=== PATIENT | female | born 1960 | race American Indian/Alaskan Native ===

== ENCOUNTER 2017-09-08 15:45 | Inpatient (IN) | payer MEDICAID ==
[2017-09-08 15:45] VITALS: BMI 30.4
--- NOTE | 2017-09-08 17:28 | C.PDOC ---
History Of Present Illness <Rachel Rodriges - Last Filed: 09/08/17 19:10> <Joslyn Montana - Last Filed: 09/08/17 22:25> 57 y/o female, with history of metastatic breast cancer for intermittent dizziness, headache, abdominal distension, vomiting, poor appetite, and generalized weakness. Patient states that her Oncologist sent her to the ER for evaluation. (Rachel Rodriges) History Per: Patient History/Exam Limitations: no limitations Onset/Duration Of Symptoms: Days Current Symptoms Are (Timing): Still Present Severity: Moderate <Rachel Rodriges - Last Filed: 09/08/17 19:10> <Joslyn Montana - Last Filed: 09/08/17 22:25> Time Seen by Provider: 09/08/17 17:11 Chief Complaint (Nursing): Abdominal Pain Past Medical History Reviewed: Historical Data, Nursing Documentation, Vital Signs - Medical History PMH: Anxiety, Depression, Fractures (RT.INDEX FINGER NO SURGERY), Gastritis, HTN Surgical History: Endoscopy Family History: States: No Known Family Hx - Social History Hx Alcohol Use: No Hx Substance Use: No - Immunization History Hx Tetanus Toxoid Vaccination: No Hx Influenza Vaccination: No Hx Pneumococcal Vaccination: No <Rachel Rodriges - Last Filed: 09/08/17 19:10> Vital Signs: Last Vital Signs Temp 98.2 F 09/08/17 16:41 Pulse 125 H 09/08/17 16:41 Resp 20 09/08/17 16:41 BP 154/83 H 09/08/17 16:41 Pulse Ox 97 09/08/17 19:10 Review Of Systems Except As Marked, All Systems Reviewed And Found Negative. Constitutional: Positive for: Weakness. Negative for: Fever, Chills Gastrointestinal: Positive for: Vomiting Neurological: Positive for: Headache, Dizziness <Rachel Rodriges - Last Filed: 09/08/17 19:10> Physical Exam - Physical Exam Appears: Non-toxic, Chronically Ill Skin: Normal Color, Warm Head: Atraumatic, Normacephalic Eye(s): bilateral: Normal Inspection Nose: Normal Oral Mucosa: Moist Neck: Supple Chest: Symmetrical Cardiovascular: Rhythm Regular Respiratory: Normal Breath Sounds, No Accessory Muscle Use, No Rales, No Rhonchi , No Wheezing Gastrointestinal/Abdominal: Normal Exam, Soft, Tenderness (mild tenderness in lower abdomen), Distention Extremity: Normal ROM Neurological/Psych: Oriented x3, Normal Speech, Normal Motor, Normal Sensation <Rachel Rodriges - Last Filed: 09/08/17 19:10> ED Course And Treatment - Laboratory Results Result Diagrams: 18 18:39 0218 18:39 O2 Sat by Pulse Oximetry: 97 (RA) Pulse Ox Interpretation: Normal - Radiology CXR: Interpreted by Me, Viewed By Me CXR Interpretation: Yes: No Acute Disease Progress Note: CXR, CT-Head and CT-Abd/Pelv. have been ordered. Patient will be admitted to hospital. <Rachel Rodriges - Last Filed: 09/08/17 19:10> - Laboratory Results Result Diagrams: 09/08/17 18:39 02 18:39 - CT Scan/US CT head Other Rad Studies (CT/US): Read By Radiologist, Radiology Report Reviewed CT/US Interpretation: EXAM: CT Head Without Intravenous Contrast. CLINICAL HISTORY: 57 years old, female; Pain; Headache; Headache not specified; Patient HX: H/o breast ca; Additional. info: Headache/nausea. TECHNIQUE: Axial computed tomography images of the head/brain without intravenous contrast. All CT scans at. this facility use one or more dose reduction techniques, viz.: automated exposure control; ma/kV. adjustment per patient size (including targeted exams where dose is matched to indication; i.e. head);. or iterative reconstruction technique. COMPARISON: No relevant prior studies available. FINDINGS: Brain: Old bilateral lacunar infarcts. Hypodensity in the white matter consistent with chronic small. vessel disease. No intracranial mass, mass effect, or midline shift. No hemorrhage. Ventricles: Unremarkable. No ventriculomegaly. Bones/joints: Unremarkable. No acute fracture. Soft tissues : Unremarkable. Sinuses: Unremarkable as visualized. No acute sinusitis. Mastoid air cells: Unremarkable as visualized. No mastoid effusion. IMPRESSION : No acute intracranial abnormality Ct abd/pelvis Other Rad Studies (CT/US): Read By Radiologist, Radiology Report Reviewed CT/US Interpretation: EXAM: CT Abdomen and Pelvis With Intravenous Contrast. CLINICAL HISTORY: 57 years old, female; Pain; Abdominal pain; Generalized; Additional info: Abd pain/poor appetite, h/o. breast ca. TECHNIQUE: Axial computed tomography images of the abdomen and pelvis with intravenous contrast. All CT. scans at this facility use one or more dose reduction techniques, viz. : automated exposure control;. ma/kV adjustment per patient size (including targeted exams where dose is matched to indication; i.e. head); or iterative reconstruction technique. Coronal and sagittal reformatted images were created and reviewed. CONTRAST: 100 mL of omnipaque 300 administered intravenously. COMPARISON: CT - IR NEEDLE BX LIVER PERC 2015-08-18 12:21. FINDINGS: Lower thorax: Trace left pleural effusion. Mild cardiomegaly. Nonspecific thickening of the distal. esophagus. Subsegmental atelectasis left lung base. ABDOMEN: Liver: Hepatomegaly. Markedly heterogeneous liver with nodular contour suggestive of cirrhosis. Multiple hypodense areas within the liver. Cannot exclude underlying metastatic lesions. Gallbladder and bile ducts: Gallbladder not definitely visualized. No ductal dilation. Pancreas: Unremarkable. No mass. No ductal dilation. Spleen: Unremarkable. No splenomegaly. Adrenals: Right adrenal gland is 2.5 CM indeterminate left adrenal mass. Kidneys and ureters: Moderate right hydronephrosis. Tiny bilateral renal cortical cysts. Stomach and bowel: Stomach is unremarkable. No small bowel obstruction. Large amount retained. stool in colon. Appendix: No findings to suggest acute appendicitis. PELVIS: Bladder: Unremarkable. No mass. Reproductive: Hysterectomy. ABDOMEN and PELVIS: Intraperitoneal space: Small amount of perihepatic ascites. Trace pelvic ascites. No free air. Bones/joints: Diffuse sclerotic osseous metastases. No acute fracture. No dislocation. Soft tissues: Diffuse subcutaneous edema. Vasculature: Atherosclerotic vascular disease. No abdominal aortic aneurysm. Lymph nodes: Unremarkable. No enlarged lymph nodes. Tubes, lines and devices: Catheter tip in superior vena cava. Other findings : Stranding of the mesenteric fat. IMPRESSION: 1. Hepatomegaly. Markedly heterogeneous liver with nodular contour suggestive of cirrhosis. Multiple hypodense areas within the liver. Cannot exclude underlying metastatic lesions. 2. Constipation. 3. Moderate right hydronephrosis. 4. Indeterminate left adrenal mass. 5. Diffuse osseous metastases. <Joslyn Montana - Last Filed: 09/08/17 22:25> Disposition - Disposition Disposition Time: 19:09 <Rachel Rodriges - Last Filed: 09/08/17 19:10> <Joslyn Montana - Last Filed: 09/08/17 22:25> - Disposition Disposition: HOSPITALIZED Condition: FAIR Forms: [facility] ([place]) - Clinical Impression Clinical Impression: Abdominal pain, Vomiting, Nausea, Headache, Metastatic breast cancer - PA / BOOKKEEPING ASSISTANT / Resident Statement MD/DO has reviewed & agrees with the documentation as recorded. - Scribe Statement The provider has reviewed the documentation as recorded by the Scribe <Rachel Rodriges - Last Filed: 09/08/17 19:10> <Joslyn Montana - Last Filed: 09/08/17 22:25> - Scribe Statement Vijaya Ann Provider Attestation All medical record entries made by the Scribe were at my direction and personally dictated by me. I have reviewed the chart and agree that the record accurately reflects my personal performance of the history, physical exam, medical decision making, and the department course for this patient. I have also personally directed, reviewed, and agree with the discharge instructions and disposition. (Rachel Rodriges) Physician Patient Turnover Patient Signed Over To: Joslyn Montana Handoff Comments: Ct abd/pelvis and head CT pending <Rachel Rodriges - Last Filed: 09/08/17 19:10>
[2017-09-08] MEDS ORDERED: Sodium Chloride 0.9% 500 ML IV STA (17:29)
[2017-09-08] MEDS ORDERED: Iohexol 240 (50 ml) PO STA (17:29)
[2017-09-08] MEDS ORDERED: Sodium Chloride 0.9% 500 ML IV ONE (18:11)
[2017-09-08] MEDS ORDERED: Iohexol 240 (50 ml) ONE (18:11)
[2017-09-08 18:52] LABS: SQUAMOUS EPITHIAL 1 /hpf (0-5); URINE BACTERIA OCC (<OCC); URINE BILIRUBIN NEGATIVE (NEGATIVE); URINE BLOOD NEGATIVE (NEGATIVE); URINE CLARITY Clear (Clear); URINE COLOR Amber (YELLOW); URINE GLUCOSE (UA) 1+ mg/dL (Normal); URINE LEUKOCYTE ESTERASE NEG Leu/uL (Negative); URINE PROTEIN 1+ mg/dL (NEGATIVE)
[2017-09-08 18:54] LABS: HEMOGLOBIN 10.7 g/dL (11.0-16.0); MEAN CELL VOLUME 93.4 fL (81.0-99.0); MEAN CORPUSCULAR HEMOGLOBIN 31.8 pg (27.0-31.0); MEAN PLATELET VOLUME 9.4 fL (7.2-11.7); PLATELET COUNT 175 K/uL (130-400); RBC 3.37 Mil/uL (3.80-5.20); RED CELL DISTRIBUTION WIDTH 15.4 % (11.5-14.5); WHITE BLOOD COUNT 5.4 K/uL (4.8-10.8)
[2017-09-08 19:07] LABS: ALB/GLOB RATIO 0.6 (1.0-2.1); ALBUMIN 2.9 g/dL (3.5-5.0); ALT/SGPT 108 U/L (9-52); AST/SGOT 491 U/L (14-36); BLOOD UREA NITROGEN 19 mg/dL (7-17); CALCIUM 8.3 mg/dl (8.6-10.4); GFR AFRICAN-AMERICAN > 60; GFR NON-AFRICAN AMERICAN > 60
[2017-09-08] MEDS ORDERED: Iohexol 300 100 ML IJ ONE (19:41)
[2017-09-08 20:04] LABS: LYMPH # 0.3 K/uL (1.0-4.3); MONO # 0.1 K/uL (0.0-0.8)
[2017-09-08 20:15] LABS: ANISOCYTOSIS SLIGHT; HYPOCHROMIC SLIGHT; LYMPHOCYTE 4 % (20-40); MONOCYTE 3 % (0-10); NEUTROPHIL 93 % (50-75); NUCLEATED RED BLOOD CELL 1 % (0-0); PLATELET ESTIMATE NORMAL (NORMAL); POIKILOCYTOSIS SLIGHT; TARGET CELLS SLIGHT; TOTAL CELLS COUNTED 100
--- NOTE | 2017-09-08 20:56 | CT ---
EXAM: CT Head Without Intravenous Contrast CLINICAL HISTORY: 57 years old, female; Pain; Headache; Headache not specified; Patient HX: H/o breast ca; Additional info: Headache/nausea TECHNIQUE: Axial computed tomography images of the head/brain without intravenous contrast. All CT scans at this facility use one or more dose reduction techniques, viz.: automated exposure control; ma/kV adjustment per patient size (including targeted exams where dose is matched to indication; i.e. head); or iterative reconstruction technique. COMPARISON: No relevant prior studies available. FINDINGS: Brain: Old bilateral lacunar infarcts. Hypodensity in the white matter consistent with chronic small vessel disease. No intracranial mass, mass effect, or midline shift. No hemorrhage. Ventricles: Unremarkable. No ventriculomegaly. Bones/joints: Unremarkable. No acute fracture. Soft tissues: Unremarkable. Sinuses: Unremarkable as visualized. No acute sinusitis. Mastoid air cells: Unremarkable as visualized. No mastoid effusion. IMPRESSION: No acute intracranial abnormality.
--- NOTE | 2017-09-08 21:16 | CT ---
EXAM: CT Abdomen and Pelvis With Intravenous Contrast CLINICAL HISTORY: 57 years old, female; Pain; Abdominal pain; Generalized; Additional info: Abd pain/poor appetite, h/o breast ca TECHNIQUE: Axial computed tomography images of the abdomen and pelvis with intravenous contrast. All CT scans at this facility use one or more dose reduction techniques, viz.: automated exposure control; ma/kV adjustment per patient size (including targeted exams where dose is matched to indication; i.e. head); or iterative reconstruction technique. Coronal and sagittal reformatted images were created and reviewed. CONTRAST: 100 mL of omnipaque 300 administered intravenously. COMPARISON: CT - IR NEEDLE BX LIVER PERC 2015-08-18 12:21 FINDINGS: Lower thorax: Trace left pleural effusion. Mild cardiomegaly. Nonspecific thickening of the distal esophagus. Subsegmental atelectasis left lung base. ABDOMEN: Liver: Hepatomegaly. Markedly heterogeneous liver with nodular contour suggestive of cirrhosis. Multiple hypodense areas within the liver. Cannot exclude underlying metastatic lesions. Gallbladder and bile ducts: Gallbladder not definitely visualized. No ductal dilation. Pancreas: Unremarkable. No mass. No ductal dilation. Spleen: Unremarkable. No splenomegaly. Adrenals: Right adrenal gland is 2.5 CM indeterminate left adrenal mass. Kidneys and ureters: Moderate right hydronephrosis. Tiny bilateral renal cortical cysts. Stomach and bowel: Stomach is unremarkable. No small bowel obstruction. Large amount retained stool in colon. Appendix: No findings to suggest acute appendicitis. PELVIS: Bladder: Unremarkable. No mass. Reproductive: Hysterectomy. ABDOMEN and PELVIS: Intraperitoneal space: Small amount of perihepatic ascites. Trace pelvic ascites. No free air. Bones/joints: Diffuse sclerotic osseous metastases. No acute fracture. No dislocation. Soft tissues: Diffuse subcutaneous edema. Vasculature: Atherosclerotic vascular disease. No abdominal aortic aneurysm. Lymph nodes: Unremarkable. No enlarged lymph nodes. Tubes, lines and devices: Catheter tip in superior vena cava. Other findings: Stranding of the mesenteric fat. IMPRESSION: 1. Hepatomegaly. Markedly heterogeneous liver with nodular contour suggestive of cirrhosis. Multiple hypodense areas within the liver. Cannot exclude underlying metastatic lesions. 2. Constipation. 3. Moderate right hydronephrosis. 4. Indeterminate left adrenal mass. 5. Diffuse osseous metastases. 6. Remainder of findings as above.
[2017-09-08] MEDS: Sodium Chloride 0.9% 1,000 ML IV SCH (22:41)
[2017-09-08] MEDS ORDERED: cefTRIAXone IV 1 gm in Dextros 50 ML IVPB ONE (22:46)
--- NOTE | 2017-09-09 08:22 | RAD ---
HISTORY: SOB COMPARISON: None available. TECHNIQUE: Chest PA and lateral FINDINGS: LUNGS: Right sided MediPort extends to the cavoatrial junction. No focal consolidation. Please note that chest x-ray has limited sensitivity for the detection of pulmonary masses. PLEURA: No significant pleural effusion identified. No definite pneumothorax . CARDIOVASCULAR: Heart size appears within normal limits. OSSEOUS STRUCTURES: Degenerative changes. VISUALIZED UPPER ABDOMEN: Unremarkable. OTHER FINDINGS: None. IMPRESSION: Right-sided MediPort. Elevation of the left hemidiaphragm.
[2017-09-09] MEDS: Sodium Chloride 0.9% 1,000 ML IV SCH ×2 (12:45→16:25)
--- NOTE | 2017-09-09 16:42 | CP.PCM.CON ---
History of Present Illness - History of Present Illness History of Present Illness: 57 yo woman with history of metastatic breast cancer, with clinical and radiologic evidence of disease progression, presenting with abdominal pain, decreased appetite, diarrhea and generalized weakness. She has CAT scans showing disease progression in the liver with increasing tumor markers. PMHx- diagnosed in 2013 with T1cN1 left breast cancer,ER+,ID-,[id number] negative, s/p mastectomy, underwent chemotherapy followed by hormonal therapy. She was found to have increased tumor markers, while on Tamoxifen, CAT scan showing liver mets, biopsy positive for metastatic breast cancer. She was started on chemotherapy, then on hormonal therapy, currently back on chemo Past Patient History - Past Medical History & Family History Past Medical History?: Yes - Past Social History Smoking Status: Light Smoker < 10 Cigarettes Daily - CARDIAC Hx Hypertension: Yes - PULMONARY Hx Respiratory Disorders: No - NEUROLOGICAL Hx Neurological Disorder: Yes HX Cerebrovascular Accident: Yes - HEENT Hx HEENT Problems: No - RENAL Hx Chronic Kidney Disease: No - ENDOCRINE/METABOLIC Hx Endocrine Disorders: No - HEMATOLOGICAL/ONCOLOGICAL Hx Blood Disorders: Yes Hx Blood Transfusions: Yes Hx Blood Transfusion Reaction: No Hx Cancer: Yes (BREAST LEFT) Hx Chemotherapy: Yes Hx Metastesis: Yes (LIVER) - INTEGUMENTARY Hx Dermatological Problems: Yes Other/Comment: SCARS FROM ANN IN CHILDHOOD/ABDOMEN - MUSCULOSKELETAL/RHEUMATOLOGICAL Hx Falls: No - GASTROINTESTINAL Hx Bowel Surgery: Yes Hx Colostomy: Yes (reversed) Hx Gastritis: Yes - GENITOURINARY/GYNECOLOGICAL Hx Genitourinary Disorders: Yes Hx Reproductive Disorders: Yes - PSYCHIATRIC Hx Substance Use: No - SURGICAL HISTORY Hx Surgeries: Yes Hx Hysterectomy: Yes Hx Mastectomy: Yes (LEFT) Other/Comment: liver biopsy. portacath insertion 07/2015 - ANESTHESIA Hx Anesthesia: Yes Hx Anesthesia Reactions: No Hx Malignant Hyperthermia: No Meds Allergies/Adverse Reactions: Allergies Allergy/AdvReac Type Severity Reaction Status Date / Time No Known Allergies Allergy Verified 08/15/15 09:57 - Medications Medications: Current Medications Docusate Sodium (Colace) 100 mg PO BID [facility] Ceftriaxone Sodium 1 gm/ (Sodium Chloride) 100 mls @ 100 mls/hr IVPB DAILY [facility] Last Admin: 09/09/17 10:09 Dose: 100 mls/hr Sodium Chloride (Sodium Chloride 0.9%) 1,000 mls @ 40 mls/hr IV .Q24H [facility] Magnesium Hydroxide (Milk Of Magnesia) 30 ml PO HS [facility] Pantoprazole Sodium (Protonix Inj) 40 mg IVP DAILY [facility] Pneumococcal Polyvalent Vaccine (Pneumovax 23 Vaccine) 0.5 ml IM .ONCE ONE Stop: 09/11/17 10:01 Results - Vital Signs Recent Vital Signs: Last Vital Signs Temp 98.7 F 09/09/17 08:00 Pulse 98 H 09/09/17 08:00 Resp 20 09/09/17 08:00 BP 129/76 09/09/17 08:00 Pulse Ox 95 09/09/17 08:00 - Labs Result Diagrams: 09/08/17 18:39 09/08/17 18:39 Labs: Laboratory Results - last 24 hr 09/08/17 09/08/17 09/08/17 18:39 18:39 18:39 WBC 5.4 RBC 3.37 L Hgb 10.7 L Hct 31.5 L MCV 93.4 D MCH 31.8 H MCHC 34.0 RDW 15.4 H Plt Count 175 MPV 9.4 Neut % (Auto) 93.0 H Lymph % (Auto) 5.0 L [place] % (Auto) 2.0 Eos % (Auto) 0.0 Baso % (Auto) 0.0 Neut # (Auto) 5.0 Lymph # (Auto) 0.3 L [place] # (Auto) 0.1 Eos # (Auto) 0.0 Baso # (Auto) 0.0 Neutrophils % (Manual) 93 H Lymphocytes % (Manual) 4 L Monocytes % (Manual) 3 Nucleated RBC % 1 H Platelet Estimate Normal Hypochromasia (manual) Slight Poikilocytosis (manual Slight Anisocytosis (manual) Slight Target Cells Slight Sodium 135 Potassium 5.0 Chloride 103 Carbon Dioxide 21 L Anion Gap 16 BUN 19 H Creatinine 0.8 Est GFR ( Amer) > 60 Est GFR (Non-Af Amer) > 60 Random Glucose 171 H Calcium 8.3 L Total Bilirubin 3.2 H AST 491 H ALT 108 H D Alkaline Phosphatase 197 H Total Protein 7.6 Albumin 2.9 L D Globulin 4.7 H Albumin/Globulin Ratio 0.6 L Urine Color Pamela Urine Clarity Clear Urine pH 5.0 Ur Specific [place] 1.027 Urine Protein 1+ H Urine Glucose (UA) 1+ Urine Ketones Trace Urine Blood Negative Urine Nitrate Negative Urine Bilirubin Negative Urine Urobilinogen 4.0 H Ur Leukocyte Esterase Neg Urine WBC (Auto) 3 Urine RBC (Auto) 2 Ur Squamous Epith Cells 1 Urine Bacteria Occ H Assessment & Plan (1) Metastatic breast cancer Assessment and Plan: 57 yo woman with metastatic breast cancer, CAT scan and tumor markers showing disease progression. Agree with IVF, symptom management. Pain meds, treatment of constipation,, Venous Doppler of lower extremities. Will also discuss with patient and family about disease progression and overall prognosis Status: Acute
[2017-09-09] MEDS: Docusate-Senna 50 mg-8.6 mg Tab PO SCH (17:54)
--- NOTE | 2017-09-09 18:39 | CP.PCM.HP ---
Past Patient History - Past Medical History & Family History Past Medical History?: Yes - Past Social History Smoking Status: Light Smoker < 10 Cigarettes Daily - CARDIAC Hx Hypertension: Yes - PULMONARY Hx Respiratory Disorders: No - NEUROLOGICAL Hx Neurological Disorder: Yes HX Cerebrovascular Accident: Yes - HEENT Hx HEENT Problems: No - RENAL Hx Chronic Kidney Disease: No - ENDOCRINE/METABOLIC Hx Endocrine Disorders: No - HEMATOLOGICAL/ONCOLOGICAL Hx Blood Disorders: Yes Hx Blood Transfusions: Yes Hx Blood Transfusion Reaction: No Hx Cancer: Yes (BREAST LEFT) Hx Chemotherapy: Yes Hx Metastesis: Yes (LIVER) - INTEGUMENTARY Hx Dermatological Problems: Yes Other/Comment: SCARS FROM ANN IN CHILDHOOD/ABDOMEN - MUSCULOSKELETAL/RHEUMATOLOGICAL Hx Falls: No - GASTROINTESTINAL Hx Bowel Surgery: Yes Hx Colostomy: Yes (reversed) Hx Gastritis: Yes - GENITOURINARY/GYNECOLOGICAL Hx Genitourinary Disorders: Yes Hx Reproductive Disorders: Yes - PSYCHIATRIC Hx Substance Use: No - SURGICAL HISTORY Hx Surgeries: Yes Hx Hysterectomy: Yes Hx Mastectomy: Yes (LEFT) Other/Comment: liver biopsy. portacath insertion 07/2015 - ANESTHESIA Hx Anesthesia: Yes Hx Anesthesia Reactions: No Hx Malignant Hyperthermia: No Meds Allergies/Adverse Reactions: Allergies Allergy/AdvReac Type Severity Reaction Status Date / Time No Known Allergies Allergy Verified 08/15/15 09:57 Physical Exam - Constitutional Appears: Well - Head Exam Head Exam: ATRAUMATIC, NORMAL INSPECTION, NORMOCEPHALIC - Eye Exam Eye Exam: EOMI, Normal appearance, PERRL Pupil Exam: NORMAL ACCOMODATION, PERRL - ENT Exam ENT Exam: Mucous Membranes Moist, Normal Exam - Neck Exam Neck exam: Positive for: Normal Inspection - Respiratory Exam Respiratory Exam: Decreased Breath Sounds - Cardiovascular Exam Cardiovascular Exam: REGULAR RHYTHM, +S1, +S2 - GI/Abdominal Exam GI & Abdominal Exam: Diminished Bowel Sounds, Soft - Rectal Exam Rectal Exam: Deferred Results - Vital Signs Recent Vital Signs: Last Vital Signs Temp 98.0 F 09/09/17 15:24 Pulse 104 H 09/09/17 15:24 Resp 20 09/09/17 15:24 BP 129/83 09/09/17 15:24 Pulse Ox 95 09/09/17 15:24 - Labs Result Diagrams: 09/08/17 18:39 09/08/17 18:39 Labs: Laboratory Results - last 24 hr 09/08/17 09/08/1709/08/18 18:39 18:39 18:39 WBC 5.4 RBC 3.37 L Hgb 10.7 L Hct 31.5 L MCV 93.4 D MCH 31.8 H MCHC 34.0 RDW 15.4 H Plt Count 175 MPV 9.4 Neut % (Auto) 93.0 H Lymph % (Auto) 5.0 L [place] % (Auto) 2.0 Eos % (Auto) 0.0 Baso % (Auto) 0.0 Neut # (Auto) 5.0 Lymph # (Auto) 0.3 L [place] # (Auto) 0.1 Eos # (Auto) 0.0 Baso # (Auto) 0.0 Neutrophils % (Manual) 93 H Lymphocytes % (Manual) 4 L Monocytes % (Manual) 3 Nucleated RBC % 1 H Platelet Estimate Normal Hypochromasia (manual) Slight Poikilocytosis (manual Slight Anisocytosis (manual) Slight Target Cells Slight Sodium 135 Potassium 5.0 Chloride 103 Carbon Dioxide 21 L Anion Gap 16 BUN 19 H Creatinine 0.8 Est GFR ( Amer) > 60 Est GFR (Non-Af Amer) > 60 Random Glucose 171 H Calcium 8.3 L Total Bilirubin 3.2 H AST 491 H ALT 108 H D Alkaline Phosphatase 197 H Total Protein 7.6 Albumin 2.9 L D Globulin 4.7 H Albumin/Globulin Ratio 0.6 L Urine Color Pamela Urine Clarity Clear Urine pH 5.0 Ur Specific [place] 1.027 Urine Protein 1+ H Urine Glucose (UA) 1+ Urine Ketones Trace Urine Blood Negative Urine Nitrate Negative Urine Bilirubin Negative Urine Urobilinogen 4.0 H Ur Leukocyte Esterase Neg Urine WBC (Auto) 3 Urine RBC (Auto) 2 Ur Squamous Epith Cells 1 Urine Bacteria Occ H
[2017-09-09] MEDS: Magnesium Hydroxide Susp 30 ml UD PO SCH (22:00)
--- NOTE | 2017-09-09 23:13 | CARD ---
APPROVED REPORT EKG Measurement Heart [id number] <Conclusion> Sinus tachycardia Otherwise normal ECG
[2017-09-10] MEDS: Docusate-Senna 50 mg-8.6 mg Tab PO SCH ×2 (09:43→18:02)
[2017-09-10] MEDS: Sodium Chloride 0.9% 1,000 ML IV SCH (16:25)
--- NOTE | 2017-09-10 17:57 | CP.PCM.PN ---
Subjective - Date & Time of Evaluation Date of Evaluation: 09/10/17 Time of Evaluation: 09:00 - Subjective Subjective: clinically same Objective - Vital Signs/Intake and Output Vital Signs (last 24 hours): Temp Pulse Resp BP Pulse Ox 98.3 F 101 H 20 129/69 97 09/10/17 15:15 09/10/17 15:15 09/10/17 15:15 09/10/17 15:15 09/10/17 15:15 Intake and Output: 09/10/17 09/10/17 06:59 18:59 Intake Total 460 440 Balance 460 440 - Medications Medications: Current Medications Docusate Sodium (Colace) 100 mg PO BID [facility] Last Admin: 09/10/17 09:23 Dose: 100 mg Ceftriaxone Sodium 1 gm/ (Sodium Chloride) 100 mls @ 100 mls/hr IVPB DAILY [facility] Last Admin: 09/10/17 10:30 Dose: 100 mls/hr Sodium Chloride (Sodium Chloride 0.9%) 1,000 mls @ 40 mls/hr IV .Q24H [facility] Last Admin: 09/09/17 16:25 Dose: 40 mls/hr Magnesium Hydroxide (Milk Of Magnesia) 30 ml PO HS [facility] Last Admin: 09/09/17 22:00 Dose: 30 ml Pantoprazole Sodium (Protonix Inj) 40 mg IVP DAILY [facility] Last Admin: 09/10/17 09:24 Dose: 40 mg Pneumococcal Polyvalent Vaccine (Pneumovax 23 Vaccine) 0.5 ml IM .ONCE ONE Stop: 09/11/17 10:01 Senna/Docusate Sodium (Senokot S 50 Mg-8.6 Mg) 1 tab PO BID [facility] Last Admin: 09/10/17 09:43 Dose: 1 tab - Labs Labs: 09/08/17 18:39 09/08/17 18:39 - Constitutional Appears: Well - Head Exam Head Exam: ATRAUMATIC, NORMAL INSPECTION, NORMOCEPHALIC - Eye Exam Eye Exam: EOMI, Normal appearance, PERRL Pupil Exam: NORMAL ACCOMODATION, PERRL - ENT Exam ENT Exam: Mucous Membranes Moist, Normal Exam - Neck Exam Neck Exam: Full ROM, Normal Inspection. absent: Lymphadenopathy - Respiratory Exam Respiratory Exam: Decreased Breath Sounds - Cardiovascular Exam Cardiovascular Exam: REGULAR RHYTHM, +S1, +S2 - GI/Abdominal Exam GI & Abdominal Exam: Soft, Diminished Bowel Sounds - Rectal Exam Rectal Exam: Deferred
[2017-09-10] MEDS: Magnesium Hydroxide Susp 30 ml UD PO SCH (21:56)
[2017-09-11 03:00] LABS: BASO # 0.2 K/uL (0.0-0.2); BASO % 2.2 % (0.0-2.0); HEMOGLOBIN 10.1 g/dL (11.0-16.0); LYMPH # 1.7 K/uL (1.0-4.3); LYMPH % 17.5 % (20.0-40.0); MEAN CELL VOLUME 92.8 fL (81.0-99.0); MEAN CORPUSCULAR HEMOGLOBIN 31.2 pg (27.0-31.0); MEAN CORPUSCULAR HGB CONC 33.6 g/dL (33.0-37.0); MEAN PLATELET VOLUME 8.2 fL (7.2-11.7); MONO # 0.1 K/uL (0.0-0.8); MONO % 0.7 % (0.0-10.0); NEUT # 7.8 K/uL (1.8-7.0); NEUT % 79.6 % (50.0-75.0); RBC 3.24 Mil/uL (3.80-5.20); RED CELL DISTRIBUTION WIDTH 14.8 % (11.5-14.5); WHITE BLOOD COUNT 9.8 K/uL (4.8-10.8)
[2017-09-11 03:17] LABS: ALB/GLOB RATIO 0.6 (1.0-2.1); ALBUMIN 2.3 g/dL (3.5-5.0); ALT/SGPT 173 U/L (9-52); AST/SGOT 593 U/L (14-36); BLOOD UREA NITROGEN 28 mg/dL (7-17); CALCIUM 7.3 mg/dl (8.6-10.4); GFR AFRICAN-AMERICAN > 60; GFR NON-AFRICAN AMERICAN 57; PLATELET COUNT 92 K/uL (130-400)
--- NOTE | 2017-09-11 03:30 | CP.PCM.PN ---
Subjective - Date & Time of Evaluation Date of Evaluation: 09/11/17 Time of Evaluation: 03:21 - Subjective Subjective: House Doctor paged for AMS 57F with PMHx of Metastatic Breast Cancer with evidence of disease progression ( currently FULL CODE) currently being managed and treated with Heme/Onc. As per nurse, on admission patient was AAOx3 and verbal. Over the past two days she has become more altered, decrease in appetite and overall she appears more restless. Patient is not responding to my questions, she replies yes when her named is called. She continues to move in bed, restless. Vitals: 150/80, 138, 99.8 rectal temp, 99 on 2L NC Assessment and Plan: AMS CBC, CMP, Mag, Phos, EKG (sinus tachy- no arrythmia noted), UA, Urine Culture , CXR Head CT Abdominal US (elevated t.bili and transaminitis) Labs revealed increasing transaminitis - will hold Rocephin for now. Elin Kirk DO, PGY-1 Objective - Vital Signs/Intake and Output Vital Signs (last 24 hours): Temp Pulse Resp BP Pulse Ox 98.2 F 101 H 20 140/87 94 L 09/11/17 00:00 09/10/17 15:15 09/11/17 00:00 09/11/17 00:00 09/11/17 00:00 Intake and Output: 09/10/17 09/11/17 18:59 06:59 Intake Total 440 100 Balance 440 100 - Medications Medications: Current Medications Docusate Sodium (Colace) 100 mg PO BID [facility] Last Admin: 09/10/17 18:01 Dose: 100 mg Ceftriaxone Sodium 1 gm/ (Sodium Chloride) 100 mls @ 100 mls/hr IVPB DAILY [facility] Last Admin: 09/10/17 10:30 Dose: 100 mls/hr Sodium Chloride (Sodium Chloride 0.9%) 1,000 mls @ 40 mls/hr IV .Q24H [facility] Last Admin: 09/10/17 16:25 Dose: 40 mls/hr Magnesium Hydroxide (Milk Of Magnesia) 30 ml PO HS [facility] Last Admin: 09/10/17 21:56 Dose: 30 ml Pantoprazole Sodium (Protonix Inj) 40 mg IVP DAILY [facility] Last Admin: 09/10/17 09:24 Dose: 40 mg Pneumococcal Polyvalent Vaccine (Pneumovax 23 Vaccine) 0.5 ml IM .ONCE ONE Stop: 09/11/17 10:01 Senna/Docusate Sodium (Senokot S 50 Mg-8.6 Mg) 1 tab PO BID [facility] Last Admin: 09/10/17 18:02 Dose: 1 tab - Labs Labs: 09/11/17 02:54 09/11/17 02:54
--- NOTE | 2017-09-11 04:20 | CT ---
EXAM: CT Head Without Intravenous Contrast CLINICAL HISTORY: 57 years old, female; Signs and symptoms; Altered mental status/memory loss; Additional info: AMS TECHNIQUE: Axial computed tomography images of the head/brain without intravenous contrast. All CT scans at this facility use one or more dose reduction techniques, viz.: automated exposure control; ma/kV adjustment per patient size (including targeted exams where dose is matched to indication; i.e. head); or iterative reconstruction technique. COMPARISON: CT - HEAD W/O CONTRAST 2017-09-08 19:51 FINDINGS: Brain: Mild atrophy. No intracranial hemorrhage. No mass. Few scattered foci of decreased attenuation within periventricular/subcortical white matter. Probable chronic infarcts about basal ganglia/internal capsules. No definite edema. Ventricles: No hydrocephalus. Bones/joints: No acute fracture. Soft tissues: Unremarkable. Vasculature: Mild atherosclerotic disease of intracranial arteries. Sinuses: No acute sinusitis. Mastoid air cells: No mastoid effusion. Orbits: Unremarkable as visualized. IMPRESSION: 1. Nonspecific white matter changes. Acute infarction may be CT occult within first 24 hours. If a focal deficit persists, consider followup CT or MRI for further evaluation. 2. Incidental/non-acute findings are described above.
[2017-09-11 04:57] LABS: BANDS 8 % (0-2); LYMPHOCYTE 9 % (20-40); NEUTROPHIL 83 % (50-75); PLATELET ESTIMATE DECREASED (NORMAL); TOTAL CELLS COUNTED 100
[2017-09-11 05:03] LABS: MONOCYTE 0 % (0-10)
--- NOTE | 2017-09-11 08:59 | RAD ---
HISTORY: AMS COMPARISON: Comparison is made with 09/08/2017 FINDINGS: LUNGS: No evidence of new infiltrate or consolidation in the lungs. PLEURA: No significant pleural effusion identified, no pneumothorax apparent. CARDIOVASCULAR: Normal. OSSEOUS STRUCTURES: No significant abnormalities. VISUALIZED UPPER ABDOMEN: Normal. OTHER FINDINGS: Right-sided Infusaport is again seen in place. IMPRESSION: No active disease. No significant interval change.
[2017-09-11] MEDS ORDERED: Pneumococcal 23-Valent Vaccine IM ONE (10:00)
[2017-09-11] MEDS ORDERED: Influenza Vaccine 60 mcg/0.5 mL SYR (4YR UP) IM ONE (10:05)
[2017-09-11] MEDS: Docusate-Senna 50 mg-8.6 mg Tab PO SCH ×2 (10:58→18:30)
--- NOTE | 2017-09-11 12:11 | US ---
HISTORY: elevated t.bili, transaminitis COMPARISON: Comparison is made to the previous CT dated 09/08/2017 TECHNIQUE: Sonographic evaluation of the right upper quadrant of the abdomen. FINDINGS: LIVER: Measures 20.9 cm in length. Heterogeneous increased echogenicity of the liver parenchyma. Nodular appearance of the liver is again noted. There are scattered small lesions in the liver demonstrate slight increased echogenicity compared to the rest of the liver. The differential consideration includes nodular regeneration of the liver parenchyma versus liver metastasis. Cirrhotic configuration of the liver is also noted. . GALLBLADDER: The gallbladder was not visualized in this exam. COMMON BILE DUCT: Measures 4.2 mm. No stones. No dilatation. PANCREAS: The pancreas was not well visualized in this study due to overlying bowel gas. RIGHT KIDNEY: Measures 9.9 x 4.9 x 5.7 cm in length. There is mild right hydronephrosis noted. This suspicious for nonobstructing calculus at the lower pole of the right kidney measures 0.7 x 0.6 x 0.7 centimeter. There is cortical cyst seen at the upper pole measures 0.5 x 0.6 x 0.5 centimeter. AORTA: Not well visualized due to overlying bowel gas. IVC: Not well visualized due to overlying bowel gas. OTHER FINDINGS: Trace of fluid noted at the upper abdomen. IMPRESSION: Limited study due to patient condition. Moderately enlarged markedly heterogeneous liver demonstrates nodular appearance and marked heterogeneous echotexture with patchy foci of slightly high echogenicity. Findings may represent advanced cirrhosis with nodular regeneration of the liver parenchyma. The possibility of scattered small tumors/metastasis is not totally excluded. Mild right hydronephrosis. Nonvisualization of the gallbladder. Small/ trace free fluid in the abdomen. The pancreas obscured by overlying bowel gas.
--- NOTE | 2017-09-11 13:03 | CP.PCM.CON ---
History of Present Illness - History of Present Illness History of Present Illness: CONSULT DICTATED BILATERAL CEREBRAL DYSFUNCTION ??METASTATIC PROCESS Vs POST ICTAL - NON CONVULSIVE SEIZURE ?METABOLIC Vs TOXIC ENCEPHALOPATHY MRI/EEG/IV HYDRATION /SZ PRECAUTION Past Patient History - Past Medical History & Family History Past Medical History?: Yes - Past Social History Smoking Status: Light Smoker < 10 Cigarettes Daily - CARDIAC Hx Hypertension: Yes - PULMONARY Hx Respiratory Disorders: No - NEUROLOGICAL HX Cerebrovascular Accident: Yes - HEENT Hx HEENT Problems: No - RENAL Hx Chronic Kidney Disease: No - ENDOCRINE/METABOLIC Hx Endocrine Disorders: No - HEMATOLOGICAL/ONCOLOGICAL Hx Blood Disorders: Yes Hx Blood Transfusions: Yes Hx Blood Transfusion Reaction: No Hx Cancer: Yes (BREAST LEFT) Hx Chemotherapy: Yes Hx Metastesis: Yes (LIVER) - INTEGUMENTARY Hx Dermatological Problems: Yes Other/Comment: SCARS FROM ANN IN CHILDHOOD/ABDOMEN - MUSCULOSKELETAL/RHEUMATOLOGICAL Hx Falls: No - GASTROINTESTINAL Hx Bowel Surgery: Yes Hx Colostomy: Yes (reversed) Hx Gastritis: Yes - GENITOURINARY/GYNECOLOGICAL Hx Genitourinary Disorders: Yes Hx Reproductive Disorders: Yes - PSYCHIATRIC Hx Substance Use: No - SURGICAL HISTORY Hx Surgeries: Yes Hx Hysterectomy: Yes Hx Mastectomy: Yes (LEFT) Other/Comment: liver biopsy. portacath insertion 07/2015 - ANESTHESIA Hx Anesthesia: Yes Hx Anesthesia Reactions: No Hx Malignant Hyperthermia: No Meds Allergies/Adverse Reactions: Allergies Allergy/AdvReac Type Severity Reaction Status Date / Time No Known Allergies Allergy Verified 08/15/15 09:57 - Medications Medications: Current Medications Docusate Sodium (Colace) 100 mg PO BID [facility] Last Admin: 09/11/17 10:58 Dose: 100 mg Sodium Chloride (Sodium Chloride 0.9%) 1,000 mls @ 40 mls/hr IV .Q24H [facility] Last Admin: 09/10/17 16:25 Dose: 40 mls/hr Magnesium Hydroxide (Milk Of Magnesia) 30 ml PO HS [facility] Last Admin: 09/10/17 21:56 Dose: 30 ml Pantoprazole Sodium (Protonix Inj) 40 mg IVP DAILY [facility] Last Admin: 09/11/17 10:58 Dose: 40 mg Senna/Docusate Sodium (Senokot S 50 Mg-8.6 Mg) 1 tab PO BID [facility] Last Admin: 09/11/17 10:58 Dose: 1 tab Results - Vital Signs Recent Vital Signs: Last Vital Signs Temp 98 F 09/11/17 07:42 Pulse 89 09/11/17 07:42 Resp 20 09/11/17 07:42 BP 133/87 09/11/17 07:42 Pulse Ox 96 09/11/17 07:42 - Labs Result Diagrams: 09/11/17 02:54 09/11/17 02:54 Labs: Laboratory Results - last 24 hr 09/11/17 09/11/17 02:54 02:54 WBC 9.8 D RBC 3.24 L Hgb 10.1 L Hct 30.0 L MCV 92.8 MCH 31.2 H MCHC 33.6 RDW 14.8 H Plt Count 92 L D MPV 8.2 Neut % (Auto) 79.6 H Lymph % (Auto) 17.5 L [place] % (Auto) 0.7 Eos % (Auto) 0.0 Baso % (Auto) 2.2 H Neut # (Auto) 7.8 H Lymph # (Auto) 1.7 [place] # (Auto) 0.1 Eos # (Auto) 0.0 Baso # (Auto) 0.2 Neutrophils % (Manual) 83 H Band Neutrophils % 8 H Lymphocytes % (Manual) 9 L Monocytes % (Manual) 0 Platelet Estimate Decreased L Sodium 139 Potassium 4.3 Chloride 109 H Carbon Dioxide 15 L Anion Gap 19 BUN 28 H Creatinine 1.0 Est GFR ( Amer) > 60 Est GFR (Non-Af Amer) 57 Random Glucose 141 H Calcium 7.3 L Phosphorus 3.4 Magnesium 2.0 Total Bilirubin 5.3 H AST 593 H D ALT 173 H D Alkaline Phosphatase 165 H Total Protein 6.3 Albumin 2.3 L D Globulin 4.0 H Albumin/Globulin Ratio 0.6 L
--- NOTE | 2017-09-11 13:14 | CP.PCM.CON ---
<Dilcia Hawkins - Last Filed: 09/11/17 13:14> History of Present Illness - History of Present Illness History of Present Illness: GI Fellow PGY4 Consult Note This is a 57 yo woman with history of metastatic breast cancer, with clinical and radiologic evidence of disease progression, presenting with abdominal pain, decreased appetite, diarrhea and generalized weakness. GI was consulted for elevated LFTs. Pt initially on admission was AAOx3 but had an acute decline with AMS and is now unable to answer questions and confused. CT shows metastatic lesion in the liver with hepatomegaly. Pt was diagnosed in 2013 with T1cN1 left breast cancer,ER+,[id number]-,[id number] negative, s/p mastectomy, underwent chemotherapy followed by hormonal therapy. She was found to have increased tumor markers, while on Tamoxifen, CAT scan showing liver mets, biopsy positive for metastatic breast cancer.She was started on chemotherapy, then on hormonal therapy, currently back on chemo. At the time of evaluation pt is AMS and hx from EMR and nursing. ROS: unable to be obtained 2/2 AMS PMHX: As stated in HPI PSHX: unable to be obtained 2/2 AMS FHx: unable to be obtained 2/2 AMS SHx: unable to be obtained 2/2 AMS Past Patient History - Past Medical History & Family History Past Medical History?: Yes - Past Social History Smoking Status: Light Smoker < 10 Cigarettes Daily - CARDIAC Hx Hypertension: Yes - PULMONARY Hx Respiratory Disorders: No - NEUROLOGICAL HX Cerebrovascular Accident: Yes - HEENT Hx HEENT Problems: No - RENAL Hx Chronic Kidney Disease: No - ENDOCRINE/METABOLIC Hx Endocrine Disorders: No - HEMATOLOGICAL/ONCOLOGICAL Hx Blood Disorders: Yes Hx Blood Transfusions: Yes Hx Blood Transfusion Reaction: No Hx Cancer: Yes (BREAST LEFT) Hx Chemotherapy: Yes Hx Metastesis: Yes (LIVER) - INTEGUMENTARY Hx Dermatological Problems: Yes Other/Comment: SCARS FROM ANN IN CHILDHOOD/ABDOMEN - MUSCULOSKELETAL/RHEUMATOLOGICAL Hx Falls: No - GASTROINTESTINAL Hx Bowel Surgery: Yes Hx Colostomy: Yes (reversed) Hx Gastritis: Yes - GENITOURINARY/GYNECOLOGICAL Hx Genitourinary Disorders: Yes Hx Reproductive Disorders: Yes - PSYCHIATRIC Hx Substance Use: No - SURGICAL HISTORY Hx Surgeries: Yes Hx Hysterectomy: Yes Hx Mastectomy: Yes (LEFT) Other/Comment: liver biopsy. portacath insertion 07/2015 - ANESTHESIA Hx Anesthesia: Yes Hx Anesthesia Reactions: No Hx Malignant Hyperthermia: No Meds Allergies/Adverse Reactions: Allergies Allergy/AdvReac Type Severity Reaction Status Date / Time No Known Allergies Allergy Verified 08/15/15 09:57 - Medications Medications: Current Medications Docusate Sodium (Colace) 100 mg PO BID [facility] Last Admin: 09/11/17 10:58 Dose: 100 mg Sodium Chloride (Sodium Chloride 0.9%) 1,000 mls @ 40 mls/hr IV .Q24H [facility] Last Admin: 09/10/17 16:25 Dose: 40 mls/hr Dextrose/Sodium Chloride (Dextrose 5%/0.45% Ns 1000 Ml) 1,000 mls @ 80 mls/hr IV .[id number] [facility] Lactulose (Enulose) 20 gm PO BID [facility] Lactulose (Enulose) 200 gm [place] BID ONE Stop: 09/11/17 13:12 Lorazepam (Ativan) 1 mg IVP ONCE ONE Stop: 09/12/17 15:01 Magnesium Hydroxide (Milk Of Magnesia) 30 ml PO HS [facility] Last Admin: 09/10/17 21:56 Dose: 30 ml Pantoprazole Sodium (Protonix Inj) 40 mg IVP DAILY [facility] Last Admin: 09/11/17 10:58 Dose: 40 mg Rifaximin (Xifaxan) 550 mg PO BID [facility] Senna/Docusate Sodium (Senokot S 50 Mg-8.6 Mg) 1 tab PO BID [facility] Last Admin: 09/11/17 10:58 Dose: 1 tab Physical Exam - Constitutional Appears: Confused - Head Exam Head Exam: ATRAUMATIC, NORMAL INSPECTION, NORMOCEPHALIC - Eye Exam Eye Exam: Normal appearance - ENT Exam ENT Exam: Mucous Membranes Moist, Normal Exam - Neck Exam Neck exam: Positive for: Normal Inspection - Respiratory Exam Respiratory Exam: Clear to Auscultation Bilateral, NORMAL BREATHING PATTERN - Cardiovascular Exam Cardiovascular Exam: Tachycardia - GI/Abdominal Exam GI & Abdominal Exam: Normal Bowel Sounds, Organomegaly, Soft. absent: Distended , Guarding, Tenderness - Extremities Exam Extremities exam: Positive for: full ROM - Back Exam Back exam: NORMAL INSPECTION - Neurological Exam Additional comments: AMS - Psychiatric Exam Psychiatric exam: Depressed - Skin Skin Exam: Dry, Intact, Normal Color, Warm Results - Vital Signs Recent Vital Signs: Last Vital Signs Temp 98 F 09/11/17 07:42 Pulse 89 09/11/17 07:42 Resp 20 09/11/17 07:42 BP 133/87 09/11/17 07:42 Pulse Ox 96 09/11/17 07:42 - Labs Result Diagrams: 09/11/17 02:54 09/11/17 02:54 Labs: Laboratory Results - last 24 hr 09/11/17 09/11/17 02:54 02:54 WBC 9.8 D RBC 3.24 L Hgb 10.1 L Hct 30.0 L MCV 92.8 MCH 31.2 H MCHC 33.6 RDW 14.8 H Plt Count 92 L D MPV 8.2 Neut % (Auto) 79.6 H Lymph % (Auto) 17.5 L [place] % (Auto) 0.7 Eos % (Auto) 0.0 Baso % (Auto) 2.2 H Neut # (Auto) 7.8 H Lymph # (Auto) 1.7 [place] # (Auto) 0.1 Eos # (Auto) 0.0 Baso # (Auto) 0.2 Neutrophils % (Manual) 83 H Band Neutrophils % 8 H Lymphocytes % (Manual) 9 L Monocytes % (Manual) 0 Platelet Estimate Decreased L Sodium 139 Potassium 4.3 Chloride 109 H Carbon Dioxide 15 L Anion Gap 19 BUN 28 H Creatinine 1.0 Est GFR ( Amer) > 60 Est GFR (Non-Af Amer) 57 Random Glucose 141 H Calcium 7.3 L Phosphorus 3.4 Magnesium 2.0 Total Bilirubin 5.3 H AST 593 H D ALT 173 H D Alkaline Phosphatase 165 H Total Protein 6.3 Albumin 2.3 L D Globulin 4.0 H Albumin/Globulin Ratio 0.6 L Assessment & Plan - Assessment and Plan (Free Text) Assessment: This is a 57yF with pmhx of metastatic breast cancer with AMS. 1. Elevated LFTs, metatstic liver lesion, cholestatsis 2. AMS 2/2 liver lesions vs brain mets 3. Metastatic Breast Ca Plan: -Continue supportive care -Start lactulose po and via rectum for 2-3 BM daily to see if improved AMS -Rifaxamin bid for AMS -Neurology cs -MRI of brain to r/o brain lesions -If concern for obstructive jaundice can consider further imaging and possible stent placement, will monitor clinical course <Daniel Granados - Last Filed: 09/11/17 14:34> Meds - Medications Medications: Current Medications Docusate Sodium (Colace) 100 mg PO BID [facility] Last Admin: 09/11/17 10:58 Dose: 100 mg Sodium Chloride (Sodium Chloride 0.9%) 1,000 mls @ 40 mls/hr IV .Q24H [facility] Last Admin: 09/10/17 16:25 Dose: 40 mls/hr Dextrose/Sodium Chloride (Dextrose 5%/0.45% Ns 1000 Ml) 1,000 mls @ 80 mls/hr IV .[id number] [facility] Last Admin: 09/11/17 14:20 Dose: 80 mls/hr Lactulose (Enulose) 20 gm PO BID [facility] Lactulose (Enulose) 200 gm [place] BID ONE Stop: 09/11/17 13:12 Lorazepam (Ativan) 1 mg IVP ONCE ONE Stop: 09/12/17 15:01 Magnesium Hydroxide (Milk Of Magnesia) 30 ml PO HS [facility] Last Admin: 09/10/17 21:56 Dose: 30 ml Pantoprazole Sodium (Protonix Inj) 40 mg IVP DAILY [facility] Last Admin: 09/11/17 10:58 Dose: 40 mg Rifaximin (Xifaxan) 550 mg PO BID [facility] Senna/Docusate Sodium (Senokot S 50 Mg-8.6 Mg) 1 tab PO BID [facility] Last Admin: 09/11/17 10:58 Dose: 1 tab Results - Vital Signs Recent Vital Signs: Last Vital Signs Temp 98 F 09/11/17 07:42 Pulse 89 09/11/17 07:42 Resp 20 09/11/17 07:42 BP 133/87 09/11/17 07:42 Pulse Ox 96 09/11/17 07:42 - Labs Result Diagrams: 09/11/17 02:54 09/11/17 02:54 Labs: Laboratory Results - last 24 hr 09/11/17 09/11/17 02:54 02:54 WBC 9.8 D RBC 3.24 L Hgb 10.1 L Hct 30.0 L MCV 92.8 MCH 31.2 H MCHC 33.6 RDW 14.8 H Plt Count 92 L D MPV 8.2 Neut % (Auto) 79.6 H Lymph % (Auto) 17.5 L [place] % (Auto) 0.7 Eos % (Auto) 0.0 Baso % (Auto) 2.2 H Neut # (Auto) 7.8 H Lymph # (Auto) 1.7 [place] # (Auto) 0.1 Eos # (Auto) 0.0 Baso # (Auto) 0.2 Neutrophils % (Manual) 83 H Band Neutrophils % 8 H Lymphocytes % (Manual) 9 L Monocytes % (Manual) 0 Platelet Estimate Decreased L Sodium 139 Potassium 4.3 Chloride 109 H Carbon Dioxide 15 L Anion Gap 19 BUN 28 H Creatinine 1.0 Est GFR ( Amer) > 60 Est GFR (Non-Af Amer) 57 Random Glucose 141 H Calcium 7.3 L Phosphorus 3.4 Magnesium 2.0 Total Bilirubin 5.3 H AST 593 H D ALT 173 H D Alkaline Phosphatase 165 H Total Protein 6.3 Albumin 2.3 L D Globulin 4.0 H Albumin/Globulin Ratio 0.6 L Attending/Attestation - Attestation I have personally seen and examined this patient.: Yes I have fully participated in the care of the patient.: Yes I have reviewed all pertinent clinical information: Yes Notes (Text): 09/11/17 14:33 57 year female with h/o metastatic breast cancer admitted with AMS and jaundice. 1. Jaundice 2. Liver metastases 3. Altered mental status Plan: -check ammonia -start lactulose/rfiaxamin -recommend neuro c/s -jaundice likely due to liver mets -supportive care
--- NOTE | 2017-09-11 13:46 | CP.PCM.PN ---
Subjective - Date & Time of Evaluation Date of Evaluation: 09/11/17 Time of Evaluation: 09:00 - Subjective Subjective: clinically same Objective - Vital Signs/Intake and Output Vital Signs (last 24 hours): Temp Pulse Resp BP Pulse Ox 98 F 89 20 133/87 96 09/11/17 07:42 09/11/17 07:42 09/11/17 07:42 09/11/17 07:42 09/11/17 07:42 Intake and Output: 09/11/17 09/11/17 06:59 18:59 Intake Total 100 Balance 100 - Medications Medications: Current Medications Docusate Sodium (Colace) 100 mg PO BID [facility] Last Admin: 09/11/17 10:58 Dose: 100 mg Sodium Chloride (Sodium Chloride 0.9%) 1,000 mls @ 40 mls/hr IV .Q24H [facility] Last Admin: 09/10/17 16:25 Dose: 40 mls/hr Dextrose/Sodium Chloride (Dextrose 5%/0.45% Ns 1000 Ml) 1,000 mls @ 80 mls/hr IV .[id number] [facility] Lactulose (Enulose) 20 gm PO BID [facility] Lactulose (Enulose) 200 gm [place] BID ONE Stop: 09/11/17 13:12 Lorazepam (Ativan) 1 mg IVP ONCE ONE Stop: 09/12/17 15:01 Magnesium Hydroxide (Milk Of Magnesia) 30 ml PO HS [facility] Last Admin: 09/10/17 21:56 Dose: 30 ml Pantoprazole Sodium (Protonix Inj) 40 mg IVP DAILY [facility] Last Admin: 09/11/17 10:58 Dose: 40 mg Rifaximin (Xifaxan) 550 mg PO BID [facility] Senna/Docusate Sodium (Senokot S 50 Mg-8.6 Mg) 1 tab PO BID [facility] Last Admin: 09/11/17 10:58 Dose: 1 tab - Labs Labs: 09/11/17 02:54 09/11/17 02:54 - Constitutional Appears: Well - Head Exam Head Exam: ATRAUMATIC, NORMAL INSPECTION, NORMOCEPHALIC - Eye Exam Eye Exam: EOMI, Normal appearance, PERRL Pupil Exam: NORMAL ACCOMODATION, PERRL - ENT Exam ENT Exam: Mucous Membranes Moist, Normal Exam - Neck Exam Neck Exam: Full ROM, Normal Inspection. absent: Lymphadenopathy - Respiratory Exam Respiratory Exam: Decreased Breath Sounds - Cardiovascular Exam Cardiovascular Exam: REGULAR RHYTHM, +S1, +S2 - GI/Abdominal Exam GI & Abdominal Exam: Soft, Diminished Bowel Sounds - Rectal Exam Rectal Exam: Deferred
[2017-09-11] MEDS: Dextrose 5%/0.45% NS 1,000 ML IV SCH (14:20)
[2017-09-11 16:32] LABS: PLATELET COUNT 88 K/uL (130-400)
[2017-09-11 16:48] LABS: INR 2.5
[2017-09-11 16:54] LABS: PROTHROMBIN TIME 29.3 SECONDS (9.7-12.2)
[2017-09-11 17:06] LABS: FREE T4 1.48 ng/dL (0.78-2.19); PROLACTIN 7.8 ng/mL (3.0-18.9)
[2017-09-11] MEDS: Sodium Chloride 0.9% 1,000 ML IV SCH (17:44)
[2017-09-11] MEDS: Magnesium Hydroxide Susp 30 ml UD PO SCH (22:00)
--- NOTE | 2017-09-12 01:18 | CON ---
DATE: 09/11/2017 ATTENDING PHYSICIAN: Joyce Wilson MD ROOM#: 352, bed B. REASON FOR CONSULTATION: Change in mental status. CHIEF COMPLAINT: The patient was admitted with a history of GI discomfort manifesting with abdominal pain, decreased appetite and diarrhea, with generalized weakness. During the hospitalization, the patient was found to have change in mental status. From neurological point of view, I was called in to evaluate her for further management. HISTORY OF PRESENT ILLNESS: Ms. Ty Menendez is a 57-year-old right-handed -[place] thinly built female, presenting with a change in mental status during her hospitalization. No history of fall, no history of trauma, no history of involuntary movements being witnessed or documented. No similar episodes did happen in the past. PAST MEDICAL HISTORY: Significant for metastatic breast cancer, being diagnosed in 2013, status post chemotherapy and followed by hormonal therapy at present. PERSONAL HISTORY: She still smokes 10 cigarettes per day. No history of alcohol use. ALLERGIES: NO KNOWN ALLERGIES. REVIEW OF SYSTEMS: A 12-point systems being reviewed; from neuro, change in mental status. MEDICATIONS: Ativan, Colace, IV fluids, Amylase, Protonix, Milk of Magnesia, rifampin. PHYSICAL EXAMINATION: VITAL SIGNS: Blood pressure 133/87, mean artery pressure of 102, respiratory rate 16, temperature 98 degrees Fahrenheit, pulse rate 89 and regular. GENERAL: The patient is verbally nonresponsive. Eyes are open. Mouth spontaneously, left more than her right side. NECK: Supple. No meningismus. HEART: Heart sounds, tachycardia. EXTREMITIES: Increased tone on her right, more than her left side. NEUROLOGIC: Mental status examination, patient is verbally mute. Cranial nerve examination, not responds to visual threat, purposeful eyes opening and closing. Pupils reactive to light, rolling conjugate gaze noted. No lateral gaze, nystagmus. No primary gaze lateralization. No facial sensory deficit. No facial asymmetry. Hearing seems to be intact. Motor Examination: As stated above, moves the left more than her right side. Deep vein reflexes are absent. Plantars are upgoing on both sides. Sensory: Responds to pain, left more than her right side. Responds to pain symmetrically on her left more than her right side. Coordination and gait deferred at this time. WORKUP: 1. CT of the head reviewed by me, both the CAT scan shows multiple hyperlucent area. At one area, hypertensive area also noted. Considering the history of metastatic and breast cancers, the patient should have MRA of the brain to rule out metastatic process versus ischemic process. 2. The patient's change in mental status could be all related to either it could be ischemic process, or metastatic process versus Owen's paralysis continue as postictal phenomenon. 3. The patient should have been worked for metabolic rearrangement versus toxic encephalopathy, secondary to her abnormal liver function CHECK AMMONIA . RECOMMENDATIONS: 1. The patient should have MRI of the brain with and without gadolinium to rule out metastatic process or ischemic process. 2. Electroencephalogram. 3. Fall precaution. 4. Blood workup as per the order. 5. The patient should be not to be on getting sedatives. 6. The patient's condition had been discussed with the nurse. The patient will follow closely with you. Mo Doan MD MTDD
[2017-09-12] MEDS: Dextrose 5%/0.45% NS 1,000 ML IV SCH ×3 (01:45→14:15)
[2017-09-12 07:26] LABS: BASO # 0.1 K/uL (0.0-0.2); BASO % 1.8 % (0.0-2.0); EOS % 0.1 % (0.0-4.0); HEMOGLOBIN 9.7 g/dL (11.0-16.0); LYMPH # 0.9 K/uL (1.0-4.3); MEAN CELL VOLUME 90.9 fL (81.0-99.0); MEAN CORPUSCULAR HEMOGLOBIN 31.5 pg (27.0-31.0); MEAN CORPUSCULAR HGB CONC 34.6 g/dL (33.0-37.0); MEAN PLATELET VOLUME 8.8 fL (7.2-11.7); MONO # 0.1 K/uL (0.0-0.8); MONO % 2.2 % (0.0-10.0); NEUT # 5.3 K/uL (1.8-7.0); NEUT % 81.9 % (50.0-75.0); NRBC % 0.1 % (0.0-2.0); RBC 3.07 Mil/uL (3.80-5.20); WHITE BLOOD COUNT 6.5 K/uL (4.8-10.8)
[2017-09-12 07:46] LABS: ALB/GLOB RATIO 0.6 (1.0-2.1); ALBUMIN 2.3 g/dL (3.5-5.0); ALT/SGPT 204 U/L (9-52); AST/SGOT 645 U/L (14-36); BLOOD UREA NITROGEN 29 mg/dL (7-17); CALCIUM 7.3 mg/dl (8.6-10.4); GFR AFRICAN-AMERICAN > 60; GFR NON-AFRICAN AMERICAN > 60
--- NOTE | 2017-09-12 08:12 | CP.PCM.PN ---
<CorysureshDomingo - Last Filed: 09/12/17 10:50> Subjective - Date & Time of Evaluation Date of Evaluation: 09/12/17 Time of Evaluation: 06:50 - Subjective Subjective: PGY5 GI Fellow Progress Note Patient seen and examined bedside this morning. The patient opens her eyes but does not track with any meaningful sense. She is not responding to any questions or following any commands. As she is in the position and will not readjust for examination, my exam is limited. Did have large BM following lactulose enema administration. 12 system ROS cannot be completed given AMS. Objective - Vital Signs/Intake and Output Vital Signs (last 24 hours): Temp Pulse Resp BP Pulse Ox 98.3 F 100 H 20 131/76 97 09/12/17 06:00 09/12/17 06:00 09/12/17 06:00 09/12/17 06:00 09/12/17 06:00 Intake and Output: 09/12/17 09/12/17 06:59 18:59 Intake Total 1630 Output Total 2 Balance 1628 - Medications Medications: Current Medications Docusate Sodium (Colace) 100 mg PO BID [facility] Last Admin: 09/11/17 18:28 Dose: Not Given Dextrose/Sodium Chloride (Dextrose 5%/0.45% Ns 1000 Ml) 1,000 mls @ 80 mls/hr IV .[id number] [facility] Last Admin: 09/12/17 05:25 Dose: 80 mls/hr Lactulose (Enulose) 200 gm NV Q1H [facility] Stop: 09/12/17 12:16 Lorazepam (Ativan) 1 mg IVP ONCE ONE Stop: 09/12/17 15:01 Magnesium Hydroxide (Milk Of Magnesia) 30 ml PO HS [facility] Last Admin: 09/11/17 22:00 Dose: Not Given Pantoprazole Sodium (Protonix Inj) 40 mg IVP DAILY [facility] Last Admin: 09/11/17 10:58 Dose: 40 mg Rifaximin (Xifaxan) 550 mg PO BID [facility] Last Admin: 09/11/17 18:30 Dose: Not Given Senna/Docusate Sodium (Senokot S 50 Mg-8.6 Mg) 1 tab PO BID [facility] Last Admin: 09/11/17 18:30 Dose: Not Given - Labs Labs: 09/12/17 07:23 09/12/17 07:06 PT 29.3 SECONDS (9.7-12.2) H 09/11/17 16:28 INR 2.5 09/11/17 16:28 APTT 36 SECONDS (21-34) H 09/11/17 16:28 - Constitutional Appears: Agitated, Confused, Chronically Ill - Eye Exam Eye Exam: PERRL - ENT Exam ENT Exam: Mucous Membranes Dry - Respiratory Exam Respiratory Exam: Clear to Ausculation Bilateral. absent: Rales, Rhonchi, Wheezes - Cardiovascular Exam Cardiovascular Exam: Tachycardia, REGULAR RHYTHM, +S1, +S2 - GI/Abdominal Exam GI & Abdominal Exam: Firm, Normal Bowel Sounds. absent: Distended, Guarding, Rigid, Soft, Tenderness, Organomegaly Additional comments: surgical scarring noted on abdomen, though no history noted - Extremities Exam Extremities Exam: Normal Inspection. absent: Pedal Edema - Neurological Exam Neurological Exam: Altered - Skin Skin Exam: Dry, Warm Assessment and Plan - Assessment and Plan (Free Text) Assessment: Patient is a 57yo female with PMHx significant for metastatic breast cancer to liver/bone who presented to the hospital with abdominal pain, generalized malaise, jaundice and developed altered mentation. -Altered mental status -Breast cancer with metastases to liver/bone -Jaundice 2/2 declining intrinsic liver function as a complication of liver metastases Plan: -Worsening liver function in setting of advanced metastatic disease -Continue Rifaxamin 550mg PO BID if patient can tolerate PO -Lactulose 200g NV Q1H until patient has 2-3 BM, then change to BID -Neurologic work up ongoing - CT head noted, MRI brain and EEG ordered -Recommend NPO given patient mentation -Consider placement of NGT and tube feeding for now -Supportive care and discussions on goals of care to be decided <Alex Rey - Last Filed: 09/12/17 17:06> Objective - Vital Signs/Intake and Output Vital Signs (last 24 hours): Temp Pulse Resp BP Pulse Ox 98.8 F 128 H 20 138/85 95 09/12/17 15:34 09/12/17 15:34 09/12/17 15:34 09/12/17 15:34 09/12/17 15:34 Intake and Output: 09/12/17 09/12/17 06:59 18:59 Intake Total 1630 Output Total 2 Balance 1628 - Medications Medications: Current Medications Docusate Sodium (Colace) 100 mg PO BID [facility] Last Admin: 09/12/17 09:26 Dose: Not Given Dextrose/Sodium Chloride (Dextrose 5%/0.45% Ns 1000 Ml) 1,000 mls @ 80 mls/hr IV .[id number] [facility] Last Admin: 09/12/17 14:15 Dose: 80 mls/hr Lactulose (Enulose) 200 gm NV BID [facility] Stop: 09/14/17 18:01 Pantoprazole Sodium (Protonix Inj) 40 mg IVP DAILY [facility] Last Admin: 09/12/17 09:27 Dose: 40 mg Rifaximin (Xifaxan) 550 mg PO BID [facility] Last Admin: 09/12/17 09:28 Dose: Not Given Senna/Docusate Sodium (Senokot S 50 Mg-8.6 Mg) 1 tab PO BID [facility] Last Admin: 09/12/17 09:27 Dose: Not Given - Labs Labs: 09/12/17 07:23 09/12/17 07:06 PT 29.3 SECONDS (9.7-12.2) H 09/11/17 16:28 INR 2.5 09/11/17 16:28 APTT 36 SECONDS (21-34) H 09/11/17 16:28 Attending/Attestation - Attestation I have personally seen and examined this patient.: Yes I have fully participated in the care of the patient.: Yes I have reviewed all pertinent clinical information, including history, physical exam and plan: Yes Notes (Text): 09/12/17 17:04 Patient seen at bedside with family present. In a nutshell this is a 57 yo female with PMHx significant for metastatic breast cancer to liver/bone who presented to the hospital with abdominal pain, generalized malaise, jaundice and developed altered mentation. On lactulose for advanced disease to liver although this is unlikely HE. Recommend NPO and NGT placement for feeding. Goals of care discussions with the family. Neurologic work up ongoing - CT head noted, MRI brain and EEG ordered. Supportive care
[2017-09-12] MEDS: Docusate-Senna 50 mg-8.6 mg Tab PO SCH ×2 (09:27→17:58)
--- NOTE | 2017-09-12 11:42 | PN ---
DATE: 09/12/2017 TIME OF EVALUATION: 06:05 a.m. NEUROLOGICAL PROBLEM: Toxic and superimposed metabolic encephalopathy versus metastatic process. PHYSICAL EXAMINATION: VITAL SIGNS: Blood pressure 135/83, mean arterial pressure 100, respiratory rate 16, temperature afebrile. NEUROLOGIC: The patient is lethargic. Eyes are partially opened. Moves all 4 extremities purposefully. Verbally mute. Tone is increased in all 4 extremities. Deep tendon reflexes are absent. Plantars are equivocal in response. WORKUP: Ammonia level was 102. The patient was given lactulose. The patient did bowel movement twice.Her blood workup shows WBC 9.8, hemoglobin 10.1, hematocrit 30.0, platelets 88. PT 29.3, PTT 36 with the INR 2.05. Her C-reactive protein is 15, phosphorus 22.3, magnesium 2.3, calcium 7.3. RECOMMENDATIONS: 1. Continue lactulose to bring down ammonia level. 2. Electroencephalogram to rule out triphasic waves with seizure activities. 3. MRI of the brain if stable to rule out metastatic process. 4. The patient will be followed by wire tinner due to control of her ammonia level. 5. The patient will be followed from neurologic point of view. Mo Doan MD MTDD
--- NOTE | 2017-09-12 12:51 | CP.PCM.CON ---
History of Present Illness - History of Present Illness History of Present Illness: Palliative consultation requested by Jason LY for goals of care discussion due to poor prognosis Patient is 57 years old female sent to the hospital from doctor's office with intermittent dizziness, headache, abdominal distention, vomiting, and poor appetite. In ED patient was found to be with ammonia level of 102, total bili oh beats 6.4, ESR 33, platelets a the, hemoglobin 9.7, and white blood count 6.5. CAT scan abdomen/pelvis was significant for liver cirrhosis and diffuse osseus mets. Past medical history, metastatic breast cancer diagnosed 2013, status post left mastectomy, status post chemotherapy, hormonal therapy Social history, lives alone, no children, 3 sisters, nieces and a diffuse, light smoker, smokes 10 cigarettes a day Family history, parents , father from lung cancer Review of Systems - Review of Systems All systems: reviewed and no additional remarkable complaints except Review of Systems: Review of systems obtained from nursing. Nursing patient remained lethargic, unable to take by mouth fluids/food, incontinent of bowel and bladder, sleeps most of the time. Past Patient History - Past Medical History & Family History Past Medical History?: Yes - Past Social History Smoking Status: Light Smoker < 10 Cigarettes Daily - CARDIAC Hx Hypertension: Yes - PULMONARY Hx Respiratory Disorders: No - NEUROLOGICAL HX Cerebrovascular Accident: Yes - HEENT Hx HEENT Problems: No - RENAL Hx Chronic Kidney Disease: No - ENDOCRINE/METABOLIC Hx Endocrine Disorders: No - HEMATOLOGICAL/ONCOLOGICAL Hx Blood Disorders: Yes Hx Blood Transfusions: Yes Hx Blood Transfusion Reaction: No Hx Cancer: Yes (BREAST LEFT) Hx Chemotherapy: Yes Hx Metastesis: Yes (LIVER) - INTEGUMENTARY Hx Dermatological Problems: Yes Other/Comment: SCARS FROM ANN IN CHILDHOOD/ABDOMEN - MUSCULOSKELETAL/RHEUMATOLOGICAL Hx Falls: No - GASTROINTESTINAL Hx Bowel Surgery: Yes Hx Colostomy: Yes (reversed) Hx Gastritis: Yes - GENITOURINARY/GYNECOLOGICAL Hx Genitourinary Disorders: Yes Hx Reproductive Disorders: Yes - PSYCHIATRIC Hx Substance Use: No - SURGICAL HISTORY Hx Surgeries: Yes Hx Hysterectomy: Yes Hx Mastectomy: Yes (LEFT) Other/Comment: liver biopsy. portacath insertion 07/2015 - ANESTHESIA Hx Anesthesia: Yes Hx Anesthesia Reactions: No Hx Malignant Hyperthermia: No Meds Allergies/Adverse Reactions: Allergies Allergy/AdvReac Type Severity Reaction Status Date / Time No Known Allergies Allergy Verified 08/15/15 09:57 - Medications Medications: Current Medications Docusate Sodium (Colace) 100 mg PO BID [facility] Last Admin: 09/12/17 09:26 Dose: Not Given Dextrose/Sodium Chloride (Dextrose 5%/0.45% Ns 1000 Ml) 1,000 mls @ 80 mls/hr IV .[id number] [facility] Last Admin: 09/12/17 05:25 Dose: 80 mls/hr Lactulose (Enulose) 200 gm RI Q1H [facility] Stop: 09/12/17 14:01 Lorazepam (Ativan) 1 mg IVP ONCE ONE Stop: 09/12/17 15:01 Pantoprazole Sodium (Protonix Inj) 40 mg IVP DAILY [facility] Last Admin: 09/12/17 09:27 Dose: 40 mg Rifaximin (Xifaxan) 550 mg PO BID [facility] Last Admin: 09/12/17 09:28 Dose: Not Given Senna/Docusate Sodium (Senokot S 50 Mg-8.6 Mg) 1 tab PO BID [facility] Last Admin: 09/12/17 09:27 Dose: Not Given Physical Exam - Constitutional Appears: Chronically Ill - Head Exam Head Exam: ATRAUMATIC, NORMAL INSPECTION, NORMOCEPHALIC - Eye Exam Eye Exam: EOMI, Normal appearance, PERRL Pupil Exam: NORMAL ACCOMODATION, PERRL - ENT Exam ENT Exam: Mucous Membranes Dry - Neck Exam Neck exam: Positive for: Normal Inspection - Respiratory Exam Respiratory Exam: Decreased Breath Sounds, NORMAL BREATHING PATTERN - Cardiovascular Exam Cardiovascular Exam: Tachycardia, REGULAR RHYTHM - GI/Abdominal Exam GI & Abdominal Exam: Distended, Firm Additional comments: On lactulose, incontinent of bowel - Rectal Exam Rectal Exam: Deferred - Extremities Exam Extremities exam: Positive for: pedal edema - Back Exam Back exam: NORMAL INSPECTION - Neurological Exam Neurological exam: Altered Additional comments: Lethargic, doesn't interact, doesn't answer questions - Psychiatric Exam Psychiatric exam: Depressed, Flat Affect - Skin Skin Exam: Dry, Intact, Normal Color, Warm Results - Vital Signs Recent Vital Signs: Last Vital Signs Temp 98.3 F 09/12/17 08:00 Pulse 115 H 09/12/17 08:00 Resp 20 09/12/17 08:00 BP 132/75 09/12/17 08:00 Pulse Ox 95 09/12/17 08:00 - Labs Result Diagrams: 09/12/17 07:23 09/12/17 07:06 Labs: Laboratory Results - last 24 hr 09/11/17 09/11/17 09/11/17 16:28 16:28 16:28 WBC RBC Hgb Hct MCV MCH MCHC RDW Plt Count MPV Neut % (Auto) Lymph % (Auto) [place] % (Auto) Eos % (Auto) Baso % (Auto) Neut # (Auto) Lymph # (Auto) [place] # (Auto) Eos # (Auto) Baso # (Auto) ESR PT INR APTT Sodium Potassium Chloride Carbon Dioxide Anion Gap BUN Creatinine Est GFR ( Amer) Est GFR (Non-Af Amer) Random Glucose Calcium Phosphorus 2.3 L Magnesium 2.3 Total Bilirubin AST ALT Alkaline Phosphatase Ammonia 102 H C-React Prot High Sens Total Protein Albumin Globulin Albumin/Globulin Ratio Procalcitonin 5.52 H Free T4 TSH 3rd Generation Prolactin 7.8 09/11/17 09/11/17 09/11/17 16:28 16:28 16:28 WBC RBC Hgb Hct MCV MCH MCHC RDW Plt Count 88 L MPV Neut % (Auto) Lymph % (Auto) [place] % (Auto) Eos % (Auto) Baso % (Auto) Neut # (Auto) Lymph # (Auto) [place] # (Auto) Eos # (Auto) Baso # (Auto) ESR 33 H PT 29.3 H INR 2.5 APTT 36 H Sodium Potassium Chloride Carbon Dioxide Anion Gap BUN Creatinine Est GFR ( Amer) Est GFR (Non-Af Amer) Random Glucose Calcium Phosphorus Magnesium Total Bilirubin AST ALT Alkaline Phosphatase Ammonia C-React Prot High Sens > 15.00 H Total Protein Albumin Globulin Albumin/Globulin Ratio Procalcitonin Free T4 1.48 TSH 3rd Generation 0.31 L Prolactin 09/12/17 09/12/17 09/12/17 07:06 07:06 07:23 WBC 6.5 RBC 3.07 L Hgb 9.7 L Hct 27.9 L MCV 90.9 MCH 31.5 H MCHC 34.6 RDW 15.0 H Plt Count 80 L MPV 8.8 Neut % (Auto) 81.9 H Lymph % (Auto) 14.0 L [place] % (Auto) 2.2 Eos % (Auto) 0.1 Baso % (Auto) 1.8 Neut # (Auto) 5.3 Lymph # (Auto) 0.9 L [place] # (Auto) 0.1 Eos # (Auto) 0.0 Baso # (Auto) 0.1 ESR PT INR APTT Sodium 141 Potassium 3.4 L Chloride 109 H Carbon Dioxide 28 Anion Gap 9 L BUN 29 H Creatinine 0.8 Est GFR ( Amer) > 60 Est GFR (Non-Af Amer) > 60 Random Glucose 162 H Calcium 7.3 L Phosphorus Magnesium Total Bilirubin 6.4 H AST 645 H ALT 204 H Alkaline Phosphatase 160 H Ammonia 81 H D C-React Prot High Sens Total Protein 6.2 L Albumin 2.3 L Globulin 3.9 Albumin/Globulin Ratio 0.6 L Procalcitonin Free T4 TSH 3rd Generation Prolactin Assessment & Plan - Assessment and Plan (Free Text) Assessment: Palliative consult There is no advanced directive on chart, PPS 10% I reviewed medical records, all diagnostic studies, examining patient in the bed , and failed family meeting for gallstones Discussion Patient seen and examined in bed, alert, lethargic, keeps eyes closed, doesn't interact, doesn't obey simple commands, doesn't answer short questions. Per nursing patient has been sleeping most of the time and remains lethargic. Blood sounds diminished, breathing shallow. Status post left mastectomy. Heart in sinus tach, 115. Abdomen is highly distended, decreased bowel sounds, patient did not react to pain when abdomen examined. There is a mild edema to lower extremities. Patient is able to freely move upper and lower extremities. Family meeting shouts attended patient's 3 sisters and one niece. I reviewed patient's clinical presentation and related those findings to do patient's main diagnosis of cancer. Family stated being fully aware of patient's very complex diagnosis. The oldest sister Ms. Bautista said that she has seen patient fighting the cancer for the last 4 years and she believes patient just became to seek to do so any longer. I elicited that the expectations of care. The family is concerned with patient' s comfort and nutrition. I reassured the family that the patient had not shown signs of pain. Risk of aspiration due to lethargy discussed with the family. Family stated understanding. All 3 sisters were very interested in IV hydration in the wanted patient to be given fluids through the IVs. Goals for end-of-life care discussed. I discussed the poor prognosis and the issues related to quality of life for this patient. Family agreed, but believes without IV hydration patient will be starved to . Family would like all all deny any measures to be continued to promote patient's comfort. They are aware that the is most likely imminent, and refer patient is being treated conservatively until the end. I offered information about hospice care. Family agreed that it would be most likely their final decision . As patient believes along at home, family would like patient to be transferred to the long term. They are not able to provide support at home. Family would like Dr. Juanita Wilson continue to follow the patient at the long term. Code status discussed. Also introduced. Family chose DNR DNI. This was sat with Jese LY. Impression * Chronically ill patient * Lethargy * Poor nutrition * Incontinence due to altered mental status secondary to elevated ammonia * Patient has no capacity of decision making, patient's 3 sisters are advocating for patient * Family chose DNR DNI * Family prefers transfer to the long term as there is no support at home for the patient Suggestions * Promote safety, continue her lactulose by mouth * Would keep patient nothing by mouth while lethargic * IV hydration * Promote skin integrity * Check ammonia level with tomorrow's blood * I agree with DNR/DNI computing services director and rn case manager hospice to the discuss with the family possibility for long term placement. Family wants to talk to Doctor juanita Wilson before decion on hospice made.
--- NOTE | 2017-09-12 13:19 | CP.PCM.PN ---
Subjective - Date & Time of Evaluation Date of Evaluation: 09/12/17 Time of Evaluation: 13:15 - Subjective Subjective: PROGRESS NOTE. Attending: BING FUNG Pt seen and examined at bedside. No acute distress. ROS unobtainable due to pt' s mental status. sister present. Palliative consult pending. Objective - Vital Signs/Intake and Output Vital Signs (last 24 hours): Temp Pulse Resp BP Pulse Ox 98.3 F 115 H 20 132/75 95 09/12/17 08:00 09/12/17 08:00 09/12/17 08:00 09/12/17 08:00 09/12/17 08:00 Intake and Output: 09/12/17 09/12/17 06:59 18:59 Intake Total 1630 Output Total 2 Balance 1628 - Medications Medications: Current Medications Docusate Sodium (Colace) 100 mg PO BID [facility] Last Admin: 09/12/17 09:26 Dose: Not Given Dextrose/Sodium Chloride (Dextrose 5%/0.45% Ns 1000 Ml) 1,000 mls @ 80 mls/hr IV .[id number] [facility] Last Admin: 09/12/17 05:25 Dose: 80 mls/hr Lactulose (Enulose) 200 gm [place] BID [facility] Stop: 09/14/17 18:01 Lorazepam (Ativan) 1 mg IVP ONCE ONE Stop: 09/12/17 15:01 Pantoprazole Sodium (Protonix Inj) 40 mg IVP DAILY [facility] Last Admin: 09/12/17 09:27 Dose: 40 mg Rifaximin (Xifaxan) 550 mg PO BID [facility] Last Admin: 09/12/17 09:28 Dose: Not Given Senna/Docusate Sodium (Senokot S 50 Mg-8.6 Mg) 1 tab PO BID [facility] Last Admin: 09/12/17 09:27 Dose: Not Given - Labs Labs: 09/12/17 07:23 09/12/17 07:06 PT 29.3 SECONDS (9.7-12.2) H 09/11/17 16:28 INR 2.5 09/11/17 16:28 APTT 36 SECONDS (21-34) H 09/11/17 16:28 - Constitutional Appears: Non-toxic, No Acute Distress, Chronically Ill - Head Exam Head Exam: ATRAUMATIC, NORMAL INSPECTION, NORMOCEPHALIC - Eye Exam Eye Exam: EOMI - ENT Exam ENT Exam: Mucous Membranes Moist - Neck Exam Neck Exam: Full ROM, Normal Inspection - Respiratory Exam Respiratory Exam: absent: Respiratory Distress - Cardiovascular Exam Cardiovascular Exam: +S1, +S2 - GI/Abdominal Exam GI & Abdominal Exam: Soft, Normal Bowel Sounds. absent: Tenderness - Extremities Exam Extremities Exam: Full ROM, Normal Inspection - Neurological Exam Neurological Exam: Altered - Psychiatric Exam Additional comments: unable to assess- AMS - Skin Skin Exam: Dry, Intact, Normal Color, Warm Assessment and Plan - Assessment and Plan (Free Text) Assessment: This is a 57 yo female with 1. Metastatic breast cancer -pt has altered mental status -head CT negative -MRI pending -EEG pending -neurology consult. recs appreciated. -heme/onc consult. recs appreciated. -continue D5 1/2 NS -urine culture negative -NPO secondary to altered mentation 2. Encephalopathy -GI consult. recs appreciated. -continue lactulose -continue rifaximin -continue milk of mag 3. GI/DVT ppx -continue protonix -continue scds -palliative care consult discussed with DR FUNG
--- NOTE | 2017-09-12 17:07 | CP.PCM.PN ---
Subjective - Date & Time of Evaluation Date of Evaluation: 09/12/17 Time of Evaluation: 08:40 - Subjective Subjective: clinically same Objective - Vital Signs/Intake and Output Vital Signs (last 24 hours): Temp Pulse Resp BP Pulse Ox 98.8 F 128 H 20 138/85 95 09/12/17 15:34 09/12/17 15:34 09/12/17 15:34 09/12/17 15:34 09/12/17 15:34 Intake and Output: 09/12/17 09/12/17 06:59 18:59 Intake Total 1630 Output Total 2 Balance 1628 - Medications Medications: Current Medications Docusate Sodium (Colace) 100 mg PO BID [facility] Last Admin: 09/12/17 09:26 Dose: Not Given Dextrose/Sodium Chloride (Dextrose 5%/0.45% Ns 1000 Ml) 1,000 mls @ 80 mls/hr IV .[id number] [facility] Last Admin: 09/12/17 14:15 Dose: 80 mls/hr Lactulose (Enulose) 200 gm [place] BID [facility] Stop: 09/14/17 18:01 Pantoprazole Sodium (Protonix Inj) 40 mg IVP DAILY [facility] Last Admin: 09/12/17 09:27 Dose: 40 mg Rifaximin (Xifaxan) 550 mg PO BID [facility] Last Admin: 09/12/17 09:28 Dose: Not Given Senna/Docusate Sodium (Senokot S 50 Mg-8.6 Mg) 1 tab PO BID [facility] Last Admin: 09/12/17 09:27 Dose: Not Given - Labs Labs: 09/12/17 07:23 09/12/17 07:06 PT 29.3 SECONDS (9.7-12.2) H 09/11/17 16:28 INR 2.5 09/11/17 16:28 APTT 36 SECONDS (21-34) H 09/11/17 16:28 - Constitutional Appears: Well - Head Exam Head Exam: ATRAUMATIC, NORMAL INSPECTION, NORMOCEPHALIC - Eye Exam Eye Exam: EOMI, Normal appearance, PERRL Pupil Exam: NORMAL ACCOMODATION, PERRL - ENT Exam ENT Exam: Mucous Membranes Moist, Normal Exam - Neck Exam Neck Exam: Full ROM, Normal Inspection. absent: Lymphadenopathy - Respiratory Exam Respiratory Exam: Decreased Breath Sounds - Cardiovascular Exam Cardiovascular Exam: REGULAR RHYTHM, +S1, +S2 - GI/Abdominal Exam GI & Abdominal Exam: Soft, Diminished Bowel Sounds - Rectal Exam Rectal Exam: Deferred
[2017-09-13] MEDS: Dextrose 5%/0.45% NS 1,000 ML IV SCH ×3 (02:45→15:46)
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
[2017-09-13 07:52] LABS: BASO % 0.8 % (0.0-2.0); EOS % 0.2 % (0.0-4.0); HEMOGLOBIN 9.4 g/dL (11.0-16.0); LYMPH # 1.3 K/uL (1.0-4.3); LYMPH % 36.2 % (20.0-40.0); MEAN CELL VOLUME 90.7 fL (81.0-99.0); MEAN CORPUSCULAR HEMOGLOBIN 31.1 pg (27.0-31.0); MEAN CORPUSCULAR HGB CONC 34.2 g/dL (33.0-37.0); MEAN PLATELET VOLUME 9.8 fL (7.2-11.7); MONO # 0.4 K/uL (0.0-0.8); NEUT # 1.9 K/uL (1.8-7.0); NEUT % 52.8 % (50.0-75.0); NRBC % 0.6 % (0.0-2.0); RBC 3.03 Mil/uL (3.80-5.20); RED CELL DISTRIBUTION WIDTH 14.8 % (11.5-14.5); WHITE BLOOD COUNT 3.6 K/uL (4.8-10.8)
[2017-09-13 08:21] LABS: ALB/GLOB RATIO 0.6 (1.0-2.1); ALBUMIN 2.2 g/dL (3.5-5.0); ALT/SGPT 205 U/L (9-52); AST/SGOT 640 U/L (14-36); BLOOD UREA NITROGEN 23 mg/dL (7-17); CALCIUM 7.3 mg/dl (8.6-10.4); GFR AFRICAN-AMERICAN > 60; GFR NON-AFRICAN AMERICAN > 60
--- NOTE | 2017-09-13 09:23 | CP.PCM.PN ---
Subjective - Date & Time of Evaluation Date of Evaluation: 09/13/17 Time of Evaluation: 09:20 - Subjective Subjective: Progress note. ATTENDING: BING FUNG MD Pt seen and examined at bedside. Pt is not verbal. ROS is unobtainable. May transition to hospice care depending on family wishes. GI, neuro, cardio following. Objective - Vital Signs/Intake and Output Vital Signs (last 24 hours): Temp Pulse Resp BP Pulse Ox 98.7 F 110 H 20 124/77 97 09/13/17 08:37 09/13/17 08:37 09/13/17 08:37 09/13/17 08:37 09/13/17 08:37 Intake and Output: 09/13/17 09/13/17 06:59 18:59 Intake Total 1280 Balance 1280 - Medications Medications: Current Medications Docusate Sodium (Colace) 100 mg PO BID [facility] Last Admin: 09/12/17 17:58 Dose: Not Given Dextrose/Sodium Chloride (Dextrose 5%/0.45% Ns 1000 Ml) 1,000 mls @ 80 mls/hr IV .[id number] [facility] Last Admin: 09/13/17 05:37 Dose: 80 mls/hr Lactulose (Enulose) 200 gm [place] BID [facility] Stop: 09/14/17 18:01 Last Admin: 09/12/17 19:49 Dose: 200 gm Pantoprazole Sodium (Protonix Inj) 40 mg IVP DAILY [facility] Last Admin: 09/12/17 09:27 Dose: 40 mg Rifaximin (Xifaxan) 550 mg PO BID [facility] Last Admin: 09/12/17 17:58 Dose: Not Given Senna/Docusate Sodium (Senokot S 50 Mg-8.6 Mg) 1 tab PO BID [facility] Last Admin: 09/12/17 17:58 Dose: Not Given - Labs Labs: 09/13/17 07:16 09/13/17 08:07 PT 29.3 SECONDS (9.7-12.2) H 09/11/17 16:28 INR 2.5 09/11/17 16:28 APTT 36 SECONDS (21-34) H 09/11/17 16:28 - Constitutional Appears: Chronically Ill - Head Exam Head Exam: ATRAUMATIC, NORMAL INSPECTION, NORMOCEPHALIC - ENT Exam ENT Exam: Mucous Membranes Dry - Neck Exam Neck Exam: Full ROM, Normal Inspection - Respiratory Exam Respiratory Exam: absent: Respiratory Distress - Cardiovascular Exam Cardiovascular Exam: Tachycardia, +S1, +S2 - GI/Abdominal Exam GI & Abdominal Exam: Soft, Normal Bowel Sounds. absent: Tenderness - Extremities Exam Extremities Exam: Full ROM, Normal Inspection - Neurological Exam Neurological Exam: Altered. absent: Alert, Normal Gait, Oriented x3 - Psychiatric Exam Additional comments: Unable to assess - Skin Skin Exam: Dry, Intact, Normal Color, Warm Assessment and Plan - Assessment and Plan (Free Text) Assessment: This is a 57 yo female with 1. Metastatic breast cancer -pt has altered mental status -may be mets to brain -initial head CT negative -repeat head CT on 09/11 shows non specific white matter changes -MRI pending -EEG pending -neurology consult. recs appreciated. -heme/onc consult. recs appreciated. -continue D5 07/26 NS -urine culture negative -NPO secondary to altered mentation 2. Encephalopathy- metabolic vs toxic -MRI pending -EEG pending -r/o non convulsive seizure -seizure precautions -fall precautions -GI consult. recs appreciated. -neurology consult. DR RIBERA. recs appreciated. -continue lactulose MD -continue rifaximin -continue milk of mag 3. hyperammonemia -will recheck level again today -continue lactulose -continue rifaximin -GI consult as above. 4. Tachycardia -initial ekg showed sinus tach -pt tachy again this morning -cardiology consult. recs appreciated. DR DIAZ. -will order d dimer 5. Low TSH -TSH low -T4 normal -T3 pending -may be causing/contributing to tachycardia -endocrinology consult. recs appreciated. 5. GI/DVT ppx -continue protonix -continue scds -palliative care consult- pt may transition to hospice care depending on wishes of family discussed with DR FUNG
[2017-09-13] MEDS: Docusate-Senna 50 mg-8.6 mg Tab PO SCH ×2 (09:25→17:52)
--- NOTE | 2017-09-13 11:20 | CP.PCM.CON ---
<Nhi Pino - Last Filed: 09/13/17 13:01> History of Present Illness - History of Present Illness History of Present Illness: Cardiology consult note for Dr. Guthrie: Cardiology was consulted for tachycardia. 57 yo woman with history of metastatic breast cancer, with clinical and radiological evidence of disease progression, presented with abdominal pain, decreased appetite, diarrhea and generalized weakness. Patient is with poor prognosis. The family has been meeting with palliative care discussing hospice care. Patient noted at times to be tachycardic. Patient is non verbal. Unable to obtain ROS. Review of Systems - Review of Systems Systems not reviewed;Unavailable: Acuity of Condition Past Patient History - Past Medical History & Family History Past Medical History?: Yes - Past Social History Smoking Status: Light Smoker < 10 Cigarettes Daily - CARDIAC Hx Hypertension: Yes - PULMONARY Hx Respiratory Disorders: No - NEUROLOGICAL HX Cerebrovascular Accident: Yes - HEENT Hx HEENT Problems: No - RENAL Hx Chronic Kidney Disease: No - ENDOCRINE/METABOLIC Hx Endocrine Disorders: No - HEMATOLOGICAL/ONCOLOGICAL Hx Blood Disorders: Yes Hx Blood Transfusions: Yes Hx Blood Transfusion Reaction: No Hx Cancer: Yes (BREAST LEFT) Hx Chemotherapy: Yes Hx Metastesis: Yes (LIVER) - INTEGUMENTARY Hx Dermatological Problems: Yes Other/Comment: SCARS FROM ANN IN CHILDHOOD/ABDOMEN - MUSCULOSKELETAL/RHEUMATOLOGICAL Hx Falls: No - GASTROINTESTINAL Hx Bowel Surgery: Yes Hx Colostomy: Yes (reversed) Hx Gastritis: Yes - GENITOURINARY/GYNECOLOGICAL Hx Genitourinary Disorders: Yes Hx Reproductive Disorders: Yes - PSYCHIATRIC Hx Substance Use: No - SURGICAL HISTORY Hx Surgeries: Yes Hx Hysterectomy: Yes Hx Mastectomy: Yes (LEFT) Other/Comment: liver biopsy. portacath insertion 07/2015 - ANESTHESIA Hx Anesthesia: Yes Hx Anesthesia Reactions: No Hx Malignant Hyperthermia: No Meds Allergies/Adverse Reactions: Allergies Allergy/AdvReac Type Severity Reaction Status Date / Time No Known Allergies Allergy Verified 08/15/15 09:57 - Medications Medications: Current Medications Docusate Sodium (Colace) 100 mg PO BID [facility] Last Admin: 09/13/17 09:22 Dose: Not Given Dextrose/Sodium Chloride (Dextrose 5%/0.45% Ns 1000 Ml) 1,000 mls @ 80 mls/hr IV .[id number] [facility] Last Admin: 09/13/17 05:37 Dose: 80 mls/hr Lactulose (Enulose) 200 gm [place] BID [facility] Stop: 09/14/17 18:01 Last Admin: 09/13/17 09:25 Dose: 200 gm Pantoprazole Sodium (Protonix Inj) 40 mg IVP DAILY [facility] Last Admin: 09/13/17 09:22 Dose: 40 mg Rifaximin (Xifaxan) 550 mg PO BID [facility] Last Admin: 09/13/17 09:25 Dose: Not Given Senna/Docusate Sodium (Senokot S 50 Mg-8.6 Mg) 1 tab PO BID [facility] Last Admin: 09/13/17 09:25 Dose: Not Given Physical Exam - Constitutional Appears: Chronically Ill - Head Exam Head Exam: ATRAUMATIC, NORMAL INSPECTION - Eye Exam Eye Exam: EOMI - Respiratory Exam Respiratory Exam: Clear to Auscultation Bilateral, NORMAL BREATHING PATTERN. absent: Accessory Muscle Use, Rales, Rhonchi, Wheezes, Respiratory Distress - Cardiovascular Exam Cardiovascular Exam: Tachycardia, REGULAR RHYTHM, +S1, +S2 - GI/Abdominal Exam GI & Abdominal Exam: Normal Bowel Sounds, Soft Results - Vital Signs Recent Vital Signs: Last Vital Signs Temp 98.7 F 09/13/17 08:37 Pulse 110 H 09/13/17 08:37 Resp 20 09/13/17 08:37 BP 124/77 09/13/17 08:37 Pulse Ox 97 09/13/17 08:37 - Labs Result Diagrams: 09/13/17 07:16 09/13/17 08:07 Labs: Laboratory Results - last 24 hr 09/13/17 09/13/17 09/13/17 07:16 08:07 09:53 WBC 3.6 L RBC 3.03 L Hgb 9.4 L Hct 27.5 L MCV 90.7 MCH 31.1 H MCHC 34.2 RDW 14.8 H Plt Count 84 L MPV 9.8 Neut % (Auto) 52.8 Lymph % (Auto) 36.2 [place] % (Auto) 10.0 Eos % (Auto) 0.2 Baso % (Auto) 0.8 Neut # (Auto) 1.9 Lymph # (Auto) 1.3 [place] # (Auto) 0.4 Eos # (Auto) 0.0 Baso # (Auto) 0.0 Sodium 143 Potassium 3.2 L Chloride 111 H Carbon Dioxide 25 Anion Gap 10 BUN 23 H Creatinine 0.8 Est GFR ( Amer) > 60 Est GFR (Non-Af Amer) > 60 Random Glucose 137 H Calcium 7.3 L Total Bilirubin 7.1 H AST 640 H ALT 205 H Alkaline Phosphatase 156 H Ammonia 48 H D Total Protein 5.9 L Albumin 2.2 L Globulin 3.7 Albumin/Globulin Ratio 0.6 L Assessment & Plan - Assessment and Plan (Free Text) Assessment: Tachycardia Suggest DVT prophylaxis Will start Metorpolol 12.5 mg PO BID Patient with poor prognosis given current condition, family is to decide on hospice care Suggest DDimer and/or further imaging to rule out PE if family would like further workup - pt high risk for PE due to cancer Discussed with Dr. Guthrie <Roberto Guthrie - Last Filed: 09/13/17 23:14> Meds - Medications Medications: Current Medications Docusate Sodium (Colace) 100 mg PO BID [facility] Last Admin: 09/13/17 17:52 Dose: Not Given Enoxaparin Sodium (Lovenox) 40 mg [place] DAILY [facility] Last Admin: 09/13/17 13:31 Dose: 40 mg Dextrose/Sodium Chloride (Dextrose 5%/0.45% Ns 1000 Ml) 1,000 mls @ 80 mls/hr IV .[id number] [facility] Last Admin: 09/13/17 15:46 Dose: 80 mls/hr Potassium Chloride (Potassium Chloride 20 Meq/100 Ml) 20 meq in 100 mls @ 50 mls/hr IVPB Q2 [facility] Stop: 09/13/17 23:59 Last Admin: 09/13/17 22:07 Dose: 50 mls/hr Lactulose (Enulose) 200 gm [place] BID [facility] Stop: 09/14/17 18:01 Last Admin: 09/13/17 19:00 Dose: 200 gm Metoprolol Tartrate (Lopressor) 12.5 mg PO BID [facility] Last Admin: 09/13/17 17:52 Dose: Not Given Pantoprazole Sodium (Protonix Inj) 40 mg IVP DAILY [facility] Last Admin: 09/13/17 09:22 Dose: 40 mg Rifaximin (Xifaxan) 550 mg PO BID [facility] Last Admin: 09/13/17 17:52 Dose: Not Given Senna/Docusate Sodium (Senokot S 50 Mg-8.6 Mg) 1 tab PO BID [facility] Last Admin: 09/13/17 17:52 Dose: Not Given Results - Vital Signs Recent Vital Signs: Last Vital Signs Temp 98.5 F 09/13/17 16:14 Pulse 116 H 09/13/17 16:14 Resp 20 09/13/17 16:14 BP 113/72 09/13/17 16:14 Pulse Ox 96 09/13/17 16:14 - Labs Result Diagrams: 09/13/17 07:16 09/13/17 08:07 Labs: Laboratory Results - last 24 hr 09/11/17 09/13/17 09/13/17 16:28 07:16 08:07 WBC 3.6 L RBC 3.03 L Hgb 9.4 L Hct 27.5 L MCV 90.7 MCH 31.1 H MCHC 34.2 RDW 14.8 H Plt Count 84 L MPV 9.8 Neut % (Auto) 52.8 Lymph % (Auto) 36.2 [place] % (Auto) 10.0 Eos % (Auto) 0.2 Baso % (Auto) 0.8 Neut # (Auto) 1.9 Lymph # (Auto) 1.3 [place] # (Auto) 0.4 Eos # (Auto) 0.0 Baso # (Auto) 0.0 D-Dimer, Quantitative Sodium 143 Potassium 3.2 L Chloride 111 H Carbon Dioxide 25 Anion Gap 10 BUN 23 H Creatinine 0.8 Est GFR ( Amer) > 60 Est GFR (Non-Af Amer) > 60 Random Glucose 137 H Calcium 7.3 L Ionized Calcium 4.5 L Total Bilirubin 7.1 H AST 640 H ALT 205 H Alkaline Phosphatase 156 H Ammonia Total Protein 5.9 L Albumin 2.2 L Globulin 3.7 Albumin/Globulin Ratio 0.6 L Total T3 09/13/17 09/13/17 09/13/17 09:53 12:31 12:31 WBC RBC Hgb Hct MCV MCH MCHC RDW Plt Count MPV Neut % (Auto) Lymph % (Auto) [place] % (Auto) Eos % (Auto) Baso % (Auto) Neut # (Auto) Lymph # (Auto) [place] # (Auto) Eos # (Auto) Baso # (Auto) D-Dimer, Quantitative > 5250 H Sodium Potassium Chloride Carbon Dioxide Anion Gap BUN Creatinine Est GFR ( Amer) Est GFR (Non-Af Amer) Random Glucose Calcium Ionized Calcium Total Bilirubin AST ALT Alkaline Phosphatase Ammonia 48 H D Total Protein Albumin Globulin Albumin/Globulin Ratio Total T3 0.843 L Assessment & Plan - Assessment and Plan (Free Text) Plan: Patient seen and evaluated with the medical billing and coding instructor Plan of care as documented
--- NOTE | 2017-09-13 11:48 | PN ---
DATE: 09/13/2017. NEUROLOGIC PROBLEM: Toxic and metabolic encephalopathy with metastatic disease. PHYSICAL EXAMINATION: VITAL SIGNS: Blood pressure 110/72, mean artery pressure of 84, respiratory rate 16, temperature afebrile. NEUROLOGIC: The patient responds to verbally calling her name. She knows she is in the hospital. She moves both upper and lower extremities. Rest of the examination is unchanged. The patient's clinical presentation is somewhat improved. Her ammonia level was somewhat decreased, still it is in high range. The rest of the workup including MRI of the brain and electroencephalogram all still in progress. Continue the present management. Overall prognosis is poor. Mo Doan MD
[2017-09-13] MEDS: Enoxaparin 40 mg Syringe SC SCH (13:31)
[2017-09-13] MEDS ORDERED: Iodixanol 320 MG/ML 100 ML BOTTLE IV ONE (15:49)
--- NOTE | 2017-09-13 16:20 | CP.PCM.PN ---
Subjective - Date & Time of Evaluation Date of Evaluation: 09/13/17 Time of Evaluation: 07:40 - Subjective Subjective: clinically same Objective - Vital Signs/Intake and Output Vital Signs (last 24 hours): Temp Pulse Resp BP Pulse Ox 98.5 F 116 H 20 113/72 96 09/13/17 16:14 09/13/17 16:14 09/13/17 16:14 09/13/17 16:14 09/13/17 16:14 Intake and Output: 09/13/17 09/13/17 06:59 18:59 Intake Total 1280 Balance 1280 - Medications Medications: Current Medications Docusate Sodium (Colace) 100 mg PO BID [facility] Last Admin: 09/13/17 09:22 Dose: Not Given Enoxaparin Sodium (Lovenox) 40 mg [place] DAILY [facility] Last Admin: 09/13/17 13:31 Dose: 40 mg Dextrose/Sodium Chloride (Dextrose 5%/0.45% Ns 1000 Ml) 1,000 mls @ 80 mls/hr IV .[id number] [facility] Last Admin: 09/13/17 15:46 Dose: 80 mls/hr Potassium Chloride (Potassium Chloride 20 Meq/100 Ml) 20 meq in 100 mls @ 50 mls/hr IVPB ONCE ONE Stop: 09/13/17 16:20 Last Admin: 09/13/17 14:42 Dose: 50 mls/hr Lactulose (Enulose) 200 gm [place] BID [facility] Stop: 09/14/17 18:01 Last Admin: 09/13/17 09:25 Dose: 200 gm Metoprolol Tartrate (Lopressor) 12.5 mg PO BID [facility] Last Admin: 09/13/17 11:33 Dose: Not Given Pantoprazole Sodium (Protonix Inj) 40 mg IVP DAILY [facility] Last Admin: 09/13/17 09:22 Dose: 40 mg Rifaximin (Xifaxan) 550 mg PO BID [facility] Last Admin: 09/13/17 09:25 Dose: Not Given Senna/Docusate Sodium (Senokot S 50 Mg-8.6 Mg) 1 tab PO BID [facility] Last Admin: 09/13/17 09:25 Dose: Not Given - Labs Labs: 09/13/17 07:16 09/13/17 08:07 PT 29.3 SECONDS (9.7-12.2) H 09/11/17 16:28 INR 2.5 09/11/17 16:28 APTT 36 SECONDS (21-34) H 09/11/17 16:28 - Constitutional Appears: Well - Head Exam Head Exam: ATRAUMATIC, NORMAL INSPECTION, NORMOCEPHALIC - Eye Exam Eye Exam: EOMI, Normal appearance, PERRL Pupil Exam: NORMAL ACCOMODATION, PERRL - ENT Exam ENT Exam: Mucous Membranes Moist, Normal Exam - Neck Exam Neck Exam: Full ROM, Normal Inspection. absent: Lymphadenopathy - Respiratory Exam Respiratory Exam: Decreased Breath Sounds - Cardiovascular Exam Cardiovascular Exam: REGULAR RHYTHM, +S1, +S2 - GI/Abdominal Exam GI & Abdominal Exam: Soft, Diminished Bowel Sounds - Rectal Exam Rectal Exam: Deferred
[2017-09-14] MEDS: Dextrose 5%/0.45% NS 1,000 ML IV SCH ×2 (03:45→11:07)
[2017-09-14 06:20] LABS: BASO % 0.3 % (0.0-2.0); EOS % 0.1 % (0.0-4.0); LYMPH % 39.2 % (20.0-40.0); MEAN CELL VOLUME 90.9 fL (81.0-99.0); MEAN CORPUSCULAR HEMOGLOBIN 31.3 pg (27.0-31.0); MEAN CORPUSCULAR HGB CONC 34.4 g/dL (33.0-37.0); MEAN PLATELET VOLUME 9.9 fL (7.2-11.7); MONO # 0.6 K/uL (0.0-0.8); MONO % 24.3 % (0.0-10.0); NEUT # 0.9 K/uL (1.8-7.0); NEUT % 36.1 % (50.0-75.0); NRBC % 5.9 % (0.0-2.0); PLATELET COUNT 63 K/uL (130-400); RBC 2.88 Mil/uL (3.80-5.20); RED CELL DISTRIBUTION WIDTH 14.9 % (11.5-14.5); WHITE BLOOD COUNT 2.5 K/uL (4.8-10.8)
[2017-09-14 06:33] LABS: ALB/GLOB RATIO 0.6 (1.0-2.1); ALBUMIN 2.1 g/dL (3.5-5.0); ALT/SGPT 182 U/L (9-52); AST/SGOT 527 U/L (14-36); BLOOD UREA NITROGEN 20 mg/dL (7-17); CALCIUM 7.1 mg/dl (8.6-10.4); GFR AFRICAN-AMERICAN > 60; GFR NON-AFRICAN AMERICAN > 60
--- NOTE | 2017-09-14 06:43 | CON ---
DATE: 09/13/2017. ENDOCRINOLOGY CONSULTATION LOCATION: Room 359. HISTORY OF PRESENT ILLNESS: This is a 57-year-old female with known history of metastatic breast carcinoma, admitted here with generalized body weakness and supervening diffuse abdominal pain with loose watery diarrhea and is now being referred for evaluation of abnormal thyroid function studies. PAST MEDICAL HISTORY: As mentioned above, history of metastatic breast carcinoma with liver and bone metastasis as noted. She was initially diagnosed with left breast cancer in 2013 and underwent mastectomy with subsequent chemo and hormonal therapy and currently is back to chemotherapy at this time, history of hypertension and dyslipidemia. FAMILY HISTORY: Positive for hypertension and heart disease. SOCIAL HISTORY: The patient admits to smoking, smoking half a pack a day for some years now. No other substance use. REVIEW OF SYSTEMS: Admits to generalized body weakness with suboptimal energy level and increasing generalized malaise with easy fatigability and tiredness, also admits to episodic dizziness and lightheadedness, worse on the day of admission. She admits also to bifrontal headaches as noted. No chest pains or palpitations, but admits to progressive shortness of breath, especially on exertion. Her oral intake has been very poor and suboptimal with nausea, dyspepsia and marked anorexia and subsequent weight loss. She also has developed sudden onset of diffuse abdominal pain with loose watery diarrhea as noted. PHYSICAL EXAMINATION: GENERAL: This is an averagely built female in no apparent distress. VITAL SIGNS: Blood pressure of 130/80, pulse of 100 beats per minute, regular, temperature 99, respirations 20, height is 4 feet 9 inches, weight is 123 pounds. HEENT: Head normocephalic, eyes nonicteric with pink conjunctivae. Funduscopy is not possible at this time. Ears, nose, and throat otherwise normal. NECK: Supple. Salivary gland is normal size. No carotid bruits or cervical adenopathy. CARDIOPULMONARY: Shows adynamic precordium. S1 and S2 is rapid and regular. LUNGS: Clear to auscultation. ABDOMEN: Flat, soft with positive bowel sounds. EXTREMITIES: No peripheral edema, pulses are +2 bilaterally. LABORATORY DATA: Her chemistry showed a BUN of 23, sodium 143, potassium 3.2, chloride 111, CO2 25, glucose 137 and creatinine 0.8. Her liver transaminases are elevated with AST of 640, ALT of 205, and alkaline phosphatase of 166. Her ammonia level was initially done at 102 and the repeat today is 48. Her TSH is 0.31 with a free T4 of 1.48. Prolactin is 7.8. ASSESSMENT: This is a 57-year-old female with constitutional symptoms presenting here with diffuse abdominal pain and loose watery diarrhea with marked anorexia and now also being referred for evaluation of abnormal thyroid function studies. She remains clinically euthyroid and bichemically has evidence of early TSH suppression which could most likely be secondary to the so called acute sick euthyroid syndrome, although we have to exclude any underlying subclinical hyperthyroidism at this time, especially with aforementioned constitutional symptoms and also recent loose watery diarrhea. PLAN OF MANAGEMENT: We will obtain a comprehensive thyroid hormonal profile with a total and free T4 and TSH to be done tomorrow morning and a repeat TSH also will be undertaken with a thyroid stimulating immunoglobulin to exclude any underlying thyroid autoimmunity. We will obtain also a serum cortisol level to exclude any underlying adrenal metastasis. We will obtain serum chemistries and supplement accordingly as needed. We will follow with you. Diane Kuhn MD
[2017-09-14 08:37] LABS: BANDS 8 % (0-2); LYMPHOCYTE 37 % (20-40); MONOCYTE 23 % (0-10); NEUTROPHIL 32 % (50-75); TOTAL CELLS COUNTED 100
[2017-09-14 08:38] LABS: ANISOCYTOSIS SLIGHT; HYPOCHROMIC SLIGHT; PLATELET ESTIMATE DECREASED (NORMAL); POLYCHROMIC SLIGHT; TARGET CELLS MODERATE
[2017-09-14 08:39] LABS: BURR CELLS SLIGHT; TEARDROP CELLS SLIGHT
[2017-09-14] MEDS: Enoxaparin 40 mg Syringe SC SCH (09:33)
[2017-09-14] MEDS: Docusate-Senna 50 mg-8.6 mg Tab PO SCH ×2 (09:33→21:21)
--- NOTE | 2017-09-14 10:18 | CP.PCM.PN ---
<Nhi Pino - Last Filed: 09/14/17 13:02> Subjective - Date & Time of Evaluation Date of Evaluation: 09/14/17 Time of Evaluation: 09:00 - Subjective Subjective: Cardiology progress note for Dr. Guthrie: Patient seen and examined at bedside. Was awake but not verbal and unable to obtain ROS. Yesterday DDimer was ordered for tachycardia. CTA was ordered but unable to be done because patient does not have proper access. Nursing has attempted many times. Patient is still mildly tachcardic but no changes from yesterday. Objective - Vital Signs/Intake and Output Vital Signs (last 24 hours): Temp Pulse Resp BP Pulse Ox 98.5 F 104 H 20 100/58 L 97 09/14/17 08:59 09/14/17 08:59 09/14/17 08:59 09/14/17 08:59 09/14/17 08:59 Intake and Output: 09/14/17 09/14/17 06:59 18:59 Intake Total 1240 Balance 1240 - Medications Medications: Current Medications Docusate Sodium (Colace) 100 mg PO BID [facility] Last Admin: 09/14/17 09:33 Dose: Not Given Enoxaparin Sodium (Lovenox) 56 mg SC BID [facility] Dextrose/Sodium Chloride (Dextrose 5%/0.45% Ns 1000 Ml) 1,000 mls @ 80 mls/hr IV .[id number] [facility] Last Admin: 09/14/17 03:45 Dose: Not Given Lactulose (Enulose) 200 gm [place] BID [facility] Stop: 09/14/17 18:01 Last Admin: 09/13/17 19:00 Dose: 200 gm Metoprolol Tartrate (Lopressor) 12.5 mg PO BID [facility] Last Admin: 09/14/17 09:33 Dose: Not Given Pantoprazole Sodium (Protonix Inj) 40 mg IVP DAILY [facility] Last Admin: 09/14/17 09:33 Dose: 40 mg Rifaximin (Xifaxan) 550 mg PO BID [facility] Last Admin: 09/14/17 09:34 Dose: Not Given Senna/Docusate Sodium (Senokot S 50 Mg-8.6 Mg) 1 tab PO BID [facility] Last Admin: 09/14/17 09:33 Dose: Not Given - Labs Labs: 09/14/17 06:16 09/14/17 06:16 PT 29.3 SECONDS (9.7-12.2) H 09/11/17 16:28 INR 2.5 09/11/17 16:28 APTT 36 SECONDS (21-34) H 09/11/17 16:28 - Constitutional Appears: No Acute Distress, Chronically Ill - Respiratory Exam Respiratory Exam: Clear to Ausculation Bilateral. absent: Accessory Muscle Use , Respiratory Distress Additional comments: On NC - Cardiovascular Exam Cardiovascular Exam: Tachycardia, REGULAR RHYTHM, +S1, +S2 - GI/Abdominal Exam GI & Abdominal Exam: Soft, Normal Bowel Sounds - Extremities Exam Extremities Exam: Normal Inspection - Back Exam Back Exam: NORMAL INSPECTION - Neurological Exam Neurological Exam: Awake. absent: Alert, Oriented x3 - Skin Skin Exam: Normal Color. absent: Cyanosis Assessment and Plan - Assessment and Plan (Free Text) Assessment: Tachycardia CTA not able to be obtained due to poor access, CT can't access port for scan. Lung VQ ordered DDimer >5250 Lovenox 56mg SC BID Will start Metorpolol 12.5 mg PO BID - not being given because patient NPO per primary Patient with poor prognosis given current condition, family is to decide on hospice care Discussed with Dr. Guthrie <Roberto Guthrie - Last Filed: 09/14/17 23:04> Objective - Vital Signs/Intake and Output Vital Signs (last 24 hours): Temp Pulse Resp BP Pulse Ox 98.7 F 106 H 20 107/71 98 09/14/17 15:00 09/14/17 15:00 09/14/17 15:00 09/14/17 15:00 09/14/17 15:00 Intake and Output: 09/14/17 09/15/17 18:59 06:59 Intake Total 640 Balance 640 - Medications Medications: Current Medications Docusate Sodium (Colace) 100 mg PO BID [facility] Last Admin: 09/14/17 21:20 Dose: Not Given Enoxaparin Sodium (Lovenox) 56 mg SC BID [facility] Last Admin: 09/14/17 17:16 Dose: 56 mg Dextrose/Sodium Chloride (Dextrose 5%/0.45% Ns 1000 Ml) 1,000 mls @ 80 mls/hr IV .[id number] [facility] Last Admin: 09/14/17 11:07 Dose: 80 mls/hr Metoprolol Tartrate (Lopressor) 12.5 mg PO BID [facility] Last Admin: 09/14/17 21:21 Dose: Not Given Pantoprazole Sodium (Protonix Inj) 40 mg IVP DAILY [facility] Last Admin: 09/14/17 09:33 Dose: 40 mg Rifaximin (Xifaxan) 550 mg PO BID [facility] Last Admin: 09/14/17 21:21 Dose: Not Given Senna/Docusate Sodium (Senokot S 50 Mg-8.6 Mg) 1 tab PO BID [facility] Last Admin: 09/14/17 21:21 Dose: Not Given - Labs Labs: 09/14/17 06:16 09/14/17 06:16 PT 29.3 SECONDS (9.7-12.2) H 09/11/17 16:28 INR 2.5 09/11/17 16:28 APTT 36 SECONDS (21-34) H 09/11/17 16:28 Assessment and Plan - Assessment and Plan (Free Text) Plan: Patient seen and evaluated personally by la Plan of care d/w the medical billing coordinator and as documented
--- NOTE | 2017-09-14 12:27 | PN ---
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 PHYSICAL EXAMINATION GENERAL: The patient is obtunded, moves occasionally both upper and lower extremities, verbally nonresponsive. VITAL SIGNS: Blood pressure 108/76, mean artery pressure of 86, respiratory rate 18, temperature 97.9. The patient examination as stated, unchanged compared with my previous examination. The patient should have recommended testing including electroencephalogram, which has been pending. The patient's ammonia level brought down to 49. The patient also showed significant liver function abnormal findings, electrolyte imbalance and abnormal complete blood counts. The patient's overall prognosis is poor. Continue the supportive care. The patient might be a good candidate for hospice. Mo Doan MD
--- NOTE | 2017-09-14 13:53 | CP.PCM.PN ---
Subjective - Date & Time of Evaluation Date of Evaluation: 09/14/17 Time of Evaluation: 07:00 - Subjective Subjective: clinically same Objective - Vital Signs/Intake and Output Vital Signs (last 24 hours): Temp Pulse Resp BP Pulse Ox 98.5 F 104 H 20 100/58 L 97 09/14/17 08:59 09/14/17 08:59 09/14/17 08:59 09/14/17 08:59 09/14/17 08:59 Intake and Output: 09/14/17 09/14/17 06:59 18:59 Intake Total 1240 Balance 1240 - Medications Medications: Current Medications Docusate Sodium (Colace) 100 mg PO BID [facility] Last Admin: 09/14/17 09:33 Dose: Not Given Enoxaparin Sodium (Lovenox) 56 mg SC BID [facility] Dextrose/Sodium Chloride (Dextrose 5%/0.45% Ns 1000 Ml) 1,000 mls @ 80 mls/hr IV .[id number] [facility] Last Admin: 09/14/17 11:07 Dose: 80 mls/hr Lactulose (Enulose) 200 gm [place] BID [facility] Stop: 09/14/17 18:01 Last Admin: 09/14/17 11:09 Dose: 200 gm Metoprolol Tartrate (Lopressor) 12.5 mg PO BID [facility] Pantoprazole Sodium (Protonix Inj) 40 mg IVP DAILY [facility] Last Admin: 09/14/17 09:33 Dose: 40 mg Rifaximin (Xifaxan) 550 mg PO BID [facility] Last Admin: 09/14/17 09:34 Dose: Not Given Senna/Docusate Sodium (Senokot S 50 Mg-8.6 Mg) 1 tab PO BID [facility] Last Admin: 09/14/17 09:33 Dose: Not Given - Labs Labs: 09/14/17 06:16 09/14/17 06:16 PT 29.3 SECONDS (9.7-12.2) H 09/11/17 16:28 INR 2.5 09/11/17 16:28 APTT 36 SECONDS (21-34) H 09/11/17 16:28 - Constitutional Appears: Well - Head Exam Head Exam: ATRAUMATIC, NORMAL INSPECTION, NORMOCEPHALIC - Eye Exam Eye Exam: EOMI, Normal appearance, PERRL Pupil Exam: NORMAL ACCOMODATION, PERRL - ENT Exam ENT Exam: Mucous Membranes Moist, Normal Exam - Neck Exam Neck Exam: Full ROM, Normal Inspection. absent: Lymphadenopathy - Respiratory Exam Respiratory Exam: Decreased Breath Sounds - Cardiovascular Exam Cardiovascular Exam: REGULAR RHYTHM, +S1, +S2 - GI/Abdominal Exam GI & Abdominal Exam: Soft, Diminished Bowel Sounds - Rectal Exam Rectal Exam: Deferred
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
[2017-09-14] MEDS: Enoxaparin 60 mg Syringe SC SCH (17:16)
--- NOTE | 2017-09-14 17:47 | CP.PCM.CON ---
History of Present Illness - History of Present Illness History of Present Illness: Patient is a 57yo female with a PMH of left metastatic breast cancer with liver and bone metastases. Patient underwent chemo and hormonal therapy in 2013 and is now on chemotherapy. Patient also has a PMH of HTN and dyslipidemia. Patient smokes half pack per day. Patient presented to [facility] at the request of her PMD with complaints of intermittent dizziness, headache, abdominal distension, vomiting, poor appetite, and generalized weakness. Pulmonology service was consulted for shortness of breath and elevated D-dimer to rule out PE. At this time, patient was examined in bed. Patient nodded when asked if her breathing was okay. Patient on 3L oxygen. Patient is non-verbal, ROS could not be obtained. Patient lying comfortably in bed in no acute distress. Family has been meeting with palliative care to discuss hospice as clinical prognosis is poor. GI, neuro, cardio, endo following patient as well. D-dimer > 5250 ? CXR 09/11: no active disease. No significant interval change. Abdominal ultrasound 09/11: Limited study due to patient condition. Moderately enlarged markedly heterogeneous liver demonstrates nodular appearance and marked heterogeneous echotexture with patchy foci of slightly high echogenicity. Findings may represent advanced cirrhosis with nodular regeneration of the liver parenchyma. The possibility of scattered small tumors/ metastasis is not totally excluded. Mild right hydronephrosis. Nonvisualization of the gallbladder. Small/ trace free fluid in the abdomen. The pancreas obscured by overlying bowel gas. Abdomen/Pelvis CT 09/08: 1. Hepatomegaly. Markedly heterogeneous liver with nodular contour suggestive of cirrhosis. Multiple hypodense areas within the liver. Cannot exclude underlying metastatic lesions. 2. Constipation. 3. Moderate right hydronephrosis. 4. Indeterminate left adrenal mass. 5. Diffuse osseous metastases. Assessment/Plan 1. Elevated D-dimer - acute: VQ scan on lovenox, Echo 2. Shortness of breath - acute: supplemental oxygen therapy Past Patient History - Past Medical History & Family History Past Medical History?: Yes - Past Social History Smoking Status: Light Smoker < 10 Cigarettes Daily - CARDIAC Hx Hypertension: Yes - PULMONARY Hx Respiratory Disorders: No - NEUROLOGICAL HX Cerebrovascular Accident: Yes - HEENT Hx HEENT Problems: No - RENAL Hx Chronic Kidney Disease: No - ENDOCRINE/METABOLIC Hx Endocrine Disorders: No - HEMATOLOGICAL/ONCOLOGICAL Hx Blood Disorders: Yes Hx Blood Transfusions: Yes Hx Blood Transfusion Reaction: No Hx Cancer: Yes (BREAST LEFT) Hx Chemotherapy: Yes Hx Metastesis: Yes (LIVER) - INTEGUMENTARY Hx Dermatological Problems: Yes Other/Comment: SCARS FROM ANN IN CHILDHOOD/ABDOMEN - MUSCULOSKELETAL/RHEUMATOLOGICAL Hx Falls: No - GASTROINTESTINAL Hx Bowel Surgery: Yes Hx Colostomy: Yes (reversed) Hx Gastritis: Yes - GENITOURINARY/GYNECOLOGICAL Hx Genitourinary Disorders: Yes Hx Reproductive Disorders: Yes - PSYCHIATRIC Hx Substance Use: No - SURGICAL HISTORY Hx Surgeries: Yes Hx Hysterectomy: Yes Hx Mastectomy: Yes (LEFT) Other/Comment: liver biopsy. portacath insertion 07/2015 - ANESTHESIA Hx Anesthesia: Yes Hx Anesthesia Reactions: No Hx Malignant Hyperthermia: No Meds Allergies/Adverse Reactions: Allergies Allergy/AdvReac Type Severity Reaction Status Date / Time No Known Allergies Allergy Verified 08/15/15 09:57 - Medications Medications: Current Medications Docusate Sodium (Colace) 100 mg PO BID [facility] Last Admin: 09/14/17 09:33 Dose: Not Given Enoxaparin Sodium (Lovenox) 56 mg SC BID [facility] Last Admin: 09/14/17 17:16 Dose: 56 mg Dextrose/Sodium Chloride (Dextrose 5%/0.45% Ns 1000 Ml) 1,000 mls @ 80 mls/hr IV .[id number] [facility] Last Admin: 09/14/17 11:07 Dose: 80 mls/hr Lactulose (Enulose) 200 gm [place] BID [facility] Stop: 09/14/17 18:01 Last Admin: 09/14/17 17:12 Dose: 200 gm Metoprolol Tartrate (Lopressor) 12.5 mg PO BID [facility] Last Admin: 09/14/17 17:13 Dose: 12.5 mg Pantoprazole Sodium (Protonix Inj) 40 mg IVP DAILY [facility] Last Admin: 09/14/17 09:33 Dose: 40 mg Rifaximin (Xifaxan) 550 mg PO BID [facility] Last Admin: 09/14/17 09:34 Dose: Not Given Senna/Docusate Sodium (Senokot S 50 Mg-8.6 Mg) 1 tab PO BID [facility] Last Admin: 09/14/17 09:33 Dose: Not Given Results - Vital Signs Recent Vital Signs: Last Vital Signs Temp 98.7 F 09/14/17 15:00 Pulse 106 H 09/14/17 15:00 Resp 20 09/14/17 15:00 BP 107/71 09/14/17 15:00 Pulse Ox 98 09/14/17 15:00 - Labs Result Diagrams: 09/14/17 06:16 09/14/17 06:16 Labs: Laboratory Results - last 24 hr 09/14/17 09/14/17 09/14/17 06:16 06:16 06:16 WBC 2.5 L RBC 2.88 L Hgb 9.0 L Hct 26.2 L MCV 90.9 MCH 31.3 H MCHC 34.4 RDW 14.9 H Plt Count 63 L D MPV 9.9 Neut % (Auto) 36.1 L Lymph % (Auto) 39.2 Bonner % (Auto) 24.3 H Eos % (Auto) 0.1 Baso % (Auto) 0.3 Neut # (Auto) 0.9 L Lymph # (Auto) 1.0 Bonner # (Auto) 0.6 Eos # (Auto) 0.0 Baso # (Auto) 0.0 Neutrophils % (Manual) 32 L Band Neutrophils % 8 H Lymphocytes % (Manual) 37 Monocytes % (Manual) 23 H Platelet Estimate Decreased L Polychromasia Slight Hypochromasia (manual) Slight Anisocytosis (manual) Slight Target Cells Moderate Tear Drop Cells Slight Ji Cells Slight Sodium 144 Potassium 3.7 Chloride 113 H Carbon Dioxide 24 Anion Gap 10 BUN 20 H Creatinine 0.8 Est GFR ( Amer) > 60 Est GFR (Non-Af Amer) > 60 POC Glucose (mg/dL) Random Glucose 131 H Calcium 7.1 L Phosphorus 1.5 L Magnesium 1.9 Total Bilirubin 6.9 H AST 527 H ALT 182 H Alkaline Phosphatase 150 H Ammonia 49 H Total Protein 5.6 L Albumin 2.1 L Globulin 3.5 Albumin/Globulin Ratio 0.6 L Free T4 Thyroxine (T4) 6.00 TSH 3rd Generation 3.03 Cortisol AM Sample 09/14/17 09/14/17 09/14/17 06:16 06:50 07:37 WBC RBC Hgb Hct MCV MCH MCHC RDW Plt Count MPV Neut % (Auto) Lymph % (Auto) Bonner % (Auto) Eos % (Auto) Baso % (Auto) Neut # (Auto) Lymph # (Auto) Bonner # (Auto) Eos # (Auto) Baso # (Auto) Neutrophils % (Manual) Band Neutrophils % Lymphocytes % (Manual) Monocytes % (Manual) Platelet Estimate Polychromasia Hypochromasia (manual) Anisocytosis (manual) Target Cells Tear Drop Cells [place] Cells Sodium Potassium Chloride Carbon Dioxide Anion Gap BUN Creatinine Est GFR ( Amer) Est GFR (Non-Af Amer) POC Glucose (mg/dL) 128 H Random Glucose Calcium Phosphorus Magnesium Total Bilirubin AST ALT Alkaline Phosphatase Ammonia Total Protein Albumin Globulin Albumin/Globulin Ratio Free T4 1.24 Thyroxine (T4) TSH 3rd Generation Cortisol AM Sample 25.8 H
--- NOTE | 2017-09-14 20:30 | CP.PCM.PN ---
Subjective - Date & Time of Evaluation Date of Evaluation: 09/14/17 Time of Evaluation: 20:27 - Subjective Subjective: The patient remains lethargic, But is arousable and able to answer questions.poor PO intake, being evaluated by GI and Pulmonary. Plan- Terminal, advanced, metastatic breast cancer, will need to discuss hospice with family. Would not advise PEG placement, no evidence of improvement of QOL or OS. Objective - Vital Signs/Intake and Output Vital Signs (last 24 hours): Temp Pulse Resp BP Pulse Ox 98.7 F 106 H 20 107/71 98 09/14/17 15:00 09/14/17 15:00 09/14/17 15:00 09/14/17 15:00 09/14/17 15:00 Intake and Output: 09/14/17 09/15/17 18:59 06:59 Intake Total 640 Balance 640 - Medications Medications: Current Medications Docusate Sodium (Colace) 100 mg PO BID [facility] Last Admin: 09/14/17 09:33 Dose: Not Given Enoxaparin Sodium (Lovenox) 56 mg SC BID [facility] Last Admin: 09/14/17 17:16 Dose: 56 mg Dextrose/Sodium Chloride (Dextrose 5%/0.45% Ns 1000 Ml) 1,000 mls @ 80 mls/hr IV .[id number] [facility] Last Admin: 09/14/17 11:07 Dose: 80 mls/hr Metoprolol Tartrate (Lopressor) 12.5 mg PO BID [facility] Last Admin: 09/14/17 17:13 Dose: 12.5 mg Pantoprazole Sodium (Protonix Inj) 40 mg IVP DAILY [facility] Last Admin: 09/14/17 09:33 Dose: 40 mg Rifaximin (Xifaxan) 550 mg PO BID [facility] Last Admin: 09/14/17 09:34 Dose: Not Given Senna/Docusate Sodium (Senokot S 50 Mg-8.6 Mg) 1 tab PO BID [facility] Last Admin: 09/14/17 09:33 Dose: Not Given - Labs Labs: 09/14/17 06:16 09/14/17 06:16 PT 29.3 SECONDS (9.7-12.2) H 09/11/17 16:28 INR 2.5 09/11/17 16:28 APTT 36 SECONDS (21-34) H 09/11/17 16:28 Assessment and Plan (1) Metastatic breast cancer Status: Acute
--- NOTE | 2017-09-14 22:29 | PN ---
DATE: ENDOCRINOLOGY FOLLOWUP LOCATION: Room 359 SUBJECTIVE: This is a 57-year-old female with metastatic breast carcinoma presenting here with generalized body weakness and is being followed closely for metabolic management. She also presented here with diffuse abdominal pain and distention with marked anorexia and progressive weight loss as noted. LABORATORY DATA: Her repeat chemistries showed a BUN of 20, sodium 144, potassium 3.7, chloride is 113, CO2 of 24, glucose 131, and creatinine 0.8. Her repeat thyroid studies showed the T4 of 6.0 with the TSH of 3.03 and a free T4 of 1.24. Her serum cortisol level is 25.8. Her ammonia level is now 49 as noted with markedly elevated liver transaminases indicative of hepatic metastasis also at this time. ASSESSMENT AND PLAN: She remains clinically and biochemically euthyroid at this time to the so called acute sick euthyroid syndrome as noted. There is no indication at this time for any kind of thyroid pharmacotherapy and she is expected improvement of her biochemical indices as the clinical status improves accordingly. We will obtain serial chemistries and supplement accordingly as needed. We will follow with you. Diane Kuhn MD
[2017-09-15] MEDS: Dextrose 5%/0.45% NS 1,000 ML IV SCH ×4 (02:10→17:45)
[2017-09-15] MEDS: Enoxaparin 60 mg Syringe SC SCH ×2 (09:50→17:29)
[2017-09-15] MEDS: Docusate-Senna 50 mg-8.6 mg Tab PO SCH ×2 (09:51→17:29)
--- NOTE | 2017-09-15 13:01 | CP.PCM.PN ---
Subjective - Date & Time of Evaluation Date of Evaluation: 09/15/17 Time of Evaluation: 13:01 - Subjective Subjective: PGY2 Note for Dr. Juanita Potts; all management as per Dr. Juanita potts Patient seen and examined at bedside this AM; patient is chronically ill and terminally ill with breast cancer; she is begging for sips of water and looks extremely uncomfortable in bed; she offers no complaints other than requesting sips of water. Objective - Vital Signs/Intake and Output Vital Signs (last 24 hours): Temp Pulse Resp BP Pulse Ox 98.7 F 92 H 20 110/77 97 09/15/17 07:30 09/15/17 07:30 09/15/17 07:30 09/15/17 07:30 09/15/17 07:30 Intake and Output: 09/15/17 09/15/17 06:59 18:59 Intake Total 640 Balance 640 - Medications Medications: Current Medications Docusate Sodium (Colace) 100 mg PO BID [facility] Last Admin: 09/15/17 09:50 Dose: Not Given Enoxaparin Sodium (Lovenox) 56 mg SC BID [facility] Last Admin: 09/15/17 09:50 Dose: 56 mg Dextrose/Sodium Chloride (Dextrose 5%/0.45% Ns 1000 Ml) 1,000 mls @ 80 mls/hr IV .[id number] [facility] Last Admin: 09/15/17 04:45 Dose: Not Given Metoprolol Tartrate (Lopressor) 12.5 mg PO BID [facility] Last Admin: 09/15/17 09:50 Dose: Not Given Pantoprazole Sodium (Protonix Inj) 40 mg IVP DAILY [facility] Last Admin: 09/15/17 09:50 Dose: 40 mg Rifaximin (Xifaxan) 550 mg PO BID [facility] Last Admin: 09/15/17 09:51 Dose: Not Given Senna/Docusate Sodium (Senokot S 50 Mg-8.6 Mg) 1 tab PO BID [facility] Last Admin: 09/15/17 09:51 Dose: Not Given Vitamin A (Vitamin A & D Oint Ud Foilpak) 0.5 ea TOP Q4 [facility] - Labs Labs: 09/14/17 06:16 09/14/17 06:16 PT 29.3 SECONDS (9.7-12.2) H 09/11/17 16:28 INR 2.5 09/11/17 16:28 APTT 36 SECONDS (21-34) H 09/11/17 16:28 - Head Exam Additional comments: Head Exam: ATRAUMATIC, NORMAL INSPECTION, NORMOCEPHALIC, dry lips, begging for water - ENT Exam ENT Exam: Mucous Membranes Dry - Neck Exam Neck Exam: Full ROM, Normal Inspection - Respiratory Exam Respiratory Exam: absent: Respiratory Distress - Cardiovascular Exam Cardiovascular Exam: Tachycardia, +S1, +S2 - GI/Abdominal Exam GI & Abdominal Exam: Soft, Normal Bowel Sounds. absent: Tenderness - Extremities Exam Extremities Exam: Full ROM, Normal Inspection - Neurological Exam Neurological Exam: Altered. absent: Alert, Normal Gait, Oriented x3 - Psychiatric Exam Additional comments: Unable to assess - Skin Skin Exam: Dry, Intact, Normal Color, Warm Assessment and Plan - Assessment and Plan (Free Text) Assessment: This is a 57 yo female admitted for metastatic breast cancer, and now hospice evaluation 1. Metastatic breast cancer -pt has altered mental status -initial head CT negative -repeat head CT on 09/11 shows non specific white matter changes -neurology consult. recs appreciated. -heme/onc consult. recs appreciated. -continue D5 1/ NS -urine culture negative -NPO secondary to inability to swallow as per swallow eval -patient is DNI/DNR comfort care; awaiting hospice recs 2. Encephalopathy- metabolic vs toxic vs space occupying lesion -EEG pending -r/o non convulsive seizure -seizure precautions -fall precautions -GI consult. recs appreciated. -neurology consult. DR RIBERA. recs appreciated. -continue lactulose [place] -continue rifaximin -continue milk of mag 3. hyperammonemia;chronic -continue lactulose -continue rifaximin -GI consult as above. 4. Tachycardia; most likely 2/2 to pain -initial ekg showed sinus tach -pt tachy again this morning -cardiology consult. recs appreciated. DR DIAZ. 5. Low TSH -TSH low -T4 normal -T3 pending -may be causing/contributing to tachycardia -endocrinology consult. recs appreciated. 5. GI/DVT ppx -continue protonix -continue scds -palliative care consult- pt may transition to hospice care; pending their recs [place]: Poor; patient should be kept as comfortable as possible discussed with Dr. Juanita Potts; all management as per Dr. Juanita potts
--- NOTE | 2017-09-15 16:03 | CP.PCM.PN ---
Subjective - Date & Time of Evaluation Date of Evaluation: 09/15/17 Time of Evaluation: 10:00 Objective - Vital Signs/Intake and Output Vital Signs (last 24 hours): Temp Pulse Resp BP Pulse Ox 98.7 F 92 H 20 110/77 98 09/15/17 07:30 09/15/17 12:15 09/15/17 07:30 09/15/17 07:30 09/15/17 12:15 Intake and Output: 09/15/17 09/15/17 06:59 18:59 Intake Total 640 920 Balance 640 920 - Medications Medications: Current Medications Docusate Sodium (Colace) 100 mg PO BID [facility] Last Admin: 09/15/17 09:50 Dose: Not Given Enoxaparin Sodium (Lovenox) 56 mg SC BID [facility] Last Admin: 09/15/17 09:50 Dose: 56 mg Dextrose/Sodium Chloride (Dextrose 5%/0.45% Ns 1000 Ml) 1,000 mls @ 80 mls/hr IV .[id number] [facility] Last Admin: 09/15/17 14:03 Dose: 80 mls/hr Metoprolol Tartrate (Lopressor) 12.5 mg PO BID [facility] Last Admin: 09/15/17 09:50 Dose: Not Given Pantoprazole Sodium (Protonix Inj) 40 mg IVP DAILY [facility] Last Admin: 09/15/17 09:50 Dose: 40 mg Rifaximin (Xifaxan) 550 mg PO BID [facility] Last Admin: 09/15/17 09:51 Dose: Not Given Senna/Docusate Sodium (Senokot S 50 Mg-8.6 Mg) 1 tab PO BID [facility] Last Admin: 09/15/17 09:51 Dose: Not Given Vitamin A (Vitamin A & D Oint Ud Foilpak) 0.5 ea TOP Q4 [facility] - Labs Labs: 09/14/17 06:16 09/14/17 06:16 PT 29.3 SECONDS (9.7-12.2) H 09/11/17 16:28 INR 2.5 09/11/17 16:28 APTT 36 SECONDS (21-34) H 09/11/17 16:28 - Constitutional Appears: No Acute Distress - Head Exam Head Exam: ATRAUMATIC, NORMAL INSPECTION, NORMOCEPHALIC - Eye Exam Eye Exam: EOMI, Normal appearance, PERRL Pupil Exam: NORMAL ACCOMODATION, PERRL - ENT Exam ENT Exam: Mucous Membranes Moist - Neck Exam Neck Exam: Full ROM - Respiratory Exam Respiratory Exam: Decreased Breath Sounds - Cardiovascular Exam Cardiovascular Exam: REGULAR RHYTHM, +S1, +S2 - GI/Abdominal Exam GI & Abdominal Exam: Soft, Diminished Bowel Sounds - Rectal Exam Rectal Exam: Deferred - 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
[2017-09-15] MEDS: Vitamins A & D Oint UD Foilpak TOP SCH ×2 (17:30→21:47)
--- NOTE | 2017-09-15 18:44 | CP.PCM.PN ---
Subjective - Date & Time of Evaluation Date of Evaluation: 09/15/17 Time of Evaluation: 10:20 - Subjective Subjective: Patient seen and examined in bed. Patient resting comfortably, requesting water but is NPO. Patient able to converse today slightly. Patient states her breathing is so-so and complains of a cough and shortness of breath. Denies chest pain. Assessment/Plan 1. Shortness of breath - acute: supplemental oxygen therapy 2. Metastatic breast cancer - family considering hospice care 3. Continue supportive care Objective - Vital Signs/Intake and Output Vital Signs (last 24 hours): Temp Pulse Resp BP Pulse Ox 98 F 99 H 20 118/75 98 09/15/17 16:00 09/15/17 16:00 09/15/17 16:00 09/15/17 16:00 09/15/17 16:00 Intake and Output: 09/15/17 09/15/17 06:59 18:59 Intake Total 640 920 Balance 640 920 - Medications Medications: Current Medications Docusate Sodium (Colace) 100 mg PO BID [facility] Last Admin: 09/15/17 17:30 Dose: 100 mg Enoxaparin Sodium (Lovenox) 56 mg SC BID [facility] Last Admin: 09/15/17 17:29 Dose: 56 mg Dextrose/Sodium Chloride (Dextrose 5%/0.45% Ns 1000 Ml) 1,000 mls @ 80 mls/hr IV .[id number] [facility] Last Admin: 09/15/17 14:03 Dose: 80 mls/hr Metoprolol Tartrate (Lopressor) 12.5 mg PO BID [facility] Last Admin: 09/15/17 17:30 Dose: 12.5 mg Pantoprazole Sodium (Protonix Inj) 40 mg IVP DAILY [facility] Last Admin: 09/15/17 09:50 Dose: 40 mg Rifaximin (Xifaxan) 550 mg PO BID [facility] Last Admin: 09/15/17 17:30 Dose: 550 mg Senna/Docusate Sodium (Senokot S 50 Mg-8.6 Mg) 1 tab PO BID [facility] Last Admin: 09/15/17 17:29 Dose: 1 tab Vitamin A (Vitamin A & D Oint Ud Foilpak) 0.5 ea TOP Q4 [facility] Last Admin: 09/15/17 17:30 Dose: 0.5 ea - Labs Labs: 09/14/17 06:16 09/14/17 06:16 PT 29.3 SECONDS (9.7-12.2) H 09/11/17 16:28 INR 2.5 09/11/17 16:28 APTT 36 SECONDS (21-34) H 09/11/17 16:28
--- NOTE | 2017-09-15 23:04 | PN ---
DATE: ENDOCRINOLOGY FOLLOWUP NOTE LOCATION: Room 359. This is a 57-year-old female with metastatic breast carcinoma and now is being followed closely for metabolic management. She remains clinically euthyroid at this time and the repeat thyroid studies showed a T4 of 6.0 with a TSH of 3.03 and a free T4 of 1.24. The initial TSH suppression was most likely related to the so called acute sick euthyroid syndrome that improves accordingly over time as the clinical condition improves. The serum cortisol level is 25.8 mcg/dL. Her repeat chemistries showed a BUN of 20, sodium 144, potassium 3.7, chloride 113, CO2 of 24, glucose 131, creatinine 0.8. Her liver transaminases are elevated with the intercurrent metastatic involvement of the liver as noted thereof. Her ammonia level is improving with the latest level of 49, with initial value of over 100 upon admission. We will obtain serial chemistries and supplement accordingly as needed. There is no indication of this type or any kind of thyroid pharmacotherapy. We will obtain serial thyroid studies and observe the metabolic fluctuation and improvement thereof. We will follow with you. Diane Kuhn MD
[2017-09-16] MEDS: Vitamins A & D Oint UD Foilpak TOP SCH ×6 (00:05→22:48)
[2017-09-16] MEDS: Dextrose 5%/0.45% NS 1,000 ML IV SCH ×2 (05:19→20:18)
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
[2017-09-16] MEDS: Docusate-Senna 50 mg-8.6 mg Tab PO SCH ×2 (10:52→17:40)
[2017-09-16] MEDS: Enoxaparin 60 mg Syringe SC SCH ×2 (10:53→17:40)
[2017-09-16] MEDS ORDERED: Sodium Chloride 0.9% 500 ML IV ONE (15:55)
[2017-09-16] MEDS ORDERED: Albumin Human 25% (12.5 gm/50 ml) IV SCH (15:56)
--- NOTE | 2017-09-16 16:20 | CP.PCM.PN ---
Subjective - Date & Time of Evaluation Date of Evaluation: 09/16/17 Time of Evaluation: 07:20 - Subjective Subjective: clinically same Objective - Vital Signs/Intake and Output Vital Signs (last 24 hours): Temp Pulse Resp BP Pulse Ox 98.4 F 80 20 88/55 L 96 09/16/17 15:00 09/16/17 15:00 09/16/17 15:00 09/16/17 15:00 09/16/17 15:00 Intake and Output: 09/16/17 09/16/17 06:59 18:59 Intake Total 1240 Balance 1240 - Medications Medications: Current Medications Docusate Sodium (Colace) 100 mg PO BID [facility] Last Admin: 09/16/17 10:53 Dose: 100 mg Enoxaparin Sodium (Lovenox) 56 mg SC BID [facility] Last Admin: 09/16/17 10:53 Dose: 56 mg Dextrose/Sodium Chloride (Dextrose 5%/0.45% Ns 1000 Ml) 1,000 mls @ 80 mls/hr IV .[id number] [facility] Last Admin: 09/16/17 05:19 Dose: 80 mls/hr Sodium Chloride (Sodium Chloride 0.9%) 500 mls @ 1,000 mls/hr IV .Q30M [facility] Stop: 09/16/17 16:24 Albumin Human (Albumin Human 25% (12.5 Gm/50 Ml)) 50 mls @ 50 mls/hr IV Q6H [facility] Stop: 09/17/17 17:59 Metoprolol Tartrate (Lopressor) 12.5 mg PO BID [facility] Last Admin: 09/16/17 10:55 Dose: Not Given Pantoprazole Sodium (Protonix Inj) 40 mg IVP DAILY [facility] Last Admin: 09/16/17 10:53 Dose: 40 mg Rifaximin (Xifaxan) 550 mg PO BID [facility] Last Admin: 09/16/17 10:53 Dose: 550 mg Senna/Docusate Sodium (Senokot S 50 Mg-8.6 Mg) 1 tab PO BID [facility] Last Admin: 09/16/17 10:52 Dose: 1 tab Vitamin A (Vitamin A & D Oint Ud Foilpak) 0.5 ea TOP Q4 [facility] Last Admin: 09/16/17 12:36 Dose: 0.5 ea - Labs Labs: 09/14/17 06:16 09/14/17 06:16 PT 29.3 SECONDS (9.7-12.2) H 09/11/17 16:28 INR 2.5 09/11/17 16:28 APTT 36 SECONDS (21-34) H 09/11/17 16:28 - Constitutional Appears: Well - Head Exam Head Exam: ATRAUMATIC, NORMAL INSPECTION, NORMOCEPHALIC - Eye Exam Eye Exam: EOMI, Normal appearance, PERRL Pupil Exam: NORMAL ACCOMODATION, PERRL - ENT Exam ENT Exam: Mucous Membranes Moist, Normal Exam - Neck Exam Neck Exam: Full ROM, Normal Inspection. absent: Lymphadenopathy - Respiratory Exam Respiratory Exam: Decreased Breath Sounds - Cardiovascular Exam Cardiovascular Exam: REGULAR RHYTHM, +S1, +S2
--- NOTE | 2017-09-17 00:06 | PN ---
DATE: LOCATION: Room 359. SUBJECTIVE: This is a 57-year-old female with recent evaluation for metastatic breast carcinoma with liver and bone metastasis and is now being followed closely for metabolic management. She also remains clinically and biochemically euthyroid at this time. LABORATORY DATA: Her latest chemistries showed a BUN of 23, sodium 143, potassium 3.2, chloride 111, CO2 of 25, glucose 137, and creatinine 0.8. Her latest thyroid study showed T4 of 6.0 with a free T4 of 1.24, and a TSH of 3.03. PLAN: There is no indication at this time for any kind of thyroid pharmacotherapy. We will continue with the serial chemistries and supplement accordingly as needed. We will also obtain serial thyroid studies accordingly. We will follow. Diane Kuhn MD
[2017-09-17] MEDS: Vitamins A & D Oint UD Foilpak TOP SCH ×6 (04:00→21:51)
[2017-09-17] MEDS: Dextrose 5%/0.45% NS 1,000 ML IV SCH (06:45)
[2017-09-17] MEDS: Docusate-Senna 50 mg-8.6 mg Tab PO SCH ×2 (10:05→17:52)
[2017-09-17] MEDS: Enoxaparin 60 mg Syringe SC SCH ×2 (10:06→17:51)
--- NOTE | 2017-09-17 13:23 | PN ---
DATE: ENDOCRINOLOGY FOLLOWUP NOTE LOCATION: Room 359. SUBJECTIVE: This is a 57-year-old female with metastatic breast carcinoma and really already terminally ill at this time and is now being followed closely for metabolic management. She remains clinically and biochemically euthyroid at this time as noted. Her latest thyroid study showed a T4 of 6.0 with a TSH of 3.03 and a free T4 of 1.24. Her latest chemistry showed BUN of 20, sodium 144, potassium 3.7, chloride 113, CO2 24, glucose 131 and creatinine 0.8. Her serum cortisol level is 25.8. PLAN: So at this time, we will continue the present medical supportive management at this time as ordered. We will obtain serum chemistries and thyroid studies as indicated. We will follow with you. Diane Kuhn MD
--- NOTE | 2017-09-17 16:34 | CP.PCM.PN ---
Subjective - Date & Time of Evaluation Date of Evaluation: 09/17/17 Time of Evaluation: 07:20 - Subjective Subjective: clinically same Objective - Vital Signs/Intake and Output Vital Signs (last 24 hours): Temp Pulse Resp BP Pulse Ox 97.9 F 85 20 119/76 97 09/17/17 08:07 09/17/17 08:07 09/17/17 08:07 09/17/17 08:07 09/17/17 08:07 Intake and Output: 09/17/17 09/17/17 06:59 18:59 Intake Total 2170 780 Output Total 2 Balance 2170 778 - Medications Medications: Current Medications Docusate Sodium (Colace) 100 mg PO BID [facility] Last Admin: 09/17/17 10:06 Dose: 100 mg Enoxaparin Sodium (Lovenox) 56 mg SC BID [facility] Last Admin: 09/17/17 10:06 Dose: 56 mg Albumin Human (Albumin Human 25% (12.5 Gm/50 Ml)) 50 mls @ 50 mls/hr IV Q6H [facility] Stop: 09/17/17 17:59 Last Admin: 09/17/17 10:05 Dose: 50 mls/hr Metoprolol Tartrate (Lopressor) 12.5 mg PO BID [facility] Last Admin: 09/17/17 10:06 Dose: 12.5 mg Pantoprazole Sodium (Protonix Inj) 40 mg IVP DAILY [facility] Last Admin: 09/17/17 10:05 Dose: 40 mg Rifaximin (Xifaxan) 550 mg PO BID [facility] Last Admin: 09/17/17 10:05 Dose: 550 mg Senna/Docusate Sodium (Senokot S 50 Mg-8.6 Mg) 1 tab PO BID [facility] Last Admin: 09/17/17 10:05 Dose: 1 tab Vitamin A (Vitamin A & D Oint Ud Foilpak) 0.5 ea TOP Q4 [facility] Last Admin: 09/17/17 12:16 Dose: 0.5 ea - Labs Labs: 09/14/17 06:16 09/14/17 06:16 PT 29.3 SECONDS (9.7-12.2) H 09/11/17 16:28 INR 2.5 09/11/17 16:28 APTT 36 SECONDS (21-34) H 09/11/17 16:28 - Constitutional Appears: Well - Head Exam Head Exam: ATRAUMATIC, NORMAL INSPECTION, NORMOCEPHALIC - Eye Exam Eye Exam: EOMI, Normal appearance, PERRL Pupil Exam: NORMAL ACCOMODATION, PERRL - ENT Exam ENT Exam: Mucous Membranes Moist, Normal Exam - Neck Exam Neck Exam: Full ROM, Normal Inspection. absent: Lymphadenopathy - Respiratory Exam Respiratory Exam: Decreased Breath Sounds - Cardiovascular Exam Cardiovascular Exam: REGULAR RHYTHM, +S1, +S2 - GI/Abdominal Exam GI & Abdominal Exam: Soft, Diminished Bowel Sounds - Rectal Exam Rectal Exam: Deferred
[2017-09-18] MEDS: Vitamins A & D Oint UD Foilpak TOP SCH ×6 (00:15→20:45)
[2017-09-18] MEDS: Docusate-Senna 50 mg-8.6 mg Tab PO SCH ×2 (10:20→17:09)
[2017-09-18] MEDS: Enoxaparin 60 mg Syringe SC SCH ×2 (10:20→17:08)
--- NOTE | 2017-09-18 14:59 | CP.PCM.PN ---
Subjective - Date & Time of Evaluation Date of Evaluation: 09/18/17 Time of Evaluation: 07:20 - Subjective Subjective: clinically same Objective - Vital Signs/Intake and Output Vital Signs (last 24 hours): Temp Pulse Resp BP Pulse Ox 98 F 80 18 128/86 99 09/18/17 00:00 09/18/17 00:00 09/18/17 00:00 09/18/17 00:00 09/18/17 00:00 Intake and Output: 09/18/17 09/18/17 06:59 18:59 Intake Total 990 120 Balance 990 120 - Medications Medications: Current Medications Docusate Sodium (Colace) 100 mg PO BID [facility] Last Admin: 09/18/17 10:20 Dose: 100 mg Enoxaparin Sodium (Lovenox) 56 mg SC BID [facility] Last Admin: 09/18/17 10:20 Dose: 56 mg Dextrose/Sodium Chloride (Dextrose 5%/0.45% Ns 1000 Ml) 1,000 mls @ 80 mls/hr IV .[id number] [facility] Metoprolol Tartrate (Lopressor) 12.5 mg PO BID [facility] Last Admin: 09/18/17 10:20 Dose: 12.5 mg Pantoprazole Sodium (Protonix Inj) 40 mg IVP DAILY [facility] Last Admin: 09/18/17 10:20 Dose: 40 mg Rifaximin (Xifaxan) 550 mg PO BID [facility] Last Admin: 09/18/17 10:20 Dose: 550 mg Senna/Docusate Sodium (Senokot S 50 Mg-8.6 Mg) 1 tab PO BID [facility] Last Admin: 09/18/17 10:20 Dose: 1 tab Vitamin A (Vitamin A & D Oint Ud Foilpak) 0.5 ea TOP Q4 [facility] Last Admin: 09/18/17 12:15 Dose: 0.5 ea - Labs Labs: 09/14/17 06:16 09/14/17 06:16 PT 29.3 SECONDS (9.7-12.2) H 09/11/17 16:28 INR 2.5 09/11/17 16:28 APTT 36 SECONDS (21-34) H 09/11/17 16:28 - Constitutional Appears: Well - Head Exam Head Exam: ATRAUMATIC, NORMAL INSPECTION, NORMOCEPHALIC - Eye Exam Eye Exam: EOMI, Normal appearance, PERRL Pupil Exam: NORMAL ACCOMODATION, PERRL - ENT Exam ENT Exam: Mucous Membranes Moist, Normal Exam - Neck Exam Neck Exam: Full ROM, Normal Inspection. absent: Lymphadenopathy - Respiratory Exam Respiratory Exam: Decreased Breath Sounds - Cardiovascular Exam Cardiovascular Exam: REGULAR RHYTHM, +S1, +S2 - GI/Abdominal Exam GI & Abdominal Exam: Soft, Diminished Bowel Sounds - Rectal Exam Rectal Exam: Deferred
[2017-09-18] MEDS: Dextrose 5%/0.45% NS 1,000 ML IV SCH (15:01)
--- NOTE | 2017-09-18 17:53 | PN ---
LOCATION: Room 359. SUBJECTIVE: This is a 57-year-old female with metastatic breast carcinoma, awaiting hospice evaluation and transfer and is now being followed closely for metabolic management. She remains clinically and biochemically euthyroid at this time and also is terminally ill as noted otherwise. LABORATORY DATA: Her latest chemistries showed a BUN of 20, sodium 144, potassium 3.7, chloride 113, CO2 of 24, glucose 131, and creatinine 0.8. Her latest thyroid study showed a T4 of 6.0 with a TSH of 3.03 and a total T3 of 0.84 consistent with the so called acute sick euthyroid syndrome. There is no indication at this time for any kind of thyroid pharmacotherapy. We will repeat the thyroid studies in the morning and also repeat the chemistries and supplement accordingly as needed. We will follow with you. Diane Kuhn MD
[2017-09-18 19:01] LABS: TSI <89 % baseline (<140)
[2017-09-19] MEDS: Vitamins A & D Oint UD Foilpak TOP SCH ×6 (00:18→21:59)
[2017-09-19] MEDS: Dextrose 5%/0.45% NS 1,000 ML IV SCH ×2 (03:25→17:53)
[2017-09-19 06:48] LABS: BASO % 0.6 % (0.0-2.0); HEMOGLOBIN 9.5 g/dL (11.0-16.0); LYMPH # 1.4 K/uL (1.0-4.3); LYMPH % 24.8 % (20.0-40.0); MEAN CELL VOLUME 89.3 fL (81.0-99.0); MEAN CORPUSCULAR HEMOGLOBIN 30.8 pg (27.0-31.0); MEAN CORPUSCULAR HGB CONC 34.5 g/dL (33.0-37.0); MEAN PLATELET VOLUME 10.8 fL (7.2-11.7); MONO # 1.4 K/uL (0.0-0.8); MONO % 25.5 % (0.0-10.0); NEUT # 2.7 K/uL (1.8-7.0); NEUT % 49.1 % (50.0-75.0); NRBC % 0.9 % (0.0-2.0); PLATELET COUNT 74 K/uL (130-400); RBC 3.07 Mil/uL (3.80-5.20); RED CELL DISTRIBUTION WIDTH 15.6 % (11.5-14.5)
[2017-09-19 06:55] LABS: ALB/GLOB RATIO 0.7 (1.0-2.1); ALT/SGPT 105 U/L (9-52); AST/SGOT 245 U/L (14-36); BLOOD UREA NITROGEN 10 mg/dL (7-17); CALCIUM 6.7 mg/dl (8.6-10.4); GFR AFRICAN-AMERICAN > 60; GFR NON-AFRICAN AMERICAN > 60
[2017-09-19 06:56] LABS: WHITE BLOOD COUNT 5.5 K/uL (4.8-10.8)
[2017-09-19 07:10] LABS: T4 6.28 ug/dL (5.5-11.0)
[2017-09-19 08:58] LABS: BANDS 14 % (0-2); MYELOCYTE 1 % (0-0); TOTAL CELLS COUNTED 100
[2017-09-19 08:59] LABS: LYMPHOCYTE 30 % (20-40); MONOCYTE 23 % (0-10); NEUTROPHIL 32 % (50-75); PLATELET ESTIMATE DECREASED (NORMAL)
[2017-09-19 09:00] LABS: ANISOCYTOSIS SLIGHT; POIKILOCYTOSIS SLIGHT
[2017-09-19 09:01] LABS: BURR CELLS SLIGHT; HYPOCHROMIC SLIGHT; TARGET CELLS SLIGHT
[2017-09-19 09:02] LABS: LARGE PLATELETS PRESENT
[2017-09-19 09:03] LABS: GIANT PLATELETS PRESENT
[2017-09-19 09:07] LABS: OVALOCYTES SLIGHT
[2017-09-19] MEDS: Enoxaparin 60 mg Syringe SC SCH ×2 (10:24→17:50)
[2017-09-19] MEDS: Docusate-Senna 50 mg-8.6 mg Tab PO SCH ×2 (10:27→17:51)
--- NOTE | 2017-09-19 16:43 | RAD ---
HISTORY: r/o pneumonia COMPARISON: Chest x-ray performed 09/11/17. TECHNIQUE: Chest, one view. FINDINGS: Examination limited by habitus and patient obliquity. Right sided mediport tip extends to the cavoatrial junction. LUNGS: Mild pulmonary venous congestion. Left basilar atelectasis or infiltrate. Please note that chest x-ray has limited sensitivity for the detection of pulmonary masses. PLEURA: No significant pleural effusion identified. No definite pneumothorax . CARDIOVASCULAR: Heart size appears top normal. OSSEOUS STRUCTURES: Degenerative changes of the spine. VISUALIZED UPPER ABDOMEN: Unremarkable. OTHER FINDINGS: None. IMPRESSION: Mild pulmonary venous congestion. Left basilar atelectasis or infiltrate. Right sided mediport tip extends to the cavoatrial junction.
--- NOTE | 2017-09-19 20:04 | PN ---
DATE: ENDO FOLLOWUP NOTE Room 359 SUBJECTIVE: This is a 57-year-old female with metastatic breast carcinoma with clinical and metabolic deterioration as she is really terminally ill at this time awaiting hospice placement. Her glycemic levels are fluctuating, but improved, and the latest glucose level is 128 mg/dL. LABORATORY DATA: The latest chemistry showed a BUN of 10, sodium 136, potassium 2.8, chloride 109, CO2 of 22, glucose 124. Creatinine 0.7. She continues to have elevated liver transaminases as noted. Her repeat thyroid study showed a T4 of 6.28 with a TSH of 5.50 indicative of subclinical hypothyroidism. However, with her current medical and clinical condition, there is really no indication or urgency for levothyroxine replacement therapy as needed. We will obtain serum chemistries and supplement accordingly as needed. We will follow. Diane Kuhn MD
--- NOTE | 2017-09-19 20:39 | CP.PCM.PN ---
Subjective - Date & Time of Evaluation Date of Evaluation: 09/19/17 Objective - Vital Signs/Intake and Output Vital Signs (last 24 hours): Temp Pulse Resp BP Pulse Ox 98.7 F 92 H 20 115/77 97 09/19/17 16:05 09/19/17 16:05 09/19/17 16:05 09/19/17 16:05 09/19/17 16:05 - Medications Medications: Current Medications Docusate Sodium (Colace) 100 mg PO BID [facility] Last Admin: 09/19/17 17:56 Dose: 100 mg Enoxaparin Sodium (Lovenox) 56 mg SC BID [facility] Last Admin: 09/19/17 17:50 Dose: 56 mg Meropenem 500 mg/ Sodium (Chloride) 100 mls @ 100 mls/hr IVPB Q8 [facility] Dextrose/Sodium Chloride (Dextrose 5%/0.45% Ns 1000 Ml) 1,000 mls @ 50 mls/hr IV .Q20H [facility] Last Admin: 09/19/17 17:53 Dose: 50 mls/hr Metoprolol Tartrate (Lopressor) 12.5 mg PO BID [facility] Last Admin: 09/19/17 17:56 Dose: 12.5 mg Pantoprazole Sodium (Protonix Ec Tab) 40 mg PO DAILY [facility] Rifaximin (Xifaxan) 550 mg PO BID [facility] Last Admin: 09/19/17 17:51 Dose: 550 mg Senna/Docusate Sodium (Senokot S 50 Mg-8.6 Mg) 1 tab PO BID [facility] Last Admin: 09/19/17 17:51 Dose: 1 tab Vitamin A (Vitamin A & D Oint Ud Foilpak) 0.5 ea TOP Q4 [facility] Last Admin: 09/19/17 17:51 Dose: 0.5 ea - Labs Labs: 09/19/17 06:34 09/19/17 06:34 PT 29.3 SECONDS (9.7-12.2) H 09/11/17 16:28 INR 2.5 09/11/17 16:28 APTT 36 SECONDS (21-34) H 09/11/17 16:28
[2017-09-19] MEDS ORDERED: Sodium Phosphate 15 MMOLE in Sodium Chloride 0.9% 250 ML IVPB ONE (20:45)
[2017-09-19] MEDS: Magnesium Sulfate 1 gm in D5W 1 GM/100 ML BAG IVPB SCH ×2 (21:57→22:45)
[2017-09-19] MEDS: Meropenem 500 MG in Sodium Chloride 0.9% 100 ML IVPB SCH (22:02)
--- NOTE | 2017-09-19 22:28 | CP.PCM.CON ---
History of Present Illness - History of Present Illness History of Present Illness: INFECTIOUS DISEASE CONSULT; DICTATED; DICTATION #[id number]. sEE ORDER SHEET. IMPRESSION ; -SEPSIS WITH BANDEMIA -SOURCE NOT CLEAR LLL PNEUMONIA ? ASPIRATIO VS NOSOCOMIAL PNEUMONIA. - R/O CATHETER SEPSIS ( +VE [facility]ERRE-CATH ) - METASTATIC BREAST CA WITH OSSEOUS/LIVER METASTASES - ADVANCED CIRRHOSIS/ENCEPHALOPATHY - RT. HYDRONEPHROSIS. PLAN; PANCULTURES cHEST X-RAY DC iv rOCEPHIN sTART iv MEROPENEM 500 MG EVERY 8 HOURLY 09/19/17. FOLLOW-UP BLOOD CULTURES . fOLLOW-UP cbc WITH DIFFERENTIAL/CMP. WILL FOLLOW ALONG WITH YOU. PATIENT PROBABLY FOR HOSPICE CARE PER NOTES. Past Patient History - Past Medical History & Family History Past Medical History?: Yes - Past Social History Smoking Status: Light Smoker < 10 Cigarettes Daily - CARDIAC Hx Hypertension: Yes - PULMONARY Hx Respiratory Disorders: No - NEUROLOGICAL HX Cerebrovascular Accident: Yes - HEENT Hx HEENT Problems: No - RENAL Hx Chronic Kidney Disease: No - ENDOCRINE/METABOLIC Hx Endocrine Disorders: No - HEMATOLOGICAL/ONCOLOGICAL Hx Blood Disorders: Yes Hx Blood Transfusions: Yes Hx Blood Transfusion Reaction: No Hx Cancer: Yes (BREAST LEFT) Hx Chemotherapy: Yes Hx Metastesis: Yes (LIVER) - INTEGUMENTARY Hx Dermatological Problems: Yes Other/Comment: SCARS FROM ANN IN CHILDHOOD/ABDOMEN - MUSCULOSKELETAL/RHEUMATOLOGICAL Hx Falls: No - GASTROINTESTINAL Hx Bowel Surgery: Yes Hx Colostomy: Yes (reversed) Hx Gastritis: Yes - GENITOURINARY/GYNECOLOGICAL Hx Genitourinary Disorders: Yes Hx Reproductive Disorders: Yes - PSYCHIATRIC Hx Substance Use: No - SURGICAL HISTORY Hx Surgeries: Yes Hx Hysterectomy: Yes Hx Mastectomy: Yes (LEFT) Other/Comment: liver biopsy. portacath insertion 07/2015 - ANESTHESIA Hx Anesthesia: Yes Hx Anesthesia Reactions: No Hx Malignant Hyperthermia: No Meds Home Medications: Home Medication List Medication Instructions Recorded Confirmed Type Docusate Sodium/Sennosides A 1 tab PO BID tab 09/16/17 Rx [Senokot S 50 MG-8.6 MG] Docusate [Colace] 100 mg PO BID cap 09/16/17 Rx Enoxaparin [Lovenox] 56 mg SC BID syr 09/16/17 Rx Metoprolol Tartrate [Lopressor] 12.5 mg PO BID tab 09/16/17 Rx Pantoprazole [Protonix Inj] 40 mg IVP DAILY vial 09/16/17 Rx Vitamin A & D [Vitamin A & D Oint 0.5 ea TOP Q4 fp 09/16/17 Rx UD Foilpak] rifAXIMin [Xifaxan] 550 mg PO BID tab 09/16/17 Rx Allergies/Adverse Reactions: Allergies Allergy/AdvReac Type Severity Reaction Status Date / Time No Known Allergies Allergy Verified 08/15/15 09:57 - Medications Medications: Current Medications Docusate Sodium (Colace) 100 mg PO BID [facility] Last Admin: 09/19/17 17:56 Dose: 100 mg Enoxaparin Sodium (Lovenox) 56 mg SC BID [facility] Last Admin: 09/19/17 17:50 Dose: 56 mg Meropenem 500 mg/ Sodium (Chloride) 100 mls @ 100 mls/hr IVPB Q8 [facility] Last Admin: 09/19/17 22:02 Dose: 100 mls/hr Dextrose/Sodium Chloride (Dextrose 5%/0.45% Ns 1000 Ml) 1,000 mls @ 50 mls/hr IV .Q20H [facility] Last Admin: 09/19/17 17:53 Dose: 50 mls/hr Sodium Phosphate 15 mmole/ (Sodium Chloride) 255 mls @ 50 mls/hr IVPB .Q5H6M ONE Stop: 09/20/17 01:50 Potassium Chloride (Potassium Chloride 20 Meq/100 Ml) 20 meq in 100 mls @ 50 mls/hr IVPB ONCE ONE Stop: 09/20/17 01:59 Metoprolol Tartrate (Lopressor) 12.5 mg PO BID [facility] Last Admin: 09/19/17 17:56 Dose: 12.5 mg Pantoprazole Sodium (Protonix Ec Tab) 40 mg PO DAILY [facility] Rifaximin (Xifaxan) 550 mg PO BID [facility] Last Admin: 09/19/17 17:51 Dose: 550 mg Senna/Docusate Sodium (Senokot S 50 Mg-8.6 Mg) 1 tab PO BID [facility] Last Admin: 09/19/17 17:51 Dose: 1 tab Vitamin A (Vitamin A & D Oint Ud Foilpak) 0.5 ea TOP Q4 [facility] Last Admin: 09/19/17 21:59 Dose: 0.5 ea Results - Vital Signs Recent Vital Signs: Last Vital Signs Temp 98.7 F 09/19/17 16:05 Pulse 92 H 09/19/17 16:05 Resp 20 09/19/17 16:05 BP 115/77 09/19/17 16:05 Pulse Ox 97 09/19/17 16:05 - Labs Result Diagrams: 09/19/17 06:34 09/19/17 06:34 Labs: Laboratory Results - last 24 hr 09/19/17 09/19/17 06:34 06:34 WBC 5.5 D RBC 3.07 L Hgb 9.5 L Hct 27.4 L MCV 89.3 MCH 30.8 MCHC 34.5 RDW 15.6 H Plt Count 74 L MPV 10.8 Neut % (Auto) 49.1 L Lymph % (Auto) 24.8 Evangeline % (Auto) 25.5 H Eos % (Auto) 0.0 Baso % (Auto) 0.6 Neut # (Auto) 2.7 Lymph # (Auto) 1.4 Evangeline # (Auto) 1.4 H Eos # (Auto) 0.0 Baso # (Auto) 0.0 Neutrophils % (Manual) 32 L Band Neutrophils % 14 H* Lymphocytes % (Manual) 30 Monocytes % (Manual) 23 H Myelocytes % 1 H Platelet Estimate Decreased L Large Platelets Present Giant Platelets Present Hypochromasia (manual) Slight Poikilocytosis (manual Slight Basophilic Stippling Slight Anisocytosis (manual) Slight Target Cells Slight Ovalocytes Slight Ji Cells Slight Sodium 136 Potassium 2.8 L Chloride 109 H Carbon Dioxide 22 Anion Gap 8 L BUN 10 Creatinine 0.7 Est GFR ( Amer) > 60 Est GFR (Non-Af Amer) > 60 Random Glucose 124 H Calcium 6.7 L Phosphorus 1.7 L Magnesium 1.5 L Total Bilirubin 4.7 H AST 245 H D ALT 105 H D Alkaline Phosphatase 178 H Total Protein 5.2 L Albumin 2.0 L Globulin 3.1 Albumin/Globulin Ratio 0.7 L Thyroxine (T4) 6.28 TSH 3rd Generation 5.50 H
[2017-09-19] MEDS ORDERED: Magnesium Sulfate 1 gm in D5W 1 GM/100 ML BAG IVPB SCH (23:00)
[2017-09-20] MEDS: Vitamins A & D Oint UD Foilpak TOP SCH ×6 (00:43→21:14)
[2017-09-20] MEDS: Meropenem 500 MG in Sodium Chloride 0.9% 100 ML IVPB SCH ×3 (05:30→21:13)
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
[2017-09-20] MEDS: Enoxaparin 60 mg Syringe SC SCH ×2 (10:06→17:45)
[2017-09-20] MEDS: Docusate-Senna 50 mg-8.6 mg Tab PO SCH ×2 (10:07→17:45)
[2017-09-20] MEDS: Pantoprazole 40 mg EC Tab PO SCH (10:07)
[2017-09-20] MEDS: Dextrose 5%/0.45% NS 1,000 ML IV SCH (14:22)
--- NOTE | 2017-09-20 17:05 | CP.PCM.PN ---
Subjective - Date & Time of Evaluation Date of Evaluation: 09/20/17 Time of Evaluation: 07:20 - Subjective Subjective: clinically same Objective - Vital Signs/Intake and Output Vital Signs (last 24 hours): Temp Pulse Resp BP Pulse Ox 98.2 F 76 20 101/61 96 09/20/17 16:00 09/20/17 16:00 09/20/17 16:00 09/20/17 16:00 09/20/17 16:00 Intake and Output: 09/20/17 09/20/17 06:59 18:59 Intake Total 450 450 Balance 450 450 - Medications Medications: Current Medications Docusate Sodium (Colace) 100 mg PO BID [facility] Last Admin: 09/20/17 10:11 Dose: 100 mg Enoxaparin Sodium (Lovenox) 56 mg SC BID [facility] Last Admin: 09/20/17 10:06 Dose: 56 mg Meropenem 500 mg/ Sodium (Chloride) 100 mls @ 100 mls/hr IVPB Q8 [facility] Last Admin: 09/20/17 13:50 Dose: 100 mls/hr Dextrose/Sodium Chloride (Dextrose 5%/0.45% Ns 1000 Ml) 1,000 mls @ 50 mls/hr IV .Q20H [facility] Last Admin: 09/20/17 14:22 Dose: Not Given Levothyroxine Sodium (Synthroid) 25 mcg PO DAILY@0630 [facility] Metoprolol Tartrate (Lopressor) 12.5 mg PO BID [facility] Last Admin: 09/20/17 10:07 Dose: 12.5 mg Pantoprazole Sodium (Protonix Ec Tab) 40 mg PO DAILY [facility] Last Admin: 09/20/17 10:07 Dose: 40 mg Rifaximin (Xifaxan) 550 mg PO BID [facility] Last Admin: 09/20/17 10:07 Dose: 550 mg Senna/Docusate Sodium (Senokot S 50 Mg-8.6 Mg) 1 tab PO BID [facility] Last Admin: 09/20/17 10:07 Dose: 1 tab Vitamin A (Vitamin A & D Oint Ud Foilpak) 0.5 ea TOP Q4 [facility] Last Admin: 09/20/17 13:49 Dose: Not Given - Labs Labs: 09/19/17 06:34 09/19/17 06:34 PT 29.3 SECONDS (9.7-12.2) H 09/11/17 16:28 INR 2.5 09/11/17 16:28 APTT 36 SECONDS (21-34) H 09/11/17 16:28 - Constitutional Appears: Well - Head Exam Head Exam: ATRAUMATIC, NORMAL INSPECTION, NORMOCEPHALIC - Eye Exam Eye Exam: EOMI, Normal appearance, PERRL Pupil Exam: NORMAL ACCOMODATION, PERRL - ENT Exam ENT Exam: Mucous Membranes Moist, Normal Exam - Neck Exam Neck Exam: Full ROM, Normal Inspection. absent: Lymphadenopathy - Respiratory Exam Respiratory Exam: Decreased Breath Sounds - Cardiovascular Exam Cardiovascular Exam: REGULAR RHYTHM, +S1, +S2 - GI/Abdominal Exam GI & Abdominal Exam: Soft, Diminished Bowel Sounds - Rectal Exam Rectal Exam: Deferred Assessment and Plan - Assessment and Plan (Free Text) Plan: bladimir meropenem id onc case more robert spoke to sister who has discussed with staff /registry np about hoispice poor prognosis follow upwith dr. parnell
[2017-09-21] MEDS: Vitamins A & D Oint UD Foilpak TOP SCH ×7 (00:51→21:54)
[2017-09-21] MEDS: Levothyroxine 25 MCG TAB PO SCH (05:53)
[2017-09-21] MEDS: Meropenem 500 MG in Sodium Chloride 0.9% 100 ML IVPB SCH ×3 (05:53→21:53)
[2017-09-21] MEDS: Dextrose 5%/0.45% NS 1,000 ML IV SCH ×2 (06:32→09:43)
[2017-09-21 07:00] LABS: BASO % 0.6 % (0.0-2.0); HEMOGLOBIN 9.4 g/dL (11.0-16.0); LYMPH # 1.6 K/uL (1.0-4.3); LYMPH % 22.6 % (20.0-40.0); MEAN CELL VOLUME 89.5 fL (81.0-99.0); MEAN CORPUSCULAR HEMOGLOBIN 31.1 pg (27.0-31.0); MEAN CORPUSCULAR HGB CONC 34.7 g/dL (33.0-37.0); MONO # 1.3 K/uL (0.0-0.8); MONO % 18.7 % (0.0-10.0); NEUT # 4.1 K/uL (1.8-7.0); NEUT % 58.1 % (50.0-75.0); NRBC % 0.5 % (0.0-2.0); RBC 3.01 Mil/uL (3.80-5.20); RED CELL DISTRIBUTION WIDTH 16.1 % (11.5-14.5); WHITE BLOOD COUNT 7.1 K/uL (4.8-10.8)
--- NOTE | 2017-09-21 07:04 | PN ---
DATE: LOCATION: Room 359. SUBJECTIVE: This is a 57-year-old female with metastatic breast carcinoma, now being followed closely for metabolic management. Oral intake remains very suboptimal, minimal at this time as she is terminally ill as noted. LABORATORY DATA: Her latest chemistries showed a BUN of 10, sodium 136, potassium 2.8, chloride 109, CO2 22, glucose 122, creatinine 0.7. Her latest thyroid study showed T4 of 6.28, with TSH of 5.50. She remains clinically euthyroid at this time and biochemically very early subclinical hypothyroidism. She's receiving comfort measures_for her current medical oncologic condition. With uncertain risk factors for underlying cardiovascular disorders, so will start very low L-T4_ replacement therapy with initial dosing of 25 mcg once daily as ordered. We will obtain serial chem's, and supplements only as needed. We will obtain serial thyroid studies and titrate the L-T4 dose accordingly. Diane Kuhn MD MTDD
[2017-09-21 07:27] LABS: ALB/GLOB RATIO 0.6 (1.0-2.1); ALBUMIN 1.9 g/dL (3.5-5.0); ALT/SGPT 95 U/L (9-52); AST/SGOT 220 U/L (14-36); BLOOD UREA NITROGEN 10 mg/dL (7-17); GFR AFRICAN-AMERICAN > 60; GFR NON-AFRICAN AMERICAN > 60
[2017-09-21] MEDS: Docusate-Senna 50 mg-8.6 mg Tab PO SCH ×2 (09:42→17:35)
[2017-09-21] MEDS: Enoxaparin 60 mg Syringe SC SCH ×2 (09:43→17:36)
[2017-09-21] MEDS: Pantoprazole 40 mg EC Tab PO SCH (09:43)
--- NOTE | 2017-09-21 13:07 | CP.PCM.PN ---
Subjective - Date & Time of Evaluation Date of Evaluation: 09/21/17 Time of Evaluation: 13:06 - Subjective Subjective: Pulmonary consult, covering Dr. Willis Patient is seen and examined at bedside today. She is resting comfortably with no complaints. Breathing is "okay" with slight improvement than yesterday. Denies fever, chills, chest pain, palpitations, cough, wheezing. Objective - Vital Signs/Intake and Output Vital Signs (last 24 hours): Temp Pulse Resp BP Pulse Ox 98.4 F 69 20 98/64 L 98 09/21/17 07:55 09/21/17 12:19 09/21/17 07:55 09/21/17 07:55 09/21/17 12:19 Intake and Output: 09/21/17 09/21/17 06:59 18:59 Intake Total 650 900 Balance 650 900 - Medications Medications: Current Medications Docusate Sodium (Colace) 100 mg PO BID [facility] Last Admin: 09/21/17 09:42 Dose: Not Given Enoxaparin Sodium (Lovenox) 56 mg SC BID [facility] Last Admin: 09/21/17 09:43 Dose: 56 mg Meropenem 500 mg/ Sodium (Chloride) 100 mls @ 100 mls/hr IVPB Q8 [facility] Last Admin: 09/21/17 05:53 Dose: 100 mls/hr Dextrose/Sodium Chloride (Dextrose 5%/0.45% Ns 1000 Ml) 1,000 mls @ 50 mls/hr IV .Q20H [facility] Last Admin: 09/21/17 09:43 Dose: Not Given Levothyroxine Sodium (Synthroid) 25 mcg PO DAILY@0630 [facility] Last Admin: 09/21/17 05:53 Dose: 25 mcg Metoprolol Tartrate (Lopressor) 12.5 mg PO BID [facility] Last Admin: 09/21/17 09:44 Dose: Not Given Pantoprazole Sodium (Protonix Ec Tab) 40 mg PO DAILY [facility] Last Admin: 09/21/17 09:43 Dose: 40 mg Rifaximin (Xifaxan) 550 mg PO BID [facility] Last Admin: 09/21/17 09:42 Dose: 550 mg Senna/Docusate Sodium (Senokot S 50 Mg-8.6 Mg) 1 tab PO BID [facility] Last Admin: 09/21/17 09:42 Dose: Not Given Vitamin A (Vitamin A & D Oint Ud Foilpak) 0.5 ea TOP Q4 [facility] Last Admin: 09/21/17 12:41 Dose: 0.5 ea - Labs Labs: 09/21/17 06:57 09/21/17 06:57 PT 29.3 SECONDS (9.7-12.2) H 09/11/17 16:28 INR 2.5 09/11/17 16:28 APTT 36 SECONDS (21-34) H 09/11/17 16:28 - Constitutional Appears: Well, Non-toxic, No Acute Distress - Head Exam Head Exam: ATRAUMATIC, NORMOCEPHALIC - Eye Exam Eye Exam: EOMI, Normal appearance Pupil Exam: PERRL - ENT Exam ENT Exam: Mucous Membranes Moist - Neck Exam Neck Exam: Full ROM. absent: Lymphadenopathy, Meningismus, Tenderness, Thyromegaly - Cardiovascular Exam Cardiovascular Exam: +S1, +S2. absent: Diastolic murmur, Murmur - GI/Abdominal Exam GI & Abdominal Exam: Soft, Normal Bowel Sounds. absent: Distended, Tenderness - Extremities Exam Extremities Exam: Full ROM. absent: Joint Swelling, Pedal Edema - Neurological Exam Neurological Exam: Alert, Awake, CN II-XII Intact, Oriented x3 Assessment and Plan (1) Elevated d-dimer Assessment & Plan: Patient has been on Lovonox 56mg BID Will order VQ scan to rule out PE Venous doppler will be ordered to rule out DVT Based on this result, will decide on dose of lovonox needed Status: Acute (2) Aspiration pneumonia Assessment & Plan: Afebrile No leukocytosis Adequate saturation Continue meropenem Pulmonary toileting Out of bed to chair Status: Acute (3) Sepsis Assessment & Plan: Continue IV antibiotics Blood culture has been negative Trend WBC count and fever curve Status: Acute (4) Pulmonary venous congestion Assessment & Plan: No evidence of fluid overload on physical exam Status: Acute (5) Metastatic breast cancer Assessment & Plan: Metastatic breast cancer - family considering hospice care Continue supportive care Status: Acute
--- NOTE | 2017-09-21 14:48 | NM ---
COMPARISON: 09/19/2017 TECHNIQUE: 6.1 mCi technetium 99-m Xe-133 Gas. 3.2 mCI technetium 99-m MAA administered intravenously. FINDINGS: VENTILATION COMPONENT: Normal. PERFUSION COMPONENT: Heterogeneous distribution of radionuclide. No geographic, segmental, lobar abnormalities apparent on the present examination. IMPRESSION: Low probability ventilation perfusion scan for pulmonary embolism.
--- NOTE | 2017-09-21 15:13 | CP.PCM.PN ---
Subjective - Date & Time of Evaluation Date of Evaluation: 09/21/17 Time of Evaluation: 07:20 - Subjective Subjective: clinically same Objective - Vital Signs/Intake and Output Vital Signs (last 24 hours): Temp Pulse Resp BP Pulse Ox 98.4 F 69 20 98/64 L 98 09/21/17 07:55 09/21/17 12:19 09/21/17 07:55 09/21/17 07:55 09/21/17 12:19 Intake and Output: 09/21/17 09/21/17 06:59 18:59 Intake Total 650 900 Balance 650 900 - Medications Medications: Current Medications Docusate Sodium (Colace) 100 mg PO BID [facility] Last Admin: 09/21/17 09:42 Dose: Not Given Enoxaparin Sodium (Lovenox) 56 mg SC BID [facility] Last Admin: 09/21/17 09:43 Dose: 56 mg Meropenem 500 mg/ Sodium (Chloride) 100 mls @ 100 mls/hr IVPB Q8 [facility] Last Admin: 09/21/17 13:56 Dose: 100 mls/hr Dextrose/Sodium Chloride (Dextrose 5%/0.45% Ns 1000 Ml) 1,000 mls @ 50 mls/hr IV .Q20H [facility] Last Admin: 09/21/17 09:43 Dose: Not Given Levothyroxine Sodium (Synthroid) 25 mcg PO DAILY@0630 [facility] Last Admin: 09/21/17 05:53 Dose: 25 mcg Metoprolol Tartrate (Lopressor) 12.5 mg PO BID [facility] Last Admin: 09/21/17 09:44 Dose: Not Given Pantoprazole Sodium (Protonix Ec Tab) 40 mg PO DAILY [facility] Last Admin: 09/21/17 09:43 Dose: 40 mg Rifaximin (Xifaxan) 550 mg PO BID [facility] Last Admin: 09/21/17 09:42 Dose: 550 mg Senna/Docusate Sodium (Senokot S 50 Mg-8.6 Mg) 1 tab PO BID [facility] Last Admin: 09/21/17 09:42 Dose: Not Given Vitamin A (Vitamin A & D Oint Ud Foilpak) 0.5 ea TOP Q4 [facility] Last Admin: 09/21/17 12:41 Dose: 0.5 ea - Labs Labs: 09/21/17 06:57 09/21/17 06:57 PT 29.3 SECONDS (9.7-12.2) H 09/11/17 16:28 INR 2.5 09/11/17 16:28 APTT 36 SECONDS (21-34) H 09/11/17 16:28 - Constitutional Appears: Well - Head Exam Head Exam: ATRAUMATIC, NORMAL INSPECTION, NORMOCEPHALIC - Eye Exam Eye Exam: EOMI, Normal appearance, PERRL Pupil Exam: NORMAL ACCOMODATION, PERRL - ENT Exam ENT Exam: Mucous Membranes Moist, Normal Exam - Neck Exam Neck Exam: Full ROM, Normal Inspection. absent: Lymphadenopathy - Respiratory Exam Respiratory Exam: Decreased Breath Sounds - Cardiovascular Exam Cardiovascular Exam: REGULAR RHYTHM, +S1, +S2 - GI/Abdominal Exam GI & Abdominal Exam: Soft, Diminished Bowel Sounds - Rectal Exam Rectal Exam: Deferred
--- NOTE | 2017-09-21 18:23 | PN ---
ENDO FOLLOWUP NOTE LOCATION: Room 359. SUBJECTIVE: This is a 57-year-old female with metastatic breast carcinoma, terminally ill at this time and is being followed closely for metabolic management. She remains clinically and biochemically euthyroid at this time and is not on any kind of thyroid medication as noted. Her initial thyroid studies were indicative of the so called acute sick euthyroid syndrome with no indication for any kind of thyroid pharmacotherapy. She has a remote history of hyperthyroidism but has been off medical therapy for several years now as noted. She is being considered for hospice transfer at any time now as noted. We will of the patient. We will follow. Diane Kuhn MD
[2017-09-22] MEDS: Vitamins A & D Oint UD Foilpak TOP SCH ×7 (00:03→23:44)
[2017-09-22] MEDS: Meropenem 500 MG in Sodium Chloride 0.9% 100 ML IVPB SCH ×3 (05:02→21:20)
[2017-09-22] MEDS: Levothyroxine 25 MCG TAB PO SCH (06:24)
[2017-09-22] MEDS: Pantoprazole 40 mg EC Tab PO SCH (10:19)
[2017-09-22] MEDS: Docusate-Senna 50 mg-8.6 mg Tab PO SCH ×2 (10:20→17:28)
[2017-09-22] MEDS: Enoxaparin 60 mg Syringe SC SCH ×2 (10:20→17:28)
--- NOTE | 2017-09-22 13:27 | VASCLAB ---
PROCEDURE: Lower Extremity Venous Duplex Exam. HISTORY: elevated d dimer/ rule out PE PRIORS: None. TECHNIQUE: Bilateral common femoral, femoral, popliteal and posterior tibial, peroneal and great saphenous veins were evaluated. Flow was assessed with color Doppler, compressibility, assessment of phasic flow and augmentation response. Report prepared by Parker Milian, RADHA, RVT FINDINGS: RIGHT: 1. Common Femoral Vein: 1.1. Compressibility - Fully compressible: Thrombus - None : Flow - Phasic: Augmentation -Normal: Reflux - None. 2. Femoral Vein: 2.1. Compressibility - Fully compressible: Thrombus - None : Flow - Phasic: Augmentation -Normal: Reflux - None. 3. Popliteal Vein: 3.1. Compressibility - Fully compressible: Thrombus - None : Flow - Phasic: Augmentation -Normal: Reflux - None. 4. Posterior Tibial Vein: 4.1. Compressibility - Fully compressible: Thrombus - None: Flow - Phasic: Augmentation -Normal: Reflux - None. 5. Peroneal Vein: 5.1. Compressibility - Fully compressible: Thrombus - None: Flow - Phasic: Augmentation -Normal: Reflux - None. 6. Great Saphenous Vein: 6.1. Compressibility - : Thrombus - : Flow - : Augmentation - : Reflux - . LEFT: 1. Common Femoral Vein: 1.1. Compressibility - Fully compressible: Thrombus - None: Flow - Phasic: Augmentation -Normal: Reflux - None. 2. Femoral Vein: 2.1. Compressibility - Fully compressible: Thrombus - None: Flow - Phasic: Augmentation -Normal: Reflux - None. 3. Popliteal Vein: 3.1. Compressibility - Fully compressible: Thrombus - None : Flow - Phasic: Augmentation -Normal: Reflux - None. 4. Posterior Tibial Vein: 4.1. Compressibility - Fully compressible: Thrombus - None: Flow - Phasic: Augmentation -Normal: Reflux - None. 5. Peroneal Vein: 5.1. Compressibility - Fully compressible: Thrombus - None: Flow - Phasic: Augmentation -Normal: Reflux - None. 6. Great Saphenous Vein: 6.1. Compressibility - : Thrombus - : Flow - : Augmentation - : Reflux - . OTHER FINDINGS: Due to severe swelling, bilateral greater saphenous vein were not visualized. IMPRESSION: Right: No evidence of deep or superficial vein thrombosis of the right lower extremity. Normal valve function noted of the right side. Left: No evidence of deep or superficial vein thrombosis of the left lower extremity. Normal valve function noted of the left side.
--- NOTE | 2017-09-22 13:45 | CP.PCM.PN ---
Subjective - Date & Time of Evaluation Date of Evaluation: 09/22/17 Time of Evaluation: 07:10 - Subjective Subjective: clinically same Objective - Vital Signs/Intake and Output Vital Signs (last 24 hours): Temp Pulse Resp BP Pulse Ox 98.2 F 84 20 101/68 100 09/22/17 07:00 09/22/17 07:00 09/22/17 07:00 09/22/17 07:00 09/22/17 07:00 Intake and Output: 09/22/17 09/22/17 06:59 18:59 Intake Total 650 300 Balance 650 300 - Medications Medications: Current Medications Docusate Sodium (Colace) 100 mg PO BID [facility] Last Admin: 09/22/17 10:20 Dose: Not Given Enoxaparin Sodium (Lovenox) 56 mg SC BID [facility] Last Admin: 09/22/17 10:20 Dose: 56 mg Meropenem 500 mg/ Sodium (Chloride) 100 mls @ 100 mls/hr IVPB Q8 [facility] Last Admin: 09/22/17 13:29 Dose: 100 mls/hr Dextrose/Sodium Chloride (Dextrose 5%/0.45% Ns 1000 Ml) 1,000 mls @ 50 mls/hr IV .Q20H [facility] Last Admin: 09/21/17 09:43 Dose: Not Given Levothyroxine Sodium (Synthroid) 25 mcg PO DAILY@0630 [facility] Last Admin: 09/22/17 06:24 Dose: 25 mcg Metoprolol Tartrate (Lopressor) 12.5 mg PO BID [facility] Last Admin: 09/22/17 10:19 Dose: 12.5 mg Pantoprazole Sodium (Protonix Ec Tab) 40 mg PO DAILY [facility] Last Admin: 09/22/17 10:19 Dose: 40 mg Senna/Docusate Sodium (Senokot S 50 Mg-8.6 Mg) 1 tab PO BID [facility] Last Admin: 09/22/17 10:20 Dose: Not Given Vitamin A (Vitamin A & D Oint Ud Foilpak) 0.5 ea TOP Q4 [facility] Last Admin: 09/22/17 12:46 Dose: 0.5 ea - Labs Labs: 09/21/17 06:57 09/21/17 06:57 PT 29.3 SECONDS (9.7-12.2) H 09/11/17 16:28 INR 2.5 09/11/17 16:28 APTT 36 SECONDS (21-34) H 09/11/17 16:28 - Constitutional Appears: Well - Head Exam Head Exam: ATRAUMATIC, NORMAL INSPECTION, NORMOCEPHALIC - Eye Exam Eye Exam: EOMI, Normal appearance, PERRL Pupil Exam: NORMAL ACCOMODATION, PERRL - ENT Exam ENT Exam: Mucous Membranes Moist, Normal Exam - Neck Exam Neck Exam: Full ROM, Normal Inspection. absent: Lymphadenopathy - Respiratory Exam Respiratory Exam: Decreased Breath Sounds - Cardiovascular Exam Cardiovascular Exam: REGULAR RHYTHM, +S1, +S2 - GI/Abdominal Exam GI & Abdominal Exam: Soft, Diminished Bowel Sounds - Rectal Exam Rectal Exam: Deferred Assessment and Plan - Assessment and Plan (Free Text) Plan: spoke to brother also who wants some form of t cell treatment and ref to dr. parnell pt is more alert awake bladimir same discharge planning awaiting correction waiting followupwih onco DUPLEX SCAN -VE DVT RIGHT AND LEFT LOWER EXTREMITY. V/Q SCAN LOW PROBABILITY PE elevated bilirubin
--- NOTE | 2017-09-22 19:38 | CP.PCM.PN ---
Subjective - Date & Time of Evaluation Date of Evaluation: 09/22/17 Time of Evaluation: 18:00 - Subjective Subjective: \Pulmonary consult; covering Dr Willis The Patient was seen and examined at the bedside, Medical records reviewed, and management issues were discussed and formulated with the house staff. Pt afebrile Patient had one episode of agitations at 5:15, received Ativan 1mg IVP x1 dose Comfortable and has no new complaints. Pain well controlled. He denies any fever/chills, chest pain, shortness of breath, wheezing, cough or hemoptysis. Tolerating IV antibiotics with Meropenem Lower extremity venous doppler on 09/21/2017 negative bilaterally for DVT. VQ scan on 09/21/2017: low probability scan for PE. Objective - Vital Signs/Intake and Output Vital Signs (last 24 hours): Temp Pulse Resp BP Pulse Ox 98.2 F 72 20 107/64 97 09/22/17 16:00 09/22/17 16:00 09/22/17 16:00 09/22/17 16:00 09/22/17 16:00 Intake and Output: 09/22/17 09/23/17 18:59 06:59 Intake Total 300 Balance 300 - Medications Medications: Current Medications Docusate Sodium (Colace) 100 mg PO BID [facility] Last Admin: 09/22/17 17:27 Dose: Not Given Enoxaparin Sodium (Lovenox) 56 mg SC BID [facility] Last Admin: 09/22/17 17:28 Dose: 56 mg Meropenem 500 mg/ Sodium (Chloride) 100 mls @ 100 mls/hr IVPB Q8 [facility] Last Admin: 09/22/17 13:29 Dose: 100 mls/hr Levothyroxine Sodium (Synthroid) 25 mcg PO DAILY@0630 [facility] Last Admin: 09/22/17 06:24 Dose: 25 mcg Metoprolol Tartrate (Lopressor) 12.5 mg PO BID [facility] Last Admin: 09/22/17 17:27 Dose: 12.5 mg Pantoprazole Sodium (Protonix Ec Tab) 40 mg PO DAILY [facility] Last Admin: 09/22/17 10:19 Dose: 40 mg Senna/Docusate Sodium (Senokot S 50 Mg-8.6 Mg) 1 tab PO BID [facility] Last Admin: 09/22/17 17:28 Dose: Not Given Vitamin A (Vitamin A & D Oint Ud Foilpak) 0.5 ea TOP Q4 [facility] Last Admin: 09/22/17 17:28 Dose: 0.5 ea - Labs Labs: 09/21/17 06:57 09/21/17 06:57 PT 29.3 SECONDS (9.7-12.2) H 09/11/17 16:28 INR 2.5 09/11/17 16:28 APTT 36 SECONDS (21-34) H 09/11/17 16:28 - Constitutional Appears: Well, Non-toxic, No Acute Distress - Head Exam Head Exam: ATRAUMATIC, NORMOCEPHALIC - Eye Exam Eye Exam: EOMI Pupil Exam: PERRL - ENT Exam ENT Exam: Mucous Membranes Moist - Neck Exam Neck Exam: Full ROM. absent: Lymphadenopathy, Meningismus, Tenderness, Thyromegaly - Respiratory Exam Respiratory Exam: Clear to Ausculation Bilateral, NORMAL BREATHING PATTERN. absent: Accessory Muscle Use, Chest Wall Tenderness, Decreased Breath Sounds, Prolonged Expiratory Phase, Rales, Rhonchi, Wheezes, Respiratory Distress, Stridor - Cardiovascular Exam Cardiovascular Exam: +S1, +S2. absent: Diastolic murmur, Murmur - GI/Abdominal Exam GI & Abdominal Exam: Soft, Normal Bowel Sounds. absent: Distended, Tenderness - Neurological Exam Neurological Exam: Alert, Awake, CN II-XII Intact, Oriented x3 Assessment and Plan (1) Elevated d-dimer Assessment & Plan: Lower extremity venous doppler on 09/21/2017 negative bilaterally for DVT. VQ scan on 09/21/2017: low probability scan for PE. Patient currently on Enoxaparin Sodium (Lovenox) 56 mg SC BID I recommend changing the dose to DVT prophylaxis Will discuss with the PMD Status: Acute (2) Aspiration pneumonia Assessment & Plan: Afebrile No leukocytosis Adequate saturation Continue meropenem Pulmonary toileting Out of bed to chair Status: Acute (3) Sepsis Assessment & Plan: Continue IV antibiotics Blood culture has been negative Trend WBC count and fever curve Status: Acute (4) Pulmonary venous congestion Assessment & Plan: No evidence of fluid overload on physical exam Status: Acute (5) Metastatic breast cancer Assessment & Plan: Metastatic breast cancer - family considering hospice care Continue supportive care Status: Acute
--- NOTE | 2017-09-22 23:28 | CP.PCM.PN ---
Subjective - Date & Time of Evaluation Date of Evaluation: 09/22/17 Time of Evaluation: 23:28 - Subjective Subjective: afebrile. Sitting on the side of the bed. More comfortable and awake today.. APPETITE POOR. DENIES SHORTNESS OF BREATH LABS/RADIOLOGY REVIEWED DUPLEX SCAN -VE DVT RIGHT AND LEFT LOWER EXTREMITY. V/Q SCAN LOW PROBABILITY PE .wbc 7.1 cREATININE 0.7/bun 10 LFTS TOTAL BILI 5.9 ast 220, alt 95, ALKALINE PHOSPHATASE 172 - MOST PROBABLY SECONDARY TO METASTATIC LIVER DISEASE. Objective - Vital Signs/Intake and Output Vital Signs (last 24 hours): Temp Pulse Resp BP Pulse Ox 98.2 F 72 20 107/64 97 09/22/17 16:00 09/22/17 16:00 09/22/17 16:00 09/22/17 16:00 09/22/17 16:00 Intake and Output: 09/22/17 09/23/17 18:59 06:59 Intake Total 300 350 Balance 300 350 - Medications Medications: Current Medications Docusate Sodium (Colace) 100 mg PO BID [facility] Last Admin: 09/22/17 17:27 Dose: Not Given Enoxaparin Sodium (Lovenox) 56 mg SC BID [facility] Last Admin: 09/22/17 17:28 Dose: 56 mg Meropenem 500 mg/ Sodium (Chloride) 100 mls @ 100 mls/hr IVPB Q8 [facility] Last Admin: 09/22/17 21:20 Dose: 100 mls/hr Levothyroxine Sodium (Synthroid) 25 mcg PO DAILY@0630 [facility] Last Admin: 09/22/17 06:24 Dose: 25 mcg Metoprolol Tartrate (Lopressor) 12.5 mg PO BID [facility] Last Admin: 09/22/17 17:27 Dose: 12.5 mg Pantoprazole Sodium (Protonix Ec Tab) 40 mg PO DAILY [facility] Last Admin: 09/22/17 10:19 Dose: 40 mg Senna/Docusate Sodium (Senokot S 50 Mg-8.6 Mg) 1 tab PO BID [facility] Last Admin: 09/22/17 17:28 Dose: Not Given Vitamin A (Vitamin A & D Oint Ud Foilpak) 0.5 ea TOP Q4 [facility] Last Admin: 09/22/17 21:21 Dose: 0.5 ea - Labs Labs: 09/21/17 06:57 09/21/17 06:57 PT 29.3 SECONDS (9.7-12.2) H 09/11/17 16:28 INR 2.5 09/11/17 16:28 APTT 36 SECONDS (21-34) H 09/11/17 16:28 - Constitutional Appears: No Acute Distress, Chronically Ill - Head Exam Head Exam: NORMAL INSPECTION - Eye Exam Eye Exam: EOMI, PERRL, Scleral icterus - ENT Exam ENT Exam: Normal Oropharynx - Neck Exam Neck Exam: Normal Inspection - Respiratory Exam Respiratory Exam: Rhonchi (BASILAR RHONCHI LEFT-SIDED), NORMAL BREATHING PATTERN (.) - GI/Abdominal Exam GI & Abdominal Exam: Soft, Normal Bowel Sounds. absent: Tenderness - Extremities Exam Extremities Exam: Pedal Edema. absent: Calf Tenderness - Neurological Exam Neurological Exam: Awake, CN II-XII Intact, Reflexes Normal - Psychiatric Exam Psychiatric exam: Normal Affect - Skin Skin Exam: Normal Color, Warm Assessment and Plan - Assessment and Plan (Free Text) Assessment: IMPRESSION ; -SEPSIS WITH BANDEMIA -SOURCE NOT CLEAR LLL PNEUMONIA ? ASPIRATIO VS NOSOCOMIAL PNEUMONIA. - R/O CATHETER SEPSIS ( +VE PIERRE-CATH ) - METASTATIC BREAST CA WITH OSSEOUS/LIVER METASTASES - ADVANCED CIRRHOSIS/ENCEPHALOPATHY - RT. HYDRONEPHROSIS. PLAN; on iv MEROPENEM 500 MG EVERY 8 HOURLY 09/19/17. continue for 7 days moretill 09/28/17 FOLLOW-UP BLOOD CULTURES . -ve to date fOLLOW-UP cbc WITH DIFFERENTIAL/CMP. WILL FOLLOW ALONG WITH YOU WHILE IN THE HOSPITAL. PATIENT for subacute rehabilitation when bed available. pATIENT DNR/DNI .
--- NOTE | 2017-09-23 03:24 | PN ---
DATE: ENDO FOLLOWUP NOTE LOCATION: Room 359. SUBJECTIVE: This is a 57-year-old female with recent admission for generalized body weakness and with underlying metastatic breast carcinoma and liver metastasis and is now being followed closely for metabolic management. LABORATORY DATA: Her glycemic levels are near optimal at this time, and the latest chemistries showed BUN of 10, sodium 146, potassium 4.2, chloride 111, CO2 of 20, glucose 212, and creatinine 0.7. Her latest thyroid study showed T4 of 6.28 with a TSH of 5.50 indicative of very early subclinical hypothyroidism. ASSESSMENT AND PLAN: Considering her current metabolic and clinical status, we will hold off on initiation of levothyroxine therapy at this time. She remains hemodynamically stable otherwise. We will obtain serum chemistries and supplement accordingly as needed. We will follow. Diane Kuhn MD
[2017-09-23] MEDS: Vitamins A & D Oint UD Foilpak TOP SCH ×5 (04:33→20:43)
[2017-09-23] MEDS: Meropenem 500 MG in Sodium Chloride 0.9% 100 ML IVPB SCH ×3 (05:00→21:14)
[2017-09-23] MEDS: Levothyroxine 25 MCG TAB PO SCH (05:30)
[2017-09-23 07:58] LABS: BASO # 0.1 K/uL (0.0-0.2); HEMOGLOBIN 9.6 g/dL (11.0-16.0); LYMPH # 2.3 K/uL (1.0-4.3); LYMPH % 33.2 % (20.0-40.0); MEAN CELL VOLUME 89.6 fL (81.0-99.0); MEAN CORPUSCULAR HEMOGLOBIN 30.9 pg (27.0-31.0); MEAN CORPUSCULAR HGB CONC 34.5 g/dL (33.0-37.0); MEAN PLATELET VOLUME 10.7 fL (7.2-11.7); MONO % 14.7 % (0.0-10.0); NEUT # 3.5 K/uL (1.8-7.0); NEUT % 51.1 % (50.0-75.0); NRBC % 0.6 % (0.0-2.0); RBC 3.1 Mil/uL (3.80-5.20); WHITE BLOOD COUNT 6.9 K/uL (4.8-10.8)
[2017-09-23 08:12] LABS: ALB/GLOB RATIO 0.6 (1.0-2.1); ALBUMIN 1.8 g/dL (3.5-5.0); ALT/SGPT 81 U/L (9-52); AST/SGOT 175 U/L (14-36); BLOOD UREA NITROGEN 7 mg/dL (7-17); CALCIUM 7.1 mg/dl (8.6-10.4); GFR AFRICAN-AMERICAN > 60; GFR NON-AFRICAN AMERICAN > 60
[2017-09-23] MEDS: Docusate-Senna 50 mg-8.6 mg Tab PO SCH ×2 (09:34→17:19)
[2017-09-23] MEDS: Pantoprazole 40 mg EC Tab PO SCH (09:34)
[2017-09-23] MEDS: Enoxaparin 60 mg Syringe SC SCH ×2 (09:35→17:19)
[2017-09-23] MEDS: Dextrose 5%/0.45% NS 1,000 ML IV SCH (09:35)
--- NOTE | 2017-09-23 10:12 | CP.PCM.PN ---
Subjective - Date & Time of Evaluation Date of Evaluation: 09/23/17 Time of Evaluation: 10:09 - Subjective Subjective: Pulmonary consult; covering Dr Willis The Patient was seen and examined at the bedside, Medical records reviewed, and management issues were discussed and formulated with the house staff. Pt afebrile Patient had one episode of agitations last night, received Ativan 1mg IVP x1 dose Comfortable and has no new complaints. Pain well controlled. He denies any fever/chills, chest pain, shortness of breath, wheezing, cough or hemoptysis. Most recent chest XR 09/19 shows mild bilateral congestion, left lower lobe atelectasis and possible right lower lobe infiltrate which could be secondary to aspiration Tolerating IV antibiotics with Meropenem Appetite is poor Lower extremity venous doppler on 09/21/2017 negative bilaterally for DVT. VQ scan on 09/21/2017: low probability scan for PE. Objective - Vital Signs/Intake and Output Vital Signs (last 24 hours): Temp Pulse Resp BP Pulse Ox 98.1 F 72 20 102/58 L 97 09/23/17 08:20 09/23/17 08:20 09/23/17 08:20 09/23/17 08:20 09/23/17 08:20 Intake and Output: 09/23/17 09/23/17 06:59 18:59 Intake Total 860 Balance 860 - Medications Medications: Current Medications Docusate Sodium (Colace) 100 mg PO BID [facility] Last Admin: 09/23/17 09:34 Dose: Not Given Enoxaparin Sodium (Lovenox) 56 mg SC BID [facility] Last Admin: 09/23/17 09:35 Dose: 56 mg Meropenem 500 mg/ Sodium (Chloride) 100 mls @ 100 mls/hr IVPB Q8 [facility] Last Admin: 09/23/17 05:00 Dose: 100 mls/hr Levothyroxine Sodium (Synthroid) 25 mcg PO DAILY@0630 [facility] Last Admin: 09/23/17 05:30 Dose: 25 mcg Metoprolol Tartrate (Lopressor) 12.5 mg PO BID [facility] Last Admin: 09/23/17 09:34 Dose: Not Given Pantoprazole Sodium (Protonix Ec Tab) 40 mg PO DAILY [facility] Last Admin: 09/23/17 09:34 Dose: 40 mg Senna/Docusate Sodium (Senokot S 50 Mg-8.6 Mg) 1 tab PO BID [facility] Last Admin: 09/23/17 09:34 Dose: Not Given Vitamin A (Vitamin A & D Oint Ud Foilpak) 0.5 ea TOP Q4 [facility] Last Admin: 09/23/17 07:14 Dose: Not Given - Labs Labs: 09/23/17 07:47 09/23/17 07:47 PT 29.3 SECONDS (9.7-12.2) H 09/11/17 16:28 INR 2.5 09/11/17 16:28 APTT 36 SECONDS (21-34) H 09/11/17 16:28 Assessment and Plan (1) Elevated d-dimer Status: Acute (2) Aspiration pneumonia Status: Acute (3) Sepsis Status: Acute (4) Pulmonary venous congestion Status: Acute (5) Metastatic breast cancer Status: Acute - Assessment and Plan (Free Text) Assessment: (1) Elevated d-dimer Assessment & Plan: Lower extremity venous doppler on 09/21/2017 negative bilaterally for DVT. VQ scan on 09/21/2017: low probability scan for PE. Patient currently on Enoxaparin Sodium (Lovenox) 56 mg SC BID I recommend changing the dose to DVT prophylaxis Will discuss with the PMD Status: Acute (2) Aspiration pneumonia Assessment & Plan: Afebrile No leukocytosis Adequate saturation Continue meropenem Pulmonary toileting Out of bed to chair Most recent chest XR 09/19 shows mild bilateral congestion, left lower lobe atelectasis and possible right lower lobe infiltrate which could be secondary to aspiration Status: Acute (3) Sepsis Assessment & Plan: Continue IV antibiotics Blood culture has been negative Trend WBC count and fever curve Status: Acute (4) Pulmonary venous congestion Assessment & Plan: Patient with bilateral leg swelling and mild pulmonary vascular congestion on most recent chest XR Otherwise No evidence of overt fluid overload on physical exam Will give one dose of IV Lasix 20mg today and reevaluate fluid status tomorrow Status: Acute (5) Metastatic breast cancer Assessment & Plan: Metastatic breast cancer - family considering hospice care Continue supportive care Status: Acute
--- NOTE | 2017-09-23 16:38 | CP.PCM.PN ---
Subjective - Date & Time of Evaluation Date of Evaluation: 09/23/17 Time of Evaluation: 07:00 - Subjective Subjective: clinically same Objective - Vital Signs/Intake and Output Vital Signs (last 24 hours): Temp Pulse Resp BP Pulse Ox 98.1 F 69 20 101/66 95 09/23/17 08:20 09/23/17 13:55 09/23/17 08:20 09/23/17 10:41 09/23/17 13:55 Intake and Output: 09/23/17 09/23/17 06:59 18:59 Intake Total 860 690 Balance 860 690 - Medications Medications: Current Medications Docusate Sodium (Colace) 100 mg PO BID [facility] Last Admin: 09/23/17 09:34 Dose: Not Given Enoxaparin Sodium (Lovenox) 56 mg SC BID [facility] Last Admin: 09/23/17 09:35 Dose: 56 mg Meropenem 500 mg/ Sodium (Chloride) 100 mls @ 100 mls/hr IVPB Q8 [facility] Last Admin: 09/23/17 13:38 Dose: 100 mls/hr Levothyroxine Sodium (Synthroid) 25 mcg PO DAILY@0630 [facility] Last Admin: 09/23/17 05:30 Dose: 25 mcg Metoprolol Tartrate (Lopressor) 12.5 mg PO BID [facility] Last Admin: 09/23/17 09:34 Dose: Not Given Pantoprazole Sodium (Protonix Ec Tab) 40 mg PO DAILY [facility] Last Admin: 09/23/17 09:34 Dose: 40 mg Potassium Chloride (Potassium Chloride Oral Soln) 20 meq PO ONCE ONE Stop: 09/23/17 18:01 Senna/Docusate Sodium (Senokot S 50 Mg-8.6 Mg) 1 tab PO BID [facility] Last Admin: 09/23/17 09:34 Dose: Not Given Vitamin A (Vitamin A & D Oint Ud Foilpak) 0.5 ea TOP Q4 [facility] Last Admin: 09/23/17 11:41 Dose: 0.5 ea - Labs Labs: 09/23/17 07:47 09/23/17 07:47 PT 29.3 SECONDS (9.7-12.2) H 09/11/17 16:28 INR 2.5 09/11/17 16:28 APTT 36 SECONDS (21-34) H 09/11/17 16:28 - Constitutional Appears: Well - Head Exam Head Exam: ATRAUMATIC, NORMAL INSPECTION, NORMOCEPHALIC - Eye Exam Eye Exam: EOMI, Normal appearance, PERRL Pupil Exam: NORMAL ACCOMODATION, PERRL - ENT Exam ENT Exam: Mucous Membranes Moist, Normal Exam - Neck Exam Neck Exam: Full ROM, Normal Inspection. absent: Lymphadenopathy - Respiratory Exam Respiratory Exam: Decreased Breath Sounds - Cardiovascular Exam Cardiovascular Exam: REGULAR RHYTHM, +S1, +S2 - GI/Abdominal Exam GI & Abdominal Exam: Soft, Diminished Bowel Sounds - Rectal Exam Rectal Exam: Deferred Assessment and Plan - Assessment and Plan (Free Text) Plan: (1) Elevated d-dimer Assessment & Plan: Lower extremity venous doppler on 09/21/2017 negative bilaterally for DVT. VQ scan on 09/21/2017: low probability scan for PE. Patient currently on Enoxaparin Sodium (Lovenox) 56 mg SC BID I recommend changing the dose to DVT prophylaxis Will discuss with the PMD Status: Acute (2) Aspiration pneumonia Assessment & Plan: Afebrile No leukocytosis Adequate saturation Continue meropenem Pulmonary toileting Out of bed to chair Most recent chest XR 09/19 shows mild bilateral congestion, left lower lobe atelectasis and possible right lower lobe infiltrate which could be secondary to aspiration Status: Acute (3) Sepsis Assessment & Plan: Continue IV antibiotics Blood culture has been negative Trend WBC count and fever curve Status: Acute (4) Pulmonary venous congestion Assessment & Plan: Patient with bilateral leg swelling and mild pulmonary vascular congestion on most recent chest XR Otherwise No evidence of overt fluid overload on physical exam Will give one dose of IV Lasix 20mg today and reevaluate fluid status tomorrow Status: Acute (5) Metastatic breast cancer Assessment & Plan: Metastatic breast cancer - family considering hospice care Continue supportive care Status: Acute
[2017-09-23] MEDS ORDERED: Potassium Chloride 20 mEq/15 ml LIQ UD PO ONE (18:00)
--- NOTE | 2017-09-23 18:42 | CON ---
DATE: ONCOLOGY FOLLOWUP HISTORY OF PRESENT ILLNESS: This is a 57-year-old woman with likely metastatic cancer of the breast. She is seen at the bedside. She is able to lie flat and then on the side. She is alert. She . She says that she is not in very much pain, just very weak and she complains of a little bit of swelling in her legs. PHYSICAL EXAMINATION: SKIN: No petechiae. No bruises. HEENT: Anicteric. LUNGS: Clear at present. She is able to lie flat in bed. HEART: S1 and S2. ABDOMEN: Shows no liver, no spleen. EXTREMITIES: Shows +1 edema bilaterally. Homans' sign negative. [employer]: No focal findings. The patient is here for symptom control and she said it should be relatively good symptom control other than the weakness and inability to get out of the bed due to the weakness, but she says she is relatively comfortable. Bolivar Brandt MD
--- NOTE | 2017-09-23 21:23 | PN ---
DATE: ENDO FOLLOWUP NOTE LOCATION: Room 359. SUBJECTIVE: This is a 57-year-old female with metastatic breast carcinoma and now being followed closely for metabolic management. LABORATORY DATA: Her latest chemistries have been reviewed as noted. She remains clinically euthyroid and biochemically has evidence of early hypothyroidism as noted. Her latest chemistry showed a BUN of 10, sodium 146, potassium 3.2, chloride 111, CO2 20, glucose 142, and creatinine 0.7. Her latest thyroid study showed a T4 of 6.28 with a TSH of 5.50. PLAN: So at this time, we will continue her low-dose levothyroxine, given as 25 mcg once daily in the morning as ordered. We will titrate incrementally as indicated to optimize metabolic control. We will obtain serial chemistries and supplement accordingly as needed. We will follow. Diane Kuhn MD
[2017-09-24] MEDS: Vitamins A & D Oint UD Foilpak TOP SCH ×6 (00:10→22:12)
[2017-09-24] MEDS: Meropenem 500 MG in Sodium Chloride 0.9% 100 ML IVPB SCH ×3 (05:09→22:13)
[2017-09-24] MEDS: Levothyroxine 25 MCG TAB PO SCH (05:56)
[2017-09-24] MEDS: Potassium Chloride 10 mEq ER Tab PO SCH ×2 (08:34→16:30)
[2017-09-24] MEDS: Docusate-Senna 50 mg-8.6 mg Tab PO SCH ×2 (10:31→18:01)
[2017-09-24] MEDS: Enoxaparin 60 mg Syringe SC SCH ×2 (10:31→18:01)
[2017-09-24] MEDS: Pantoprazole 40 mg EC Tab PO SCH (10:31)
--- NOTE | 2017-09-24 13:32 | PN ---
DATE: ENDO FOLLOWUP NOTE SUBJECTIVE: This is a 57-year-old female with recent admission for generalized body weakness and with concomitant metastatic breast carcinoma and is now being followed closely for metabolic management. She remains extremely weak at this time with variable and nil oral intake and with ongoing IV antibiotic management as noted. She has a possible right lower lobe pneumonia with bilateral congestion as noted. She remains clinically euthyroid and biochemically has evidence of very early hypothyroidism as noted thereof. Her latest chemistries showed a BUN of 7, sodium 141, potassium of 3.5, chloride 111, CO2 20, glucose 109 and creatinine 0.6. Her latest thyroid study showed T4 of 6.28 with TSH of 5.50. So at this time, we will continue the low dose levothyroxine given as 25 mcg once daily in the morning as ordered. We will titrate incrementally as indicated to optimize metabolic control. We will follow. Diane Kuhn MD
[2017-09-24] MEDS: Dextrose 5%/0.45% NS 1,000 ML IV SCH (14:05)
--- NOTE | 2017-09-24 18:35 | CP.PCM.PN ---
Subjective - Date & Time of Evaluation Date of Evaluation: 09/24/17 Time of Evaluation: 17:00 - Subjective Subjective: Pulmonary consult; covering Dr Willis The Patient was seen and examined at the bedside, Medical records reviewed, and management issues were discussed and formulated with the house staff. Pt afebrile Patient had one episode of agitations last night, received Ativan 1mg IVP x1 dose Comfortable and has no new complaints. Pain well controlled. He denies any fever/chills, chest pain, shortness of breath, wheezing, cough or hemoptysis. Most recent chest XR 09/19 shows mild bilateral congestion, left lower lobe atelectasis and possible right lower lobe infiltrate which could be secondary to aspiration Tolerating IV antibiotics with Meropenem Appetite is poor Lower extremity venous doppler on 09/21/2017 negative bilaterally for DVT. VQ scan on 09/21/2017: low probability scan for PE. Objective - Vital Signs/Intake and Output Vital Signs (last 24 hours): Temp Pulse Resp BP Pulse Ox 98.1 F 80 20 108/58 L 96 09/24/17 16:00 09/24/17 16:00 09/24/17 16:00 09/24/17 16:00 09/24/17 16:00 Intake and Output: 09/24/17 09/24/17 06:59 18:59 Intake Total 600 740 Balance 600 740 - Medications Medications: Current Medications Enoxaparin Sodium (Lovenox) 56 mg SC BID [facility] Last Admin: 09/24/17 18:01 Dose: 56 mg Meropenem 500 mg/ Sodium (Chloride) 100 mls @ 100 mls/hr IVPB Q8 [facility] Last Admin: 09/24/17 14:05 Dose: 100 mls/hr Levothyroxine Sodium (Synthroid) 25 mcg PO DAILY@0630 [facility] Last Admin: 09/24/17 05:56 Dose: 25 mcg Metoprolol Tartrate (Lopressor) 12.5 mg PO BID [facility] Last Admin: 09/24/17 17:59 Dose: 12.5 mg Pantoprazole Sodium (Protonix Ec Tab) 40 mg PO DAILY [facility] Last Admin: 09/24/17 10:31 Dose: 40 mg Potassium Chloride (Klor-Con 10) 40 meq PO BRK [facility] Last Admin: 09/24/17 08:34 Dose: 40 meq Potassium Chloride (Klor-Con 10) 10 meq PO BRK [facility] Last Admin: 09/24/17 16:30 Dose: 10 meq Vitamin A (Vitamin A & D Oint Ud Foilpak) 0.5 ea TOP Q4 [facility] Last Admin: 09/24/17 18:00 Dose: 0.5 ea - Labs Labs: 09/23/17 07:47 09/23/17 07:47 PT 29.3 SECONDS (9.7-12.2) H 09/11/17 16:28 INR 2.5 09/11/17 16:28 APTT 36 SECONDS (21-34) H 09/11/17 16:28 - Constitutional Appears: Well, Non-toxic - Head Exam Head Exam: ATRAUMATIC, NORMAL INSPECTION - Eye Exam Eye Exam: EOMI Pupil Exam: PERRL - ENT Exam ENT Exam: Mucous Membranes Moist - Neck Exam Neck Exam: Full ROM, Normal Inspection. absent: Lymphadenopathy, Meningismus, Tenderness, Thyromegaly - Respiratory Exam Respiratory Exam: Decreased Breath Sounds. absent: Accessory Muscle Use, Chest Wall Tenderness, Prolonged Expiratory Phase, Rales, Rhonchi - Cardiovascular Exam Cardiovascular Exam: RRR, +S1, +S2. absent: Bradycardia, Tachycardia, JVD - GI/Abdominal Exam GI & Abdominal Exam: Normal Bowel Sounds Assessment and Plan (1) Elevated d-dimer Status: Acute (2) Aspiration pneumonia Status: Acute (3) Sepsis Status: Acute (4) Pulmonary venous congestion Status: Acute (5) Metastatic breast cancer Assessment & Plan: (1) Elevated d-dimer Assessment & Plan: Lower extremity venous doppler on 09/21/2017 negative bilaterally for DVT. VQ scan on 09/21/2017: low probability scan for PE. Patient tolerating Enoxaparin Sodium (Lovenox) 56 mg SC BID Status: Acute (2) Aspiration pneumonia Assessment & Plan: Afebrile No leukocytosis Adequate saturation Continue meropenem Pulmonary toileting Out of bed to chair Most recent chest XR 09/19 shows mild bilateral congestion, left lower lobe atelectasis and possible right lower lobe infiltrate which could be secondary to aspiration Status: Acute (3) Sepsis Assessment & Plan: Continue IV antibiotics Blood culture has been negative Trend WBC count and fever curve Status: Acute (4) Pulmonary venous congestion Assessment & Plan: Patient with bilateral leg swelling and mild pulmonary vascular congestion on most recent chest XR Otherwise No evidence of overt fluid overload on physical exam 09/23, received one dose of IV Lasix 20mg yesterday No Lasix today and reevaluate fluid status tomorrow Status: Acute (5) Metastatic breast cancer Assessment & Plan: Metastatic breast cancer - family considering hospice care Continue supportive care Status: Acute Status: Acute
--- NOTE | 2017-09-24 20:45 | CP.PCM.PN ---
Subjective - Date & Time of Evaluation Date of Evaluation: 09/24/17 Time of Evaluation: 07:00 - Subjective Subjective: clinically same Objective - Vital Signs/Intake and Output Vital Signs (last 24 hours): Temp Pulse Resp BP Pulse Ox 98.1 F 80 20 108/58 L 96 09/24/17 16:00 09/24/17 16:00 09/24/17 16:00 09/24/17 16:00 09/24/17 16:00 Intake and Output: 09/24/17 09/25/17 18:59 06:59 Intake Total 740 Balance 740 - Medications Medications: Current Medications Enoxaparin Sodium (Lovenox) 56 mg SC BID [facility] Last Admin: 09/24/17 18:01 Dose: 56 mg Meropenem 500 mg/ Sodium (Chloride) 100 mls @ 100 mls/hr IVPB Q8 [facility] Last Admin: 09/24/17 14:05 Dose: 100 mls/hr Levothyroxine Sodium (Synthroid) 25 mcg PO DAILY@0630 [facility] Last Admin: 09/24/17 05:56 Dose: 25 mcg Metoprolol Tartrate (Lopressor) 12.5 mg PO BID [facility] Last Admin: 09/24/17 17:59 Dose: 12.5 mg Pantoprazole Sodium (Protonix Ec Tab) 40 mg PO DAILY [facility] Last Admin: 09/24/17 10:31 Dose: 40 mg Potassium Chloride (Klor-Con 10) 40 meq PO BRK [facility] Last Admin: 09/24/17 08:34 Dose: 40 meq Potassium Chloride (Klor-Con 10) 10 meq PO BRK [facility] Last Admin: 09/24/17 16:30 Dose: 10 meq Vitamin A (Vitamin A & D Oint Ud Foilpak) 0.5 ea TOP Q4 [facility] Last Admin: 09/24/17 18:00 Dose: 0.5 ea - Labs Labs: 09/23/17 07:47 09/23/17 07:47 PT 29.3 SECONDS (9.7-12.2) H 09/11/17 16:28 INR 2.5 09/11/17 16:28 APTT 36 SECONDS (21-34) H 09/11/17 16:28
[2017-09-25] MEDS: Vitamins A & D Oint UD Foilpak TOP SCH ×6 (00:05→21:31)
[2017-09-25] MEDS: Levothyroxine 25 MCG TAB PO SCH (05:31)
[2017-09-25] MEDS: Potassium Chloride 10 mEq ER Tab PO SCH ×2 (09:00)
[2017-09-25] MEDS: Enoxaparin 60 mg Syringe SC SCH ×2 (10:38→17:34)
[2017-09-25] MEDS: Pantoprazole 40 mg EC Tab PO SCH (10:43)
--- NOTE | 2017-09-25 15:44 | CP.PCM.PN ---
Subjective - Date & Time of Evaluation Date of Evaluation: 09/25/17 Time of Evaluation: 07:00 - Subjective Subjective: clinically same Objective - Vital Signs/Intake and Output Vital Signs (last 24 hours): Temp Pulse Resp BP Pulse Ox 98.2 F 71 20 95/59 L 96 09/25/17 08:34 09/25/17 08:34 09/25/17 08:34 09/25/17 08:34 09/25/17 08:34 - Medications Medications: Current Medications Enoxaparin Sodium (Lovenox) 56 mg SC BID [facility] Last Admin: 09/25/17 10:38 Dose: 56 mg Levothyroxine Sodium (Synthroid) 25 mcg PO DAILY@0630 [facility] Last Admin: 09/25/17 05:31 Dose: 25 mcg Metoprolol Tartrate (Lopressor) 12.5 mg PO BID [facility] Last Admin: 09/25/17 10:44 Dose: 12.5 mg Pantoprazole Sodium (Protonix Ec Tab) 40 mg PO DAILY [facility] Last Admin: 09/25/17 10:43 Dose: 40 mg Potassium Chloride (Klor-Con 10) 40 meq PO BRK [facility] Last Admin: 09/25/17 09:00 Dose: 40 meq Potassium Chloride (Klor-Con 10) 10 meq PO BRK [facility] Last Admin: 09/25/17 09:00 Dose: 10 meq Vitamin A (Vitamin A & D Oint Ud Foilpak) 0.5 ea TOP Q4 [facility] Last Admin: 09/25/17 14:23 Dose: 0.5 ea - Labs Labs: 09/23/17 07:47 09/23/17 07:47 PT 29.3 SECONDS (9.7-12.2) H 09/11/17 16:28 INR 2.5 09/11/17 16:28 APTT 36 SECONDS (21-34) H 09/11/17 16:28 - Constitutional Appears: Well - Head Exam Head Exam: ATRAUMATIC, NORMAL INSPECTION, NORMOCEPHALIC - Eye Exam Eye Exam: EOMI, Normal appearance, PERRL Pupil Exam: NORMAL ACCOMODATION, PERRL - ENT Exam ENT Exam: Mucous Membranes Moist, Normal Exam - Neck Exam Neck Exam: Full ROM, Normal Inspection. absent: Lymphadenopathy - Respiratory Exam Respiratory Exam: Decreased Breath Sounds - Cardiovascular Exam Cardiovascular Exam: REGULAR RHYTHM, +S1, +S2 - GI/Abdominal Exam GI & Abdominal Exam: Soft, Diminished Bowel Sounds - Rectal Exam Rectal Exam: Deferred Assessment and Plan (1) Abdominal pain Status: Acute (2) Aspiration pneumonia Status: Acute (3) Elevated d-dimer Status: Acute (4) Headache Status: Acute (5) Metastatic breast cancer Status: Acute (6) Nausea Status: Acute (7) Pulmonary venous congestion Status: Acute (8) Sepsis Status: Acute (9) Vomiting Status: Acute - Assessment and Plan (Free Text) Plan: Encourage p.o. food Continue supplementing the potassium as needed Continue GI and DVT prophylaxis Follow-up with Dr. Noreen Mcpherson Discharge planning
--- NOTE | 2017-09-25 15:46 | CP.PCM.PN ---
Subjective - Date & Time of Evaluation Date of Evaluation: 09/25/17 Time of Evaluation: 15:45 - Subjective Subjective: Pulmonary Follow up The Patient was seen and examined at the bedside, Medical records reviewed, and management issues were discussed and formulated with the house staff. Pt afebrile Patient had one episode of agitations last night, received Ativan 1mg IVP x1 dose Comfortable and has no new complaints. Pain well controlled. He denies any fever/chills, chest pain, shortness of breath, wheezing, cough or hemoptysis. Most recent chest XR 09/19 shows mild bilateral congestion, left lower lobe atelectasis and possible right lower lobe infiltrate which could be secondary to aspiration Tolerating IV antibiotics with Meropenem Appetite is poor Lower extremity venous doppler on 09/21/2017 negative bilaterally for DVT. VQ scan on 09/21/2017: low probability scan for PE. Objective - Vital Signs/Intake and Output Vital Signs (last 24 hours): Temp Pulse Resp BP Pulse Ox 98.2 F 71 20 95/59 L 96 09/25/17 08:34 09/25/17 08:34 09/25/17 08:34 09/25/17 08:34 09/25/17 08:34 - Medications Medications: Current Medications Enoxaparin Sodium (Lovenox) 56 mg SC BID [facility] Last Admin: 09/25/17 10:38 Dose: 56 mg Levothyroxine Sodium (Synthroid) 25 mcg PO DAILY@0630 [facility] Last Admin: 09/25/17 05:31 Dose: 25 mcg Metoprolol Tartrate (Lopressor) 12.5 mg PO BID [facility] Last Admin: 09/25/17 10:44 Dose: 12.5 mg Pantoprazole Sodium (Protonix Ec Tab) 40 mg PO DAILY [facility] Last Admin: 09/25/17 10:43 Dose: 40 mg Potassium Chloride (Klor-Con 10) 40 meq PO BRK [facility] Last Admin: 09/25/17 09:00 Dose: 40 meq Potassium Chloride (Klor-Con 10) 10 meq PO BRK [facility] Last Admin: 09/25/17 09:00 Dose: 10 meq Vitamin A (Vitamin A & D Oint Ud Foilpak) 0.5 ea TOP Q4 [facility] Last Admin: 09/25/17 14:23 Dose: 0.5 ea - Labs Labs: 09/23/17 07:47 09/23/17 07:47 PT 29.3 SECONDS (9.7-12.2) H 09/11/17 16:28 INR 2.5 09/11/17 16:28 APTT 36 SECONDS (21-34) H 09/11/17 16:28 - Constitutional Appears: Well, Non-toxic - Head Exam Head Exam: ATRAUMATIC, NORMAL INSPECTION - Eye Exam Eye Exam: EOMI, Normal appearance. absent: Conjunctival injection - ENT Exam ENT Exam: Mucous Membranes Moist - Neck Exam Neck Exam: Full ROM - Respiratory Exam Respiratory Exam: Clear to Ausculation Bilateral, NORMAL BREATHING PATTERN. absent: Accessory Muscle Use, Chest Wall Tenderness, Decreased Breath Sounds - Cardiovascular Exam Cardiovascular Exam: REGULAR RHYTHM, RRR, +S1, +S2. absent: JVD - GI/Abdominal Exam GI & Abdominal Exam: Soft, Normal Bowel Sounds. absent: Distended, Firm, Guarding Assessment and Plan (1) Elevated d-dimer Status: Acute (2) Aspiration pneumonia Status: Acute (3) Sepsis Status: Acute (4) Pulmonary venous congestion Status: Acute (5) Metastatic breast cancer Status: Acute - Assessment and Plan (Free Text) Assessment: Assessment & Plan: Lower extremity venous doppler on 09/21/2017 negative bilaterally for DVT. VQ scan on 09/21/2017: low probability scan for PE. Patient tolerating Enoxaparin Sodium (Lovenox) 56 mg SC BID Status: Acute (2) Aspiration pneumonia Assessment & Plan: Afebrile No leukocytosis Adequate saturation Continue meropenem Pulmonary toileting Out of bed to chair Most recent chest XR 09/19 shows mild bilateral congestion, left lower lobe atelectasis and possible right lower lobe infiltrate which could be secondary to aspiration Status: Acute (3) Sepsis Assessment & Plan: Continue IV antibiotics Blood culture has been negative Trend WBC count and fever curve Status: Acute (4) Pulmonary venous congestion Assessment & Plan: Patient with bilateral leg swelling and mild pulmonary vascular congestion on most recent chest XR Otherwise No evidence of overt fluid overload on physical exam 09/23, received one dose of IV Lasix 20mg yesterday No Lasix today and reevaluate fluid status tomorrow Status: Acute (5) Metastatic breast cancer Assessment & Plan: Metastatic breast cancer - family considering hospice care Continue supportive care Status: Acute Status: Acute
[2017-09-25] MEDS: Dextrose 5%/0.45% NS 1,000 ML IV SCH (16:30)
--- NOTE | 2017-09-25 18:51 | PN ---
ENDO FOLLOWUP NOTE LOCATION: Room 359. SUBJECTIVE: This is a 57-year-old female with metastatic breast carcinoma and now being followed closely for metabolic management. She remains clinically euthyroid and biochemically has very early hypothyroidism as noted . Her latest thyroid studies showed a total T4 of thyroxine level 5.50 with a free T4 of 1.24 and a TSH of 6.28. PLAN: At this time, we will continue the very low dose of levothyroxine given as 25 mcg once daily in the morning. We will titrate incrementally as indicated to optimize metabolic control. We will obtain serial chemistries and supplement accordingly as needed. We will also obtain serial thyroid studies and titrate her dose regimen accordingly. We will follow. Diane Kuhn MD
[2017-09-26] MEDS: Vitamins A & D Oint UD Foilpak TOP SCH ×6 (00:06→20:26)
[2017-09-26] MEDS: Dextrose 5%/0.45% NS 1,000 ML IV SCH ×2 (05:11→12:48)
[2017-09-26] MEDS: Levothyroxine 25 MCG TAB PO SCH (05:30)
[2017-09-26 06:46] LABS: BASO # 0.1 K/uL (0.0-0.2); BASO % 0.8 % (0.0-2.0); EOS % 0.1 % (0.0-4.0); HEMOGLOBIN 9.6 g/dL (11.0-16.0); LYMPH # 2.2 K/uL (1.0-4.3); LYMPH % 30.3 % (20.0-40.0); MEAN CELL VOLUME 88.9 fL (81.0-99.0); MEAN CORPUSCULAR HEMOGLOBIN 30.9 pg (27.0-31.0); MEAN CORPUSCULAR HGB CONC 34.8 g/dL (33.0-37.0); MEAN PLATELET VOLUME 10.6 fL (7.2-11.7); MONO # 1.3 K/uL (0.0-0.8); MONO % 17.5 % (0.0-10.0); NEUT # 3.7 K/uL (1.8-7.0); NEUT % 51.3 % (50.0-75.0); NRBC % 0.4 % (0.0-2.0); RBC 3.1 Mil/uL (3.80-5.20); RED CELL DISTRIBUTION WIDTH 16.5 % (11.5-14.5); WHITE BLOOD COUNT 7.2 K/uL (4.8-10.8)
[2017-09-26 07:00] LABS: ALB/GLOB RATIO 0.6 (1.0-2.1); ALBUMIN 1.9 g/dL (3.5-5.0); ALT/SGPT 69 U/L (9-52); AST/SGOT 138 U/L (14-36); BLOOD UREA NITROGEN 8 mg/dL (7-17); CALCIUM 7.6 mg/dl (8.6-10.4); GFR AFRICAN-AMERICAN > 60; GFR NON-AFRICAN AMERICAN > 60
[2017-09-26] MEDS: Potassium Chloride 10 mEq ER Tab PO SCH ×2 (08:23→08:24)
[2017-09-26] MEDS: Pantoprazole 40 mg EC Tab PO SCH (10:48)
[2017-09-26] MEDS: Enoxaparin 60 mg Syringe SC SCH (10:48)
--- NOTE | 2017-09-26 19:31 | CP.PCM.PN ---
Subjective - Date & Time of Evaluation Date of Evaluation: 09/26/17 Time of Evaluation: 08:10 - Subjective Subjective: clinically same Objective - Vital Signs/Intake and Output Vital Signs (last 24 hours): Temp Pulse Resp BP Pulse Ox 98.2 F 74 20 115/71 96 09/26/17 15:00 09/26/17 15:00 09/26/17 15:00 09/26/17 15:00 09/26/17 15:00 Intake and Output: 09/26/17 09/27/17 18:59 06:59 Intake Total 760 Balance 760 - Medications Medications: Current Medications Enoxaparin Sodium (Lovenox) 40 mg SC DAILY [facility] Levothyroxine Sodium (Synthroid) 25 mcg PO DAILY@0630 [facility] Last Admin: 09/26/17 05:30 Dose: 25 mcg Metoprolol Tartrate (Lopressor) 12.5 mg PO BID [facility] Last Admin: 09/26/17 17:17 Dose: 12.5 mg Pantoprazole Sodium (Protonix Ec Tab) 40 mg PO DAILY [facility] Last Admin: 09/26/17 10:48 Dose: 40 mg Vitamin A (Vitamin A & D Oint Ud Foilpak) 0.5 ea TOP Q4 [facility] Last Admin: 09/26/17 17:00 Dose: 0.5 ea - Labs Labs: 09/26/17 06:34 09/26/17 06:34 PT 29.3 SECONDS (9.7-12.2) H 09/11/17 16:28 INR 2.5 09/11/17 16:28 APTT 36 SECONDS (21-34) H 09/11/17 16:28 - Constitutional Appears: Well - Head Exam Head Exam: ATRAUMATIC, NORMAL INSPECTION, NORMOCEPHALIC - Eye Exam Eye Exam: EOMI, Normal appearance, PERRL Pupil Exam: NORMAL ACCOMODATION, PERRL - ENT Exam ENT Exam: Mucous Membranes Moist, Normal Exam - Neck Exam Neck Exam: Full ROM, Normal Inspection. absent: Lymphadenopathy - Respiratory Exam Respiratory Exam: Decreased Breath Sounds - Cardiovascular Exam Cardiovascular Exam: REGULAR RHYTHM, +S1, +S2 - GI/Abdominal Exam GI & Abdominal Exam: Soft, Diminished Bowel Sounds - Rectal Exam Rectal Exam: Deferred Assessment and Plan (1) Abdominal pain Status: Acute (2) Aspiration pneumonia Status: Acute (3) Elevated d-dimer Status: Acute (4) Headache Status: Acute (5) Metastatic breast cancer Status: Acute (6) Nausea Status: Acute (7) Pulmonary venous congestion Status: Acute (8) Sepsis Status: Acute (9) Vomiting Status: Acute - Assessment and Plan (Free Text) Plan: Follow-up with the consultations Patient is more alert awake expressed to go to the rehab Encourage p.o. feeding Discussed with the sister and brother before Continue current management
--- NOTE | 2017-09-26 20:50 | CP.PCM.PN ---
Subjective - Date & Time of Evaluation Date of Evaluation: 09/26/17 Time of Evaluation: 20:48 - Subjective Subjective: Pulmonary Follow up The Patient was seen and examined at the bedside, Medical records reviewed, and management issues were discussed and formulated with the house staff. Pt afebrile Patient had one episode of agitations last night, received Ativan 1mg IVP x1 dose Comfortable and has no new complaints. Pain well controlled. He denies any fever/chills, chest pain, shortness of breath, wheezing, cough or hemoptysis. Most recent chest XR 09/19 shows mild bilateral congestion, left lower lobe atelectasis and possible right lower lobe infiltrate which could be secondary to aspiration Tolerating IV antibiotics with Meropenem Appetite is poor Lower extremity venous doppler on 09/21/2017 negative bilaterally for DVT. VQ scan on 09/21/2017: low probability scan for PE. Objective - Vital Signs/Intake and Output Vital Signs (last 24 hours): Temp Pulse Resp BP Pulse Ox 98.2 F 74 20 115/71 96 09/26/17 15:00 09/26/17 15:00 09/26/17 15:00 09/26/17 15:00 09/26/17 15:00 Intake and Output: 09/26/17 09/27/17 18:59 06:59 Intake Total 760 Balance 760 - Medications Medications: Current Medications Enoxaparin Sodium (Lovenox) 40 mg SC DAILY [facility] Levothyroxine Sodium (Synthroid) 25 mcg PO DAILY@0630 [facility] Last Admin: 09/26/17 05:30 Dose: 25 mcg Metoprolol Tartrate (Lopressor) 12.5 mg PO BID [facility] Last Admin: 09/26/17 17:17 Dose: 12.5 mg Pantoprazole Sodium (Protonix Ec Tab) 40 mg PO DAILY [facility] Last Admin: 09/26/17 10:48 Dose: 40 mg Vitamin A (Vitamin A & D Oint Ud Foilpak) 0.5 ea TOP Q4 [facility] Last Admin: 09/26/17 20:26 Dose: Not Given - Labs Labs: 09/26/17 06:34 09/26/17 06:34 PT 29.3 SECONDS (9.7-12.2) H 09/11/17 16:28 INR 2.5 09/11/17 16:28 APTT 36 SECONDS (21-34) H 09/11/17 16:28 - Constitutional Appears: Well, Non-toxic, No Acute Distress - Head Exam Head Exam: ATRAUMATIC, NORMOCEPHALIC - Eye Exam Eye Exam: EOMI, Normal appearance Pupil Exam: NORMAL ACCOMODATION, PERRL - ENT Exam ENT Exam: Mucous Membranes Moist - Neck Exam Neck Exam: Full ROM. absent: Lymphadenopathy, Tenderness, Thyromegaly Additional comments: moderate facial and neck and upper chest pitting edema - Respiratory Exam Respiratory Exam: Clear to Ausculation Bilateral, NORMAL BREATHING PATTERN. absent: Accessory Muscle Use, Chest Wall Tenderness, Decreased Breath Sounds, Prolonged Expiratory Phase, Rales, Rhonchi, Wheezes, Respiratory Distress, Stridor - Cardiovascular Exam Cardiovascular Exam: REGULAR RHYTHM, +S1, +S2. absent: Diastolic murmur, JVD, Murmur - GI/Abdominal Exam GI & Abdominal Exam: Soft, Normal Bowel Sounds. absent: Distended, Guarding, Rigid, Tenderness, Diminished Bowel Sounds, Hypoactive Bowel Sounds - Extremities Exam Extremities Exam: Full ROM, Pedal Edema (+3 bilateral). absent: Calf Tenderness , Joint Swelling - Back Exam Back Exam: absent: CVA tenderness (L), CVA tenderness (R) - Neurological Exam Neurological Exam: Alert, Awake, CN II-XII Intact, Oriented x3 Assessment and Plan (1) Elevated d-dimer Status: Acute (2) Aspiration pneumonia Status: Acute (3) Sepsis Status: Acute (4) Pulmonary venous congestion Status: Acute (5) Metastatic breast cancer Status: Acute - Assessment and Plan (Free Text) Assessment: Assessment & Plan: Lower extremity venous doppler on 09/21/2017 negative bilaterally for DVT. VQ scan on 09/21/2017: low probability scan for PE. Patient tolerating Enoxaparin Sodium (Lovenox) 56 mg SC BID Status: Acute (2) Aspiration pneumonia Assessment & Plan: Afebrile No leukocytosis Adequate saturation Continue meropenem Pulmonary toileting Out of bed to chair Most recent chest XR 09/19 shows mild bilateral congestion, left lower lobe atelectasis and possible right lower lobe infiltrate which could be secondary to aspiration Status: Acute (3) Sepsis Assessment & Plan: Continue IV antibiotics Blood culture has been negative Trend WBC count and fever curve Status: Acute (4) Pulmonary venous congestion Assessment & Plan: Patient with bilateral leg swelling and mild pulmonary vascular congestion on most recent chest XR Otherwise No evidence of overt fluid overload on physical exam 09/23, received one dose of IV Lasix 20mg yesterday No Lasix today and reevaluate fluid status tomorrow Status: Acute (5) Metastatic breast cancer Assessment & Plan: Metastatic breast cancer - family considering hospice care Continue supportive care Status: Acute
--- NOTE | 2017-09-27 04:32 | PN ---
DATE: ENDOCRINOLOGY FOLLOWUP NOTE LOCATION: Room 359. SUBJECTIVE: This is a 57-year-old female with metastatic breast carcinoma and is now being followed closely for metabolic management. Her glycemic levels are near optimal at this time; however, her oral intake has remained very poor and suboptimal with progressive weight loss and really clinical metabolic deterioration as noted thereof. She remains clinically euthyroid and biochemically has evidence of early hypothyroidism as noted thereof. Her latest chemistry showed a BUN of 8, sodium 142, potassium 4.2, chloride 114, CO2 of 19, glucose 144, creatinine 0.6. Her latest thyroid study showed a T4 of 6.28 with a TSH of 5.50. PLAN: At this time, we will continue the very low dose levothyroxine given as 25 mcg once daily as ordered. We will titrate incrementally as indicated to optimize metabolic control. We will follow. Diane Kuhn MD
[2017-09-27] MEDS: Vitamins A & D Oint UD Foilpak TOP SCH ×7 (05:00→23:16)
[2017-09-27] MEDS: Levothyroxine 25 MCG TAB PO SCH (07:00)
[2017-09-27] MEDS: Enoxaparin 40 mg Syringe SC SCH (09:53)
[2017-09-27] MEDS: Pantoprazole 40 mg EC Tab PO SCH (09:53)
--- NOTE | 2017-09-27 12:50 | PN ---
DATE: ENDOCRINOLOGY FOLLOWUP NOTE ROOM NO: 359. SUBJECTIVE: This is a 57-year-old female with recent admission for metastatic breast carcinoma and generalized body weakness with clinical deterioration as noted thereof. She is actually terminally ill at this point in time, awaiting possible transfer to hospice care as noted. She remains clinically euthyroid and biochemically has evidence of early hypothyroidism with a latest T4 of 6.28 and a TSH of 5.50. Her latest chemistry showed a BUN of 8, sodium 142, potassium 4.2, chloride is 114, CO2 19, glucose 144 and creatinine is 0.6. PLAN: So at this time, we will continue the low dose Levothyroxine given as 25 mcg daily as ordered. We will obtain serum chemistries and supplement accordingly as needed. We will follow. Diane Kuhn MD
--- NOTE | 2017-09-27 16:04 | CP.PCM.PN ---
Subjective - Date & Time of Evaluation Date of Evaluation: 09/27/17 Time of Evaluation: 16:01 - Subjective Subjective: Pulmonary follow up; covering Dr Willis The patient was seen and examined at the bedside, medical records reviewed, and management issues were discussed and formulated with the house staff. 57 year old female with PMHx of metastatic breast cancer who presented to the ED on 09/08 for evaluation at request of oncologist Dr Lawrence Most recent chest XR on 09/19: mild bilateral congestion, left lower lobe atelectasis and possible right lower lobe infiltrate which could be secondary to aspiration Lower extremity venous doppler on 09/21: negative for DVT bilaterally VQ scan on 09/21: low probability scan for PE Last 24 hour events: Comfortable, no new complaints Pain well controlled Denies fever/chills, chest pain, shortness of breath, wheezing, cough, hemoptysis Tolerating IV antibiotics with Meropenem Appetite is poor Afebrile Hemodynamically stable Objective - Vital Signs/Intake and Output Vital Signs (last 24 hours): Temp Pulse Resp BP Pulse Ox 98.4 F 78 20 110/69 97 09/27/17 09:27 09/27/17 14:30 09/27/17 09:27 09/27/17 14:30 09/27/17 14:30 Intake and Output: 09/27/17 09/27/17 06:59 18:59 Intake Total 710 Balance 710 - Medications Medications: Current Medications Enoxaparin Sodium (Lovenox) 40 mg SC DAILY [facility] Last Admin: 09/27/17 09:53 Dose: 40 mg Levothyroxine Sodium (Synthroid) 25 mcg PO DAILY@0630 [facility] Last Admin: 09/27/17 07:00 Dose: 25 mcg Metoprolol Tartrate (Lopressor) 12.5 mg PO BID [facility] Last Admin: 09/27/17 09:53 Dose: 12.5 mg Pantoprazole Sodium (Protonix Ec Tab) 40 mg PO DAILY [facility] Last Admin: 09/27/17 09:53 Dose: 40 mg Vitamin A (Vitamin A & D Oint Ud Foilpak) 0.5 ea TOP Q4 [facility] Last Admin: 09/27/17 13:14 Dose: Not Given - Labs Labs: 09/26/17 06:34 09/26/17 06:34 PT 29.3 SECONDS (9.7-12.2) H 09/11/17 16:28 INR 2.5 09/11/17 16:28 APTT 36 SECONDS (21-34) H 09/11/17 16:28 Assessment and Plan (1) Elevated d-dimer Assessment & Plan: Lower extremity venous doppler on 09/21/2017 negative bilaterally for DVT. VQ scan on 09/21/2017: low probability scan for PE. Patient tolerating Enoxaparin Sodium (Lovenox) 56 mg SC BID Status: Acute (2) Aspiration pneumonia Assessment & Plan: Afebrile No leukocytosis Adequate saturation Continue meropenem Pulmonary toileting Out of bed to chair Most recent chest XR 09/19 shows mild bilateral congestion, left lower lobe atelectasis and possible right lower lobe infiltrate which could be secondary to aspiration Status: Acute (3) Sepsis Assessment & Plan: Continue IV antibiotics Blood culture has been negative Trend WBC count and fever curve Status: Acute (4) Pulmonary venous congestion Assessment & Plan: Patient with bilateral leg swelling and mild pulmonary vascular congestion on most recent chest XR Otherwise No evidence of overt fluid overload on physical exam 09/23, received one dose of IV Lasix 20mg No Lasix today and reevaluate fluid status tomorrow Status: Acute (5) Metastatic breast cancer Assessment & Plan: Metastatic breast cancer - family considering hospice care Continue supportive care Status: Acute
--- NOTE | 2017-09-27 18:43 | CP.PCM.PN ---
Subjective - Date & Time of Evaluation Date of Evaluation: 09/27/17 Time of Evaluation: 06:00 - Subjective Subjective: clinically improved Objective - Vital Signs/Intake and Output Vital Signs (last 24 hours): Temp Pulse Resp BP Pulse Ox 98.4 F 78 20 102/65 95 09/27/17 16:44 09/27/17 16:44 09/27/17 16:44 09/27/17 16:44 09/27/17 16:44 Intake and Output: 09/27/17 09/27/17 06:59 18:59 Intake Total 710 Balance 710 - Medications Medications: Current Medications Enoxaparin Sodium (Lovenox) 40 mg SC DAILY [facility] Last Admin: 09/27/17 09:53 Dose: 40 mg Magnesium Sulfate/Dextrose (Magnesium Sulfate 1 Gm/100 Ml D5w) 1 gm in 100 mls @ 300 mls/hr IVPB Q30M [facility] Stop: 09/27/17 19:34 Meropenem 500 mg/ Sodium (Chloride) 100 mls @ 100 mls/hr IVPB Q8 [facility] PRN Reason: Protocol Stop: 09/30/17 14:59 Levothyroxine Sodium (Synthroid) 25 mcg PO DAILY@0630 [facility] Last Admin: 09/27/17 07:00 Dose: 25 mcg Megestrol Acetate (Megace) 400 mg PO BID [facility] Metoprolol Tartrate (Lopressor) 12.5 mg PO BID [facility] Last Admin: 09/27/17 09:53 Dose: 12.5 mg Pantoprazole Sodium (Protonix Ec Tab) 40 mg PO DAILY [facility] Last Admin: 09/27/17 09:53 Dose: 40 mg Vitamin A (Vitamin A & D Oint Ud Foilpak) 0.5 ea TOP Q4 [facility] Last Admin: 09/27/17 13:14 Dose: Not Given - Labs Labs: 09/26/17 06:34 09/26/17 06:34 PT 29.3 SECONDS (9.7-12.2) H 09/11/17 16:28 INR 2.5 09/11/17 16:28 APTT 36 SECONDS (21-34) H 09/11/17 16:28 - Constitutional Appears: Well - Head Exam Head Exam: ATRAUMATIC, NORMAL INSPECTION, NORMOCEPHALIC - Eye Exam Eye Exam: EOMI, Normal appearance, PERRL Pupil Exam: NORMAL ACCOMODATION, PERRL - ENT Exam ENT Exam: Mucous Membranes Moist, Normal Exam - Neck Exam Neck Exam: Full ROM, Normal Inspection. absent: Lymphadenopathy - Respiratory Exam Respiratory Exam: Decreased Breath Sounds - Cardiovascular Exam Cardiovascular Exam: REGULAR RHYTHM, +S1, +S2 - GI/Abdominal Exam GI & Abdominal Exam: Soft, Diminished Bowel Sounds - Rectal Exam Rectal Exam: Deferred Assessment and Plan (1) Abdominal pain Status: Acute (2) Aspiration pneumonia Status: Acute (3) Elevated d-dimer Status: Acute (4) Headache Status: Acute (5) Metastatic breast cancer Status: Acute (6) Nausea Status: Acute (7) Pulmonary venous congestion Status: Acute (8) Sepsis Status: Acute (9) Vomiting Status: Acute - Assessment and Plan (Free Text) Plan: For discharge planning discussed with the patient patient does not have much appetite today or the patient was eating earlier We will resume the Megace 400 twice daily Continue metoprolol Continue GI and DVT prophylaxis Discharge planning Follow-up with hemato-oncologist Follow-up with the other consultants hemoglobin hematocrit stable as of 3 5 last lab Potassium is now 4.2 calcium is 2.9 magnesium is 1.3 which was normal yesterday TSH is borderline Magnesium supplementation
[2017-09-27] MEDS: Magnesium Sulfate 1 gm in D5W 1 GM/100 ML BAG IVPB SCH ×2 (19:03→20:20)
[2017-09-27] MEDS: Megestrol Acetate 40 mg/ml Cup PO SCH (19:03)
[2017-09-27] MEDS: Meropenem 500 MG in Sodium Chloride 0.9% 100 ML IVPB SCH (21:06)
--- NOTE | 2017-09-27 22:33 | CP.PCM.PN ---
Subjective - Date & Time of Evaluation Date of Evaluation: 09/27/17 Time of Evaluation: 22:33 - Subjective Subjective: AFEBRILE, NO NEW COMPLAINTS. APPETITE POOR. DENIES SHORTNESS OF BREATH, COUGH OR CHEST PAIN PAIN WELL CONTROLLED LABS REVIEWED wbc 7.2 H/H STABLE PLT 102 IMPROVING LFTS BILI 5.7. tRANSAMINASES IMPROVING. ALL CULTURES NEGATIVE. Objective - Vital Signs/Intake and Output Vital Signs (last 24 hours): Temp Pulse Resp BP Pulse Ox 98.4 F 78 20 102/65 95 09/27/17 16:44 09/27/17 16:44 09/27/17 16:44 09/27/17 16:44 09/27/17 16:44 - Medications Medications: Current Medications Enoxaparin Sodium (Lovenox) 40 mg SC DAILY [facility] Last Admin: 09/27/17 09:53 Dose: 40 mg Meropenem 500 mg/ Sodium (Chloride) 100 mls @ 100 mls/hr IVPB Q8 [facility] PRN Reason: Protocol Stop: 09/30/17 14:59 Last Admin: 09/27/17 21:06 Dose: 100 mls/hr Levothyroxine Sodium (Synthroid) 25 mcg PO DAILY@0630 [facility] Last Admin: 09/27/17 07:00 Dose: 25 mcg Megestrol Acetate (Megace) 400 mg PO BID [facility] Last Admin: 09/27/17 19:03 Dose: 400 mg Metoprolol Tartrate (Lopressor) 12.5 mg PO BID [facility] Last Admin: 09/27/17 19:03 Dose: 12.5 mg Pantoprazole Sodium (Protonix Ec Tab) 40 mg PO DAILY [facility] Last Admin: 09/27/17 09:53 Dose: 40 mg Vitamin A (Vitamin A & D Oint Ud Foilpak) 0.5 ea TOP Q4 [facility] Last Admin: 09/27/17 20:00 Dose: 0.5 ea - Labs Labs: 09/26/17 06:34 09/26/17 06:34 PT 29.3 SECONDS (9.7-12.2) H 09/11/17 16:28 INR 2.5 09/11/17 16:28 APTT 36 SECONDS (21-34) H 09/11/17 16:28 - Constitutional Appears: No Acute Distress, Cachectic, Chronically Ill - Head Exam Head Exam: NORMAL INSPECTION - Eye Exam Eye Exam: PERRL, Scleral icterus - ENT Exam ENT Exam: Normal Oropharynx - Neck Exam Neck Exam: Normal Inspection - Respiratory Exam Respiratory Exam: Decreased Breath Sounds, Rhonchi (few scattered rhonchi LEFT lung.) Additional comments: right base. - Cardiovascular Exam Cardiovascular Exam: REGULAR RHYTHM, +S1, +S2 - GI/Abdominal Exam GI & Abdominal Exam: Soft, Normal Bowel Sounds - Extremities Exam Extremities Exam: absent: Calf Tenderness, Pedal Edema - Neurological Exam Neurological Exam: Awake, CN II-XII Intact, Oriented x3 - Psychiatric Exam Psychiatric exam: Normal Mood - Skin Skin Exam: Normal Color, Warm Assessment and Plan - Assessment and Plan (Free Text) Assessment: IMPRESSION ; -SEPSIS MOST LIKELY SECONDARY TO PNEUMONIA LLL PNEUMONIA ? ASPIRATIO VS NOSOCOMIAL PNEUMONIA. - R/O CATHETER SEPSIS ( +VE PIERRE-CATH ) - METASTATIC BREAST CA WITH OSSEOUS/LIVER METASTASES - ADVANCED CIRRHOSIS/ENCEPHALOPATHY - RT. HYDRONEPHROSIS. PLAN; on iv MEROPENEM 500 MG EVERY 8 HOURLY 09/19/17. continue for 7 days moretill 09/28/17 FOLLOW-UP BLOOD CULTURES . -ve to date fOLLOW-UP CXR IN AM TO CLEARING. PULMONARY TOILET.
[2017-09-28] MEDS: Vitamins A & D Oint UD Foilpak TOP SCH ×5 (04:59→21:00)
[2017-09-28] MEDS: Meropenem 500 MG in Sodium Chloride 0.9% 100 ML IVPB SCH ×3 (05:42→20:59)
[2017-09-28] MEDS: Levothyroxine 25 MCG TAB PO SCH (05:42)
[2017-09-28 07:11] LABS: BASO # 0.1 K/uL (0.0-0.2); BASO % 0.8 % (0.0-2.0); EOS % 0.1 % (0.0-4.0); HEMOGLOBIN 9.5 g/dL (11.0-16.0); LYMPH # 2.1 K/uL (1.0-4.3); LYMPH % 32.4 % (20.0-40.0); MEAN CELL VOLUME 88.8 fL (81.0-99.0); MEAN CORPUSCULAR HEMOGLOBIN 30.9 pg (27.0-31.0); MEAN CORPUSCULAR HGB CONC 34.8 g/dL (33.0-37.0); MEAN PLATELET VOLUME 10.4 fL (7.2-11.7); MONO # 1.1 K/uL (0.0-0.8); NEUT # 3.2 K/uL (1.8-7.0); NEUT % 49.7 % (50.0-75.0); NRBC % 0.2 % (0.0-2.0); RBC 3.08 Mil/uL (3.80-5.20); RED CELL DISTRIBUTION WIDTH 16.2 % (11.5-14.5); WHITE BLOOD COUNT 6.5 K/uL (4.8-10.8)
[2017-09-28 07:45] LABS: ALB/GLOB RATIO 0.5 (1.0-2.1); ALBUMIN 1.8 g/dL (3.5-5.0); ALT/SGPT 62 U/L (9-52); AST/SGOT 137 U/L (14-36); BLOOD UREA NITROGEN 9 mg/dL (7-17); CALCIUM 8.1 mg/dl (8.6-10.4); GFR AFRICAN-AMERICAN > 60; GFR NON-AFRICAN AMERICAN > 60
--- NOTE | 2017-09-28 09:00 | RAD ---
HISTORY: PNEUMONIA LLL COMPARISON: 09/19/2017 FINDINGS: LUNGS: No definite infiltrate PLEURA: Small bilateral pleural effusion CARDIOVASCULAR: Normal heart size. Right central venous infusion port. OSSEOUS STRUCTURES: No significant abnormalities. VISUALIZED UPPER ABDOMEN: Normal. OTHER FINDINGS: None. IMPRESSION: Small bilateral pleural effusion. No infiltrate.
--- NOTE | 2017-09-28 09:06 | CP.PCM.PN ---
Subjective - Date & Time of Evaluation Date of Evaluation: 09/28/17 Time of Evaluation: 08:15 - Subjective Subjective: clinically same Objective - Vital Signs/Intake and Output Vital Signs (last 24 hours): Temp Pulse Resp BP Pulse Ox 98.3 F 75 20 105/63 95 09/28/17 08:36 09/28/17 08:36 09/28/17 08:36 09/28/17 08:36 09/28/17 08:36 Intake and Output: 09/28/17 09/28/17 06:59 18:59 Intake Total 260 Balance 260 - Medications Medications: Current Medications Enoxaparin Sodium (Lovenox) 40 mg SC DAILY [facility] Last Admin: 09/27/17 09:53 Dose: 40 mg Meropenem 500 mg/ Sodium (Chloride) 100 mls @ 100 mls/hr IVPB Q8 [facility] PRN Reason: Protocol Stop: 09/30/17 14:59 Last Admin: 09/28/17 05:42 Dose: 100 mls/hr Levothyroxine Sodium (Synthroid) 25 mcg PO DAILY@0630 [facility] Last Admin: 09/28/17 05:42 Dose: 25 mcg Megestrol Acetate (Megace) 400 mg PO BID [facility] Last Admin: 09/27/17 19:03 Dose: 400 mg Metoprolol Tartrate (Lopressor) 12.5 mg PO BID [facility] Last Admin: 09/27/17 19:03 Dose: 12.5 mg Pantoprazole Sodium (Protonix Ec Tab) 40 mg PO DAILY [facility] Last Admin: 09/27/17 09:53 Dose: 40 mg Vitamin A (Vitamin A & D Oint Ud Foilpak) 0.5 ea TOP Q4 [facility] Last Admin: 09/28/17 09:00 Dose: Not Given - Labs Labs: 09/28/17 06:58 09/28/17 06:58 PT 29.3 SECONDS (9.7-12.2) H 09/11/17 16:28 INR 2.5 09/11/17 16:28 APTT 36 SECONDS (21-34) H 09/11/17 16:28 - Constitutional Appears: Well - Head Exam Head Exam: ATRAUMATIC, NORMAL INSPECTION, NORMOCEPHALIC - Eye Exam Eye Exam: EOMI, Normal appearance, PERRL Pupil Exam: NORMAL ACCOMODATION, PERRL - ENT Exam ENT Exam: Mucous Membranes Moist, Normal Exam - Neck Exam Neck Exam: Full ROM, Normal Inspection. absent: Lymphadenopathy - Respiratory Exam Respiratory Exam: Decreased Breath Sounds - Cardiovascular Exam Cardiovascular Exam: REGULAR RHYTHM, +S1, +S2 - GI/Abdominal Exam GI & Abdominal Exam: Soft, Diminished Bowel Sounds - Rectal Exam Rectal Exam: Deferred Assessment and Plan (1) Abdominal pain Status: Acute (2) Aspiration pneumonia Status: Acute (3) Elevated d-dimer Status: Acute (4) Headache Status: Acute (5) Metastatic breast cancer Status: Acute (6) Nausea Status: Acute (7) Pulmonary venous congestion Status: Acute (8) Sepsis Status: Acute (9) Vomiting Status: Acute - Assessment and Plan (Free Text) Plan: Discharge planning awaiting authorization from the insurance Encourage the food Consultation as ordered Follow-up Dr. Noreen Mireles Medications reviewed CBC CMP as needed platelet is better meropenem until 3 7 as per ID continue same
[2017-09-28] MEDS: Pantoprazole 40 mg EC Tab PO SCH (10:13)
[2017-09-28] MEDS: Enoxaparin 40 mg Syringe SC SCH (10:13)
[2017-09-28] MEDS: Megestrol Acetate 40 mg/ml Cup PO SCH ×2 (10:13→17:34)
--- NOTE | 2017-09-28 17:15 | PN ---
DATE: ENDOCRINOLOGY FOLLOWUP NOTE LOCATION: Room 359. SUBJECTIVE: This is a 57-year-old female with metastatic breast carcinoma and now being followed closely for metabolic management. Her glycemic levels are much improved at this time and she has remained clinically euthyroid as noted. The latest thyroid study showed a T4 of 6.28, with a TSH of 5.50. Her latest chemistries showed a BUN of 9, sodium 144, potassium 4.0, chloride 115, CO2 20, glucose 114, creatinine of 0.6. So at this time, we will continue the low dose Levothyroxine, given as 25 mcg once daily as ordered. We will titrate incrementally as indicated to optimize metabolic control. We will obtain serial chemistries and serial thyroid studies and titrate her dose regimen accordingly. We will follow. Diane Kuhn MD
[2017-09-29] MEDS: Vitamins A & D Oint UD Foilpak TOP SCH ×7 (00:30→23:51)
[2017-09-29] MEDS: Meropenem 500 MG in Sodium Chloride 0.9% 100 ML IVPB SCH ×3 (05:55→21:34)
[2017-09-29] MEDS: Levothyroxine 25 MCG TAB PO SCH (05:55)
[2017-09-29] MEDS: Pantoprazole 40 mg EC Tab PO SCH (10:02)
[2017-09-29] MEDS: Megestrol Acetate 40 mg/ml Cup PO SCH ×3 (10:02→17:59)
[2017-09-29] MEDS: Enoxaparin 40 mg Syringe SC SCH (10:03)
--- NOTE | 2017-09-29 20:15 | PN ---
DATE: ENDO FOLLOWUP NOTE LOCATION: Room 359. SUBJECTIVE: This is a 57-year-old female with recent admission for metastatic breast carcinoma and generalized body weakness and currently being followed closely for metabolic management. She remains clinically euthyroid at this time with evidence of early hypothyroidism as noted thereof. She is also tolerating the low dose levothyroxine replacement therapy as given. LABORATORY DATA: Her latest chemistries showed a BUN of 9, sodium 144, potassium 4.4, chloride 115, CO2 of 20, glucose 114, and creatinine 0.6. Her latest thyroid study showed a T4 of 6.28 with a TSH of 5.50. PLAN: At this time, we will continue the low dose levothyroxine given as 25 mcg daily as ordered. We will titrate incrementally as indicated to optimize metabolic control. We will follow and advise accordingly. Diane Kuhn MD
--- NOTE | 2017-09-29 21:30 | CP.PCM.PN ---
Subjective - Date & Time of Evaluation Date of Evaluation: 09/29/17 Time of Evaluation: 07:35 - Subjective Subjective: clinically same Objective - Vital Signs/Intake and Output Vital Signs (last 24 hours): Temp Pulse Resp BP Pulse Ox 98.3 F 82 20 126/80 99 09/29/17 16:00 09/29/17 16:00 09/29/17 16:00 09/29/17 16:00 09/29/17 16:00 Intake and Output: 09/29/17 09/30/17 18:59 06:59 Intake Total 460 Balance 460 - Medications Medications: Current Medications Enoxaparin Sodium (Lovenox) 40 mg SC DAILY [facility] Last Admin: 09/29/17 10:03 Dose: 40 mg Meropenem 500 mg/ Sodium (Chloride) 100 mls @ 100 mls/hr IVPB Q8 [facility] PRN Reason: Protocol Stop: 09/30/17 14:59 Last Admin: 09/29/17 14:21 Dose: 100 mls/hr Levothyroxine Sodium (Synthroid) 25 mcg PO DAILY@0630 [facility] Last Admin: 09/29/17 05:55 Dose: 25 mcg Megestrol Acetate (Megace) 400 mg PO BID [facility] Last Admin: 09/29/17 17:59 Dose: 400 mg Metoprolol Tartrate (Lopressor) 12.5 mg PO BID [facility] Last Admin: 09/29/17 17:58 Dose: 12.5 mg Pantoprazole Sodium (Protonix Ec Tab) 40 mg PO DAILY [facility] Last Admin: 09/29/17 10:02 Dose: 40 mg Vitamin A (Vitamin A & D Oint Ud Foilpak) 0.5 ea TOP Q4 [facility] Last Admin: 09/29/17 16:57 Dose: Not Given - Labs Labs: 09/28/17 06:58 09/28/17 06:58 PT 29.3 SECONDS (9.7-12.2) H 09/11/17 16:28 INR 2.5 09/11/17 16:28 APTT 36 SECONDS (21-34) H 09/11/17 16:28 - Constitutional Appears: Well - Head Exam Head Exam: ATRAUMATIC, NORMAL INSPECTION, NORMOCEPHALIC - Eye Exam Eye Exam: EOMI, Normal appearance, PERRL Pupil Exam: NORMAL ACCOMODATION, PERRL - ENT Exam ENT Exam: Mucous Membranes Moist, Normal Exam - Neck Exam Neck Exam: Full ROM, Normal Inspection. absent: Lymphadenopathy - Respiratory Exam Respiratory Exam: Decreased Breath Sounds - Cardiovascular Exam Cardiovascular Exam: REGULAR RHYTHM, +S1, +S2 - GI/Abdominal Exam GI & Abdominal Exam: Soft, Diminished Bowel Sounds - Rectal Exam Rectal Exam: Deferred Assessment and Plan (1) Abdominal pain Status: Acute (2) Aspiration pneumonia Status: Acute (3) Elevated d-dimer Status: Acute (4) Headache Status: Acute (5) Metastatic breast cancer Status: Acute (6) Nausea Status: Acute (7) Pulmonary venous congestion Status: Acute (8) Sepsis Status: Acute (9) Vomiting Status: Acute - Assessment and Plan (Free Text) Plan: On Megace Discharge planning Continue same DVT and GI prophylaxis Encourage p.o. feeding
[2017-09-30] MEDS: Vitamins A & D Oint UD Foilpak TOP SCH ×5 (04:33→20:16)
[2017-09-30] MEDS: Levothyroxine 25 MCG TAB PO SCH (05:32)
[2017-09-30] MEDS: Meropenem 500 MG in Sodium Chloride 0.9% 100 ML IVPB SCH ×2 (05:32→14:05)
[2017-09-30 07:26] LABS: BASO % 0.4 % (0.0-2.0); EOS % 0.2 % (0.0-4.0); HEMOGLOBIN 9.5 g/dL (11.0-16.0); LYMPH # 2.2 K/uL (1.0-4.3); LYMPH % 29.9 % (20.0-40.0); MEAN CELL VOLUME 88.7 fL (81.0-99.0); MEAN CORPUSCULAR HEMOGLOBIN 30.5 pg (27.0-31.0); MEAN CORPUSCULAR HGB CONC 34.4 g/dL (33.0-37.0); MEAN PLATELET VOLUME 10.4 fL (7.2-11.7); MONO # 1.4 K/uL (0.0-0.8); MONO % 18.7 % (0.0-10.0); NEUT # 3.7 K/uL (1.8-7.0); NEUT % 50.8 % (50.0-75.0); NRBC % 0.7 % (0.0-2.0); RBC 3.1 Mil/uL (3.80-5.20); RED CELL DISTRIBUTION WIDTH 16.3 % (11.5-14.5); WHITE BLOOD COUNT 7.2 K/uL (4.8-10.8)
[2017-09-30 07:51] LABS: ALB/GLOB RATIO 0.5 (1.0-2.1); ALBUMIN 1.9 g/dL (3.5-5.0); ALT/SGPT 57 U/L (9-52); AST/SGOT 122 U/L (14-36); BLOOD UREA NITROGEN 11 mg/dL (7-17); CALCIUM 8.2 mg/dl (8.6-10.4); GFR AFRICAN-AMERICAN > 60; GFR NON-AFRICAN AMERICAN > 60
--- NOTE | 2017-09-30 08:41 | CARD ---
APPROVED REPORT EKG Measurement Heart [id number] ID [id number] <Conclusion> Sinus tachycardia Otherwise normal ECG
--- NOTE | 2017-09-30 08:41 | CARD ---
APPROVED REPORT EKG Measurement Heart [id number] <Conclusion> Sinus tachycardia Otherwise normal ECG
[2017-09-30] MEDS: Enoxaparin 40 mg Syringe SC SCH (10:27)
[2017-09-30] MEDS: Pantoprazole 40 mg EC Tab PO SCH (10:27)
[2017-09-30] MEDS: Megestrol Acetate 40 mg/ml Cup PO SCH ×2 (10:27→17:58)
[2017-09-30] MEDS: Magnesium Sulfate 1 gm in D5W 1 GM/100 ML BAG IVPB SCH ×2 (12:07→12:50)
--- NOTE | 2017-09-30 15:47 | CP.PCM.PN ---
Subjective - Date & Time of Evaluation Date of Evaluation: 09/30/17 Time of Evaluation: 15:47 - Subjective Subjective: Alert, awake, follows commands, no acute distrss. Objective - Vital Signs/Intake and Output Vital Signs (last 24 hours): Temp Pulse Resp BP Pulse Ox 98.1 F 77 18 123/78 98 09/30/17 07:50 09/30/17 15:23 09/30/17 07:50 09/30/17 15:23 09/30/17 15:23 Intake and Output: 09/30/17 09/30/17 06:59 18:59 Intake Total 100 150 Output Total 600 Balance -500 150 - Medications Medications: Current Medications Enoxaparin Sodium (Lovenox) 40 mg SC DAILY [facility] Last Admin: 09/30/17 10:27 Dose: 40 mg Levothyroxine Sodium (Synthroid) 25 mcg PO DAILY@0630 [facility] Last Admin: 09/30/17 05:32 Dose: 25 mcg Megestrol Acetate (Megace) 400 mg PO BID [facility] Last Admin: 09/30/17 10:27 Dose: 400 mg Metoprolol Tartrate (Lopressor) 12.5 mg PO BID [facility] Last Admin: 09/30/17 10:26 Dose: 12.5 mg Pantoprazole Sodium (Protonix Ec Tab) 40 mg PO DAILY [facility] Last Admin: 09/30/17 10:27 Dose: 40 mg Vitamin A (Vitamin A & D Oint Ud Foilpak) 0.5 ea TOP Q4 [facility] Last Admin: 09/30/17 12:07 Dose: 0.5 ea - Labs Labs: 09/30/17 07:11 09/30/17 07:11 PT 29.3 SECONDS (9.7-12.2) H 09/11/17 16:28 INR 2.5 09/11/17 16:28 APTT 36 SECONDS (21-34) H 09/11/17 16:28 Assessment and Plan - Assessment and Plan (Free Text) Assessment: Patient admitted with metastatic breast cancer, seen and examined. More awake and responsive, diet as tolerated. Has bed available at [facility] as per director of social services. Discussed with DR Juanita Wilson, plan to discharge to the rehab today as per DR Juanita Wilson. Antibiotc therapy completed for pneumonia, remains afebrile. To continue with present medications, PT and OT as tolerated.
[2017-09-30 17:06] VITALS: BP 124/78; PULSE 82; RESP 20; TEMP 98.4; O2SAT 96
--- NOTE | 2017-09-30 17:41 | PN ---
DATE: LOCATION: Room 359. SUBJECTIVE: This is a 57-year-old female with metastatic breast carcinoma, receiving comfort measures at this time and is also being followed closely for metabolic management. Her glycemic lab was near optimal as noted and her oral intake remains very poor and variable as noted. She remains clinically euthyroid and the latest thyroid study shows a T4 of 6.28 with a TSH of 5.50. Her latest chemistries shows a BUN of 9, sodium 144, potassium 4.0, chloride 116, CO2 20, glucose 114, and creatinine 0.6. So at this time, we will continue the low-dose levothyroxine given at 25 mcg once daily in the morning as ordered. We will titrate and as indicated to optimize metabolic control. We will follow and advise accordingly. Diane Kuhn MD
--- NOTE | 2017-09-30 19:16 | CP.PCM.PN ---
Subjective - Date & Time of Evaluation Date of Evaluation: 09/30/17 Time of Evaluation: 07:10 - Subjective Subjective: clinically same Objective - Vital Signs/Intake and Output Vital Signs (last 24 hours): Temp Pulse Resp BP Pulse Ox 98.4 F 82 20 124/78 96 09/30/17 16:00 09/30/17 16:00 09/30/17 16:00 09/30/17 16:00 09/30/17 16:00 Intake and Output: 09/30/17 10/01/17 18:59 06:59 Intake Total 750 Balance 750 - Medications Medications: Current Medications Enoxaparin Sodium (Lovenox) 40 mg SC DAILY [facility] Last Admin: 09/30/17 10:27 Dose: 40 mg Levothyroxine Sodium (Synthroid) 25 mcg PO DAILY@0630 [facility] Last Admin: 09/30/17 05:32 Dose: 25 mcg Megestrol Acetate (Megace) 400 mg PO BID [facility] Last Admin: 09/30/17 17:58 Dose: 400 mg Metoprolol Tartrate (Lopressor) 12.5 mg PO BID [facility] Last Admin: 09/30/17 17:58 Dose: 12.5 mg Pantoprazole Sodium (Protonix Ec Tab) 40 mg PO DAILY [facility] Last Admin: 09/30/17 10:27 Dose: 40 mg Vitamin A (Vitamin A & D Oint Ud Foilpak) 0.5 ea TOP Q4 [facility] Last Admin: 09/30/17 16:39 Dose: Not Given - Labs Labs: 09/30/17 07:11 09/30/17 07:11 PT 29.3 SECONDS (9.7-12.2) H 09/11/17 16:28 INR 2.5 09/11/17 16:28 APTT 36 SECONDS (21-34) H 09/11/17 16:28 Assessment and Plan (1) Abdominal pain Status: Acute (2) Aspiration pneumonia Status: Acute (3) Elevated d-dimer Status: Acute (4) Headache Status: Acute (5) Metastatic breast cancer Status: Acute (6) Nausea Status: Acute (7) Pulmonary venous congestion Status: Acute (8) Sepsis Status: Acute (9) Vomiting Status: Acute
== END 2017-09-30 21:50 | DRG 557 ==
LOC: C.ER 15:45 → C.9E 21:01 → C.3T 23:46
PROVIDERS: ADMIT Internal Medicine Nephrology; ATTEND Internal Medicine Nephrology
DX: C78.7 Secondary malignant neoplasm of liver and intrahepatic bile duct (principal); J69.0 Pneumonitis due to inhalation of food and vomit; G92 Toxic encephalopathy; A41.9 Sepsis, unspecified organism; K72.90 Hepatic failure, unspecified without coma; C79.51 Secondary malignant neoplasm of bone; E86.0 Dehydration; K74.60 Unspecified cirrhosis of liver; N13.30 Unspecified hydronephrosis; R32 Unspecified urinary incontinence; E87.6 Hypokalemia; Z79.810 Long term (current) use of selective estrogen receptor modulators (SERMs); Z66 Do not resuscitate; K59.00 Constipation, unspecified; I10 Essential (primary) hypertension; E78.5 Hyperlipidemia, unspecified; E27.9 Disorder of adrenal gland, unspecified; E07.81 Sick-euthyroid syndrome; K80.20 Calculus of gallbladder without cholecystitis without obstruction; K21.9 Gastro-esophageal reflux disease without esophagitis; F17.210 Nicotine dependence, cigarettes, uncomplicated; Z85.3 Personal history of malignant neoplasm of breast; Z86.73 Personal history of transient ischemic attack (TIA), and cerebral infarction without residual deficits; Z90.710 Acquired absence of both cervix and uterus; Z92.21 Personal history of antineoplastic chemotherapy; Z90.12 Acquired absence of left breast and nipple